=== PATIENT | female | born 1950 | race Caucasian/White ===

== ENCOUNTER 2017-03-19 12:10 | Inpatient (IN) | payer OTHER ==
[~2017-03-19] VITALS: Ht 167.6 cm; Wt 64.2 kg
[~2017-03-19 12:10] MED LIST: FOLI-17 PO; METH-356 PO; MULT1TAB60 PO; THIA100T6 PO; [UNRECOGNIZED DRUG - REMARK]
[2017-03-19] MEDS ORDERED: SODIUM CHLORIDE 0.9% 1,000 ML IV ONE (12:27)
[2017-03-19] MEDS ORDERED: CEFTRIAXONE PMX 2GM/50ML 50 ML IV SCH (12:30)
[2017-03-19] MEDS ORDERED: DEXAMETHASONE 4 MG/ML, 1ML IVPush ONE (12:30)
[2017-03-19] MEDS ORDERED: ACETAMINOPHEN 650 MG SUPP PR ONE (12:30)
[2017-03-19] MEDS ORDERED: SODIUM CHLORIDE FLUSH 10ML SYR IVF ONE (12:30)
[2017-03-19] MEDS ORDERED: SODIUM CHLORIDE 0.9% 1,000ML IVBOLUS ONE ×2 (12:30→14:30)
[2017-03-19] MEDS ORDERED: LORazepam 2 MG/ML, 1ML ONE (12:55)
[2017-03-19] MEDS ORDERED: LORazepam 2 MG/ML, 1ML IVPush ONE (13:00)
[2017-03-19] MEDS ORDERED: PLEASE ENTER HEIGHT AND WEIGHT MC SCH (13:00)
[2017-03-19 13:25] LABS: HEMOGLOBIN 9.8 g/dL (11.7-16.4); WHITE BLOOD COUNT 9.5 x10^3/uL (3.4-10)
[2017-03-19 13:38] LABS: ASPARTATE AMINO TRANSFERASE 16 U/L (15-37); BLOOD UREA NITROGEN 15 mg/dL (7-18)
[2017-03-19 13:43] LABS: IS PT STATUS REG ER OR PRE ER? YES
[2017-03-19] MEDS ORDERED: ACETAMINOPHEN 650 MG SUPP ONE (13:56)
[2017-03-19] MEDS ORDERED: CEFTRIAXONE PMX 2GM/50ML 50 ML ONE (13:56)
[2017-03-19] MEDS ORDERED: DEXAMETHASONE 4 MG/ML, 5ML ONE (14:10)
[2017-03-19 14:30] LABS: GLUCOSE, CSF 70 mg/dL (40-80)
[2017-03-19] MEDS ORDERED: PIPERACILLIN/TAZO/PMX 3.375GM 50 ML IV ONE (14:30)
[2017-03-19] MEDS ORDERED: PIPERACILLIN/TAZO/PMX 3.375GM 50 ML ONE (14:46)
[2017-03-19 16:35] VITALS: BP 159/81
[2017-03-19] MEDS ORDERED: LORazepam 2 MG/ML, 1ML IVPush PRN (19:00)
[2017-03-19] MEDS ORDERED: PROMETHAZINE 25 MG/ML, 1ML IM PRN (19:00)
[2017-03-19] MEDS ORDERED: POLYETHYLENE GLYCOL 17 GM PACKET PO PRN (19:00)
[2017-03-19] MEDS ORDERED: BISACODYL 10 MG SUPP PR PRN (19:00)
[2017-03-19] MEDS ORDERED: ACETAMINOPHEN 325 MG TABLET PO PRN (19:00)
[2017-03-19] MEDS ORDERED: DOCUSATE 100 MG CAPSULE PO PRN (19:00)
[2017-03-19] MEDS ORDERED: MAGNESIUM SULFATE PMX 2GM/50ML 50 ML IV ONE (19:00)
[2017-03-19 19:48] LABS: IS PT STATUS REG ER OR PRE ER? NO
[2017-03-19 20:00] VITALS: BP 149/83
[2017-03-19] MEDS: ENOXAPARIN 40 MG/0.4 ML SQ SCH (20:49)
[2017-03-19] MEDS: FAMOTIDINE 20 MG/2 ML IVPush SCH (20:49)
[2017-03-19] MEDS: METHADONE 10 MG TABLET PO SCH (20:49)
[2017-03-19] MEDS: PIPERACILLIN/TAZO/PMX 3.375GM 50 ML IV SCH (23:05)
[2017-03-20] MEDS: SODIUM CHLORIDE 0.9% 1,000 ML IV SCH ×2 (01:08→09:12)
[2017-03-20 01:51] LABS: IS PT STATUS REG ER OR PRE ER? NO
[2017-03-20 02:00] VITALS: BP 144/77
[2017-03-20 04:48] LABS: DAU SCREEN DISCLAIMER
[2017-03-20 05:27] LABS: HEMATOCRIT 29.9 % (34.6-47.8); HEMOGLOBIN 9.8 g/dL (11.7-16.4); WHITE BLOOD COUNT 5.2 x10^3/uL (3.4-10)
[2017-03-20 05:53] LABS: ASPARTATE AMINO TRANSFERASE 19 U/L (15-37); BLOOD UREA NITROGEN 9 mg/dL (7-18)
[2017-03-20 06:34] LABS: DIFF TOTAL CELLS COUNTED 100 CELL DIFF
[2017-03-20 06:36] LABS: ANISOCYTOSIS 1+; MICROCYTOSIS 1+; VERIFY COUNTS? YES
[2017-03-20 06:40] VITALS: BP 123/71
[2017-03-20] MEDS: PIPERACILLIN/TAZO/PMX 3.375GM 50 ML IV SCH (07:08)
[2017-03-20] MEDS ORDERED: FOLIC ACID 1 MG TABLET PO SCH (09:00)
[2017-03-20] MEDS: METHADONE 10 MG TABLET PO SCH ×2 (09:13→21:57)
[2017-03-20] MEDS: THIAMINE 100MG TABLET PO SCH (09:13)
[2017-03-20] MEDS: FOLIC ACID 1 MG TABLET PO SCH (09:13)
[2017-03-20] MEDS: MULTIVITAMIN 1 TABLET PO SCH (09:13)
[2017-03-20] MEDS: FAMOTIDINE 20 MG/2 ML IVPush SCH ×2 (09:13→21:57)
[2017-03-20] MEDS ORDERED: POTASSIUM CHLORIDE 20 MEQ TAB.ER.PRT PO ONE (10:00)
[2017-03-20 12:02] VITALS: BP 120/69
[2017-03-20 20:48] VITALS: BP 111/67
[2017-03-20] MEDS: ENOXAPARIN 40 MG/0.4 ML SQ SCH (21:57)
[2017-03-21 01:53] VITALS: BP 137/78
[2017-03-21 07:20] VITALS: BP 138/77
[2017-03-21] MEDS: FOLIC ACID 1 MG TABLET PO SCH (08:36)
[2017-03-21] MEDS: METHADONE 10 MG TABLET PO SCH (08:36)
[2017-03-21] MEDS: FAMOTIDINE 20 MG/2 ML IVPush SCH (08:36)
[2017-03-21] MEDS: MULTIVITAMIN 1 TABLET PO SCH (08:37)
[2017-03-21] MEDS: THIAMINE 100MG TABLET PO SCH (08:37)
[2017-03-21] MEDS ORDERED: FAMOTIDINE 20 MG TABLET PO SCH (21:00)
== END 2017-03-21 15:37 | disposition home or self-care (01) | DRG 896 ==
LOC: ED 14:22 → EDIP 14:32 → ED 14:42 → 4EST 16:30 → DCLOUNGE 03-21 15:24
PROVIDERS: ADMIT Internal Medicine; ATTEND Internal Medicine
PROC: 0T9B70Z Drainage of Bladder with Drainage Device, Via Natural or Artificial Opening (ICD-10-PCS; principal; 2017-03-19)
PROC: 009U3ZX Drainage of Spinal Canal, Percutaneous Approach, Diagnostic (ICD-10-PCS; 2017-03-19)
DX: F19.90 Other psychoactive substance use, unspecified, uncomplicated (principal); E43 Unspecified severe protein-calorie malnutrition; F11.90 Opioid use, unspecified, uncomplicated; E87.2 Acidosis; W19.XXXA Unspecified fall, initial encounter; F10.239 Alcohol dependence with withdrawal, unspecified; G40.901 Epilepsy, unspecified, not intractable, with status epilepticus; F17.200 Nicotine dependence, unspecified, uncomplicated; Y93.89 Activity, other specified; Y92.89 Other specified places as the place of occurrence of the external cause; Y99.8 Other external cause status; Z87.11 Personal history of peptic ulcer disease; Z98.51 Tubal ligation status
CPT/HCPCS: 36415; 62270; 70450; 71010; 80053; 80307; 81001; 82140; 82550; 82945; 83605; 83690; 83735; 84100; 84145; 84157; 84443; 84484; 85025; 85610; 85730; 87040; 87070; 87205; 89051; 93005; 96365; 96367; 96375; J0696; J1100; J1650; J2543; G0479; J2060; J3475; J7030; S0028

== ENCOUNTER 2017-04-30 14:15 | Emergency (ER) | payer OTHER ==
[~2017-04-30] VITALS: Ht 170.2 cm; Wt 62.0 kg
[2017-04-30] MEDS ORDERED: SODIUM CHLORIDE 0.9% 1,000 ML IV ONE (14:29)
[2017-04-30] MEDS ORDERED: ONDANSETRON 2MG/ML, 2ML IVPush ONE (14:30)
[2017-04-30] MEDS ORDERED: LORazepam 2 MG/ML, 1ML IVPush PRN (14:30)
[2017-04-30] MEDS ORDERED: SODIUM CHLORIDE 0.9% 1,000ML IVBOLUS ONE (14:30)
[2017-04-30] MEDS ORDERED: THIAMINE 100 MG in SODIUM CHLORIDE 0.9% 50 ML IVPB ONE (14:30)
[2017-04-30] MEDS ORDERED: SODIUM CHLORIDE FLUSH 10ML SYR IVF ONE (14:30)
[2017-04-30] MEDS ORDERED: ONDANSETRON 2MG/ML, 2ML ONE (14:48)
[2017-04-30] MEDS ORDERED: LORazepam 2 MG/ML, 1ML ONE (14:48)
[2017-04-30 15:05] LABS: ALANINE AMINOTRANSFERASE 14 U/L (12-78); ALBUMIN 3.2 g/dL (3.4-5.0); ANION GAP 11 mmol/L (5-15); CALCIUM 8.3 mg/dL (8.5-10.1); CHLORIDE 99 mmol/L (98-107)
[2017-04-30 15:09] LABS: ALKALINE PHOSPHATASE 108 U/L (45-117); BILIRUBIN,TOTAL 0.8 mg/dL (0.2-1.0); TOTAL PROTEIN 7.3 g/dL (6.4-8.2)
[2017-04-30 15:31] LABS: MD YES; MEAN CORPUSCULAR HEMOGLOBIN 26.5 pg (27.0-34.8); MEAN CORPUSCULAR HGB CONC 32.8 g/dL (32.4-35.8); MEAN CORPUSCULAR VOLUME 80.7 fL (80-100); MEAN PLATELET VOLUME 8.4 fL (7.4-10.4); PLATELET COUNT 232 x10^3/uL (130-400)
[2017-04-30 15:35] LABS: <PLATELET ESTIMATE> ADEQUATE; <PLT MORPHOLOGY> NORMAL PLT MORPH; <RBC MORPHOLOGY> NORMAL; EOS% (MANUAL) 2 % (1-7); LYMPHS% (MANUAL) 57 % (22-44); MONOS% (MANUAL) 9 % (2-9); SEGS% (MANUAL) 32 % (42-75)
[2017-04-30 16:15] LABS: EOS#(MANUAL) 0.11 x10^3/uL (0.0-0.4); LYMPH#(MANUAL) 3.02 x10^3/uL (1-3.4); MONOS#(MANUAL) 0.48 x10^3/uL (0.3-2.7)
[2017-04-30 16:57] VITALS: BP 130/86
== END 2017-04-30 16:59 | disposition home or self-care (01) ==
LOC: ED 16:42
DX: B96.89 Other specified bacterial agents as the cause of diseases classified elsewhere (principal); F10.129 Alcohol abuse with intoxication, unspecified; F11.90 Opioid use, unspecified, uncomplicated; F17.210 Nicotine dependence, cigarettes, uncomplicated
CPT/HCPCS: 36415; 71020; 80053; 83605; 83690; 83880; 85025; 87040; 93005; 96361; 96365; 96375; 99285; J2060; J2405; J3411; J7030

== ENCOUNTER 2018-03-27 09:44 | Inpatient (IN) | payer OTHER ==
[~2018-03-27] VITALS: Ht 170.2 cm; Wt 65.7 kg
[~2018-03-27 09:44] MED LIST changes: -THIA100T6 PO; +THIA100T67 PO
[2018-03-27] MEDS ORDERED: PANTOPRAZOLE 80 MG in SODIUM CHLORIDE 0.9% 50 ML IVPB ONE (10:25)
[2018-03-27] MEDS ORDERED: SODIUM CHLORIDE 0.9% 1,000 ML IV ONE (10:25)
[2018-03-27] MEDS ORDERED: SODIUM CHLORIDE FLUSH 10ML SYR IVF ONE (10:30)
[2018-03-27] MEDS ORDERED: ONDANSETRON 2MG/ML, 2ML IVPush ONE (10:30)
[2018-03-27] MEDS ORDERED: SODIUM CHLORIDE 0.9% 1,000ML IVBOLUS ONE (10:30)
[2018-03-27] MEDS ORDERED: ONDANSETRON 2MG/ML, 2ML ONE (10:43)
[2018-03-27 10:52] LABS: BASOPHILS # (AUTO) 0.05 x10^3/uL (0-0.1); BASOPHILS % (AUTO) 1 % (0-1); EOSINOPHILS % (AUTO) 0 % (1-7); LYMPHOCYTES # (AUTO) 0.82 x10^3/uL (1-3.4); LYMPHOCYTES % (AUTO) 9 % (22-44); MD NO; MEAN CORPUSCULAR HEMOGLOBIN 35.1 pg (27.0-34.8); MEAN CORPUSCULAR HGB CONC 33.8 g/dL (32.4-35.8); MEAN CORPUSCULAR VOLUME 103.7 fL (80-100); MEAN PLATELET VOLUME 8.3 fL (7.4-10.4); MONOCYTES # (AUTO) 0.69 x10^3/uL (0.2-0.8); MONOCYTES % (AUTO) 7 % (2-9); NEUTROPHILS # (AUTO) 7.73 x10^3/uL (1.8-6.8); NEUTROPHILS % (AUTO) 83 % (42-75); PLATELET COUNT 271 x10^3/uL (130-400); RED BLOOD COUNT 3.59 x10^6/uL (3.82-5.3); RED CELL DISTRIBUTION WIDTH 14.5 % (9.6-15.2)
[2018-03-27 10:57] LABS: INTERNATIONAL NORMALIZED RATIO 1.08 (0.93-1.1); PROTHROMBIN TIME 11.4 Seconds (9.6-11.5)
[2018-03-27 10:58] LABS: ALANINE AMINOTRANSFERASE 30 U/L (12-78); ALBUMIN 3.1 g/dL (3.4-5.0); ANION GAP 10 mmol/L (5-15); CHLORIDE 89 mmol/L (98-107); CREATININE 0.56 mg/dL (0.55-1.02)
[2018-03-27] MEDS ORDERED: METH-356 PO (10:58)
[2018-03-27 11:00] LABS: ALKALINE PHOSPHATASE 107 U/L (45-117); BILIRUBIN,TOTAL 1.1 mg/dL (0.2-1.0); TOTAL PROTEIN 6.9 g/dL (6.4-8.2)
[2018-03-27] MEDS: PANTOPRAZOLE 80 MG in SODIUM CHLORIDE 0.9% 100 ML IV SCH ×3 (11:19→14:16)
[2018-03-27] MEDS ORDERED: PROMETHAZINE 25 MG/ML, 1ML ONE (11:22)
[2018-03-27] MEDS ORDERED: PROMETHAZINE 25 MG/ML, 1ML IM ONE (11:30)
[2018-03-27] MEDS ORDERED: ACETAMINOPHEN 325 MG TABLET PO PRN (12:30)
[2018-03-27] MEDS ORDERED: TEMAZEPAM 15 MG CAPSULE PO PRN (12:30)
[2018-03-27] MEDS ORDERED: LORazepam 1MG TABLET PO PRN (12:30)
[2018-03-27] MEDS ORDERED: ONDANSETRON ODT 4 MG PO PRN (12:30)
[2018-03-27] MEDS ORDERED: ONDANSETRON 2MG/ML, 2ML IVPush PRN (12:30)
[2018-03-27] MEDS ORDERED: LABETALOL 5MG/ML, 20ML IVPush PRN (12:30)
[2018-03-27] MEDS ORDERED: SODIUM CHLORIDE FLUSH 10ML SYR IVF PRN (13:00)
[2018-03-27] MEDS ORDERED: NS + 20MEQ KCL 1,000 ML IV ONE (14:10)
[2018-03-27] MEDS ORDERED: NS + 20MEQ KCL 1,000 ML IV SCH (14:18)
[2018-03-27] MEDS: NICOTINE 21 MG/24 HR PATCH.TD24 TD SCH (14:18)
[2018-03-27] MEDS: THIAMINE 200 MG, MVI ADULT 10 ML, FOLIC ACID 1 MG in D5%-0.9% NACL 1,000 ML IV SCH (16:21)
[2018-03-27 16:30] VITALS: BP 153/89
[2018-03-27 20:48] VITALS: BP 140/88
[2018-03-27] MEDS: LORazepam 2 MG/ML, 1ML IVPush PRN (23:02)
[2018-03-27 23:21] VITALS: BP 153/89
[2018-03-27 23:56] LABS: MICROSCOPIC NOT IND
[2018-03-28] LABS: CULTURE INDICATED? NO
[2018-03-28] MEDS: PANTOPRAZOLE 80 MG in SODIUM CHLORIDE 0.9% 100 ML IV SCH ×2 (00:03→14:33)
[2018-03-28 00:38] VITALS: BP 130/83
[2018-03-28 06:17] LABS: BASOPHILS # (AUTO) 0.03 x10^3/uL (0-0.1); BASOPHILS % (AUTO) 0 % (0-1); EOSINOPHILS # (AUTO) 0.04 x10^3/uL (0-0.4); EOSINOPHILS % (AUTO) 1 % (1-7); LYMPHOCYTES # (AUTO) 1.37 x10^3/uL (1-3.4); LYMPHOCYTES % (AUTO) 21 % (22-44); MD NO; MEAN CORPUSCULAR HEMOGLOBIN 35.4 pg (27.0-34.8); MEAN CORPUSCULAR HGB CONC 34.3 g/dL (32.4-35.8); MEAN CORPUSCULAR VOLUME 103.3 fL (80-100); MEAN PLATELET VOLUME 8.1 fL (7.4-10.4); MONOCYTES # (AUTO) 0.58 x10^3/uL (0.2-0.8); MONOCYTES % (AUTO) 9 % (2-9); NEUTROPHILS # (AUTO) 4.62 x10^3/uL (1.8-6.8); NEUTROPHILS % (AUTO) 70 % (42-75); PLATELET COUNT 198 x10^3/uL (130-400); RED BLOOD COUNT 2.65 x10^6/uL (3.82-5.3); RED CELL DISTRIBUTION WIDTH 14.9 % (9.6-15.2)
[2018-03-28 06:24] LABS: ALANINE AMINOTRANSFERASE 18 U/L (12-78); ALBUMIN 2.5 g/dL (3.4-5.0); ANION GAP 8 mmol/L (5-15); CALCIUM 7.4 mg/dL (8.5-10.1); CHLORIDE 101 mmol/L (98-107)
[2018-03-28 06:26] LABS: ALKALINE PHOSPHATASE 78 U/L (45-117); TOTAL PROTEIN 5.3 g/dL (6.4-8.2)
[2018-03-28 07:53] VITALS: BP 129/75
[2018-03-28] MEDS: LORazepam 2 MG/ML, 1ML IVPush PRN (07:59)
[2018-03-28] MEDS ORDERED: THIAMINE HCL 100 MG PO SCH (09:00)
[2018-03-28] MEDS ORDERED: MULTIVITAMIN PO SCH (09:00)
[2018-03-28] MEDS ORDERED: SUCCINYLCHOLINE 20 MG/ML, 10ML ONE (11:00)
[2018-03-28] MEDS ORDERED: PROPOFOL 10 MG/ML, 20ML ONE (11:00)
[2018-03-28] MEDS ORDERED: POTASSIUM CHLORIDE 40 MEQ in SODIUM CHLORIDE 0.9% 1,000 ML IV SCH (11:00)
[2018-03-28] MEDS ORDERED: FENTANYL PF 100 MCG/2ML ONE (11:03)
[2018-03-28] MEDS ORDERED: MIDAZOLAM 1 MG/ML, 2ML ONE (11:03)
[2018-03-28] MEDS ORDERED: OXYcodone 5 MG/5 ML ORAL.SOL UDC PO PRN (11:30)
[2018-03-28] MEDS ORDERED: LABETALOL 5MG/ML, 20ML IV PRN (11:30)
[2018-03-28] MEDS ORDERED: MEPERIDINE/PF 25MG/0.5ML IVPush PRN (11:30)
[2018-03-28] MEDS ORDERED: ONDANSETRON 2MG/ML, 2ML IVPush PRN (11:30)
[2018-03-28] MEDS ORDERED: MIDAZOLAM 1 MG/ML, 2ML IV PRN (11:30)
[2018-03-28] MEDS ORDERED: FENTANYL PF 100 MCG/2ML IV PRN (11:30)
[2018-03-28] MEDS ORDERED: HYDROmorphone 1 MG/ML, 1ML IV PRN (11:30)
[2018-03-28 12:37] VITALS: BP 119/83
[2018-03-28] MEDS: METHADONE 40 MG TABLET.SOL PO SCH (12:51)
[2018-03-28] MEDS ORDERED: MAGNESIUM SULFATE PMX 2GM/50ML 50 ML IV ONE (13:00)
[2018-03-28] MEDS: NICOTINE 21 MG/24 HR PATCH.TD24 TD SCH (14:18)
[2018-03-28] MEDS: THIAMINE 200 MG, MVI ADULT 10 ML, FOLIC ACID 1 MG in D5%-0.9% NACL 1,000 ML IV SCH (16:20)
[2018-03-28] MEDS: POTASSIUM CHLORIDE 20 MEQ TAB.ER.PRT PO SCH (17:17)
[2018-03-28 20:04] VITALS: BP 142/89
[2018-03-28] MEDS: METHOCARBAMOL 500 MG TABLET PO PRN (20:29)
[2018-03-29] MEDS: PANTOPRAZOLE 80 MG in SODIUM CHLORIDE 0.9% 100 ML IV SCH (00:12)
[2018-03-29 00:27] VITALS: BP 168/90
[2018-03-29 05:43] LABS: BASOPHILS # (AUTO) 0.02 x10^3/uL (0-0.1); BASOPHILS % (AUTO) 0 % (0-1); EOSINOPHILS % (AUTO) 0 % (1-7); LYMPHOCYTES % (AUTO) 17 % (22-44); MD NO; MEAN CORPUSCULAR HGB CONC 33.8 g/dL (32.4-35.8); MEAN CORPUSCULAR VOLUME 103.6 fL (80-100); MONOCYTES # (AUTO) 0.37 x10^3/uL (0.2-0.8); MONOCYTES % (AUTO) 8 % (2-9); NEUTROPHILS # (AUTO) 3.52 x10^3/uL (1.8-6.8); NEUTROPHILS % (AUTO) 75 % (42-75); PLATELET COUNT 210 x10^3/uL (130-400); RED BLOOD COUNT 2.74 x10^6/uL (3.82-5.3); RED CELL DISTRIBUTION WIDTH 14.6 % (9.6-15.2)
[2018-03-29 05:48] LABS: ANION GAP 6 mmol/L (5-15); CALCIUM 7.6 mg/dL (8.5-10.1); CHLORIDE 100 mmol/L (98-107); CREATININE 0.43 mg/dL (0.55-1.02)
[2018-03-29 07:40] VITALS: BP 163/84
[2018-03-29] MEDS: POTASSIUM CHLORIDE 20 MEQ TAB.ER.PRT PO SCH ×3 (08:41→15:42)
[2018-03-29] MEDS: METHADONE 40 MG TABLET.SOL PO SCH (08:41)
[2018-03-29] MEDS ORDERED: MULTIVITAMIN 1 TABLET PO SCH (10:00)
[2018-03-29] MEDS ORDERED: FOLIC ACID 1 MG TABLET PO SCH (10:00)
[2018-03-29] MEDS ORDERED: LORazepam 1MG TABLET PO PRN ×3 (10:00)
[2018-03-29] MEDS ORDERED: THIAMINE 100MG TABLET PO SCH (10:00)
[2018-03-29] MEDS ORDERED: LORazepam 0.5MG TABLET PO PRN (10:00)
[2018-03-29] MEDS ORDERED: NICO-487 TD (12:20)
[2018-03-29] MEDS ORDERED: FOLI-17 PO (12:20)
[2018-03-29] MEDS ORDERED: OMEP-110 PO (12:20)
[2018-03-29 12:45] VITALS: BP 122/77
[2018-03-29] MEDS: NICOTINE 21 MG/24 HR PATCH.TD24 TD SCH (14:18)
[2018-03-29] MEDS: METHOCARBAMOL 500 MG TABLET PO PRN (16:18)
[2018-03-29] MEDS ORDERED: POTASSIUM CHLORIDE 20 MEQ TAB.ER.PRT PO SCH (17:00)
[2018-03-29] MEDS ORDERED: OMEPRAZOLE 20 MG CAPSULE.DR PO SCH (21:00)
[2018-03-30] MEDS ORDERED: MULTIVITAMIN 1 TABLET PO SCH (09:00)
== END 2018-03-29 19:12 | disposition home or self-care (01) | DRG 378 ==
LOC: ED 13:14 → EDIP 13:15 → 4EST 15:59
PROVIDERS: ADMIT Internal Medicine; ATTEND Internal Medicine
PROC: 0DJ08ZZ Inspection of Upper Intestinal Tract, Via Natural or Artificial Opening Endoscopic (ICD-10-PCS; principal; 2018-03-28 10:30)
DX: K25.4 Chronic or unspecified gastric ulcer with hemorrhage (principal); D62 Acute posthemorrhagic anemia; E87.1 Hypo-osmolality and hyponatremia; F10.239 Alcohol dependence with withdrawal, unspecified; E44.0 Moderate protein-calorie malnutrition; K29.61 Other gastritis with bleeding; F17.210 Nicotine dependence, cigarettes, uncomplicated; G40.909 Epilepsy, unspecified, not intractable, without status epilepticus; G89.4 Chronic pain syndrome; I10 Essential (primary) hypertension; K70.10 Alcoholic hepatitis without ascites; F19.10 Other psychoactive substance abuse, uncomplicated; K44.9 Diaphragmatic hernia without obstruction or gangrene; T50.2X5A Adverse effect of carbonic-anhydrase inhibitors, benzothiadiazides and other diuretics, initial encounter; J44.9 Chronic obstructive pulmonary disease, unspecified; E87.6 Hypokalemia; Z87.11 Personal history of peptic ulcer disease; Z90.710 Acquired absence of both cervix and uterus; Z98.51 Tubal ligation status; Z79.899 Other long term (current) drug therapy; Y92.89 Other specified places as the place of occurrence of the external cause
CPT/HCPCS: 36415; 74021; 80048; 80053; 81003; 83690; 83735; 84100; 85018; 85025; 85610; 85730; 86850; 86900; 93005; 96361; 96365; 96375; 99291; G0378; J2250; J2405; J2550; J2704; J3010; J3411; J3480; J7042; C9113; J0330; J2060; J3475; J7030

== ENCOUNTER 2018-08-09 10:31 | Inpatient (IN) | payer OTHER ==
[~2018-08-09] VITALS: Ht 170.2 cm; Wt 61.7 kg
[~2018-08-09 10:31] MED LIST changes: -METH-356 PO; +METH10TA2 PO; +NICO-487 TD; +OMEP-110 PO
--- NOTE | 2018-08-09 11:10 | NUR ---
68 Y/O FEMALE PRESENTS TO ED WITH C/O HEMATEMESIS. PER PT "I THREW UP SOME BLOOD EARLIER TODAY. AND WHEN I WENT TO THE BATHROOM I POOPED THE SAME COLOR. I'VE BEEN TAKING IBUPROFEN THE LAST FEW DAYS AND I DRINK ABOUT 6 BEERS A DAY. I KNOW IT DOESN'T HELP. THIS HAS HAPPENED BEFORE." PT PLACED ON CONT PULSE OX,NIBP, MANAGER ENROLLMENT. NO C/O N/V/D, TRAUMA, CP, SOB, SYNCOPE.
[2018-08-09] MEDS ORDERED: PANTOPRAZOLE 80 MG in SODIUM CHLORIDE 0.9% 50 ML IVPB ONE (11:45)
[2018-08-09] MEDS ORDERED: ONDANSETRON 2MG/ML, 2ML IVPush ONE (12:00)
[2018-08-09] MEDS ORDERED: ONDANSETRON 2MG/ML, 2ML ONE (12:17)
--- NOTE | 2018-08-09 12:31 | NUR ---
PIV ESTABLISHED. PT TOLERATED WITH NO COMPLICATIONS
[2018-08-09 12:39] LABS: BASOPHILS # (AUTO) 0.08 x10^3/uL (0-0.1); BASOPHILS % (AUTO) 1 % (0-1); EOSINOPHILS # (AUTO) 0.03 x10^3/uL (0-0.4); EOSINOPHILS % (AUTO) 0 % (1-7); LYMPHOCYTES # (AUTO) 1.23 x10^3/uL (1-3.4); LYMPHOCYTES % (AUTO) 11 % (22-44); MD NO; MEAN CORPUSCULAR HEMOGLOBIN 30.5 pg (27.0-34.8); MEAN CORPUSCULAR HGB CONC 33.5 g/dL (32.4-35.8); MEAN CORPUSCULAR VOLUME 91.3 fL (80-100); MEAN PLATELET VOLUME 8.3 fL (7.4-10.4); MONOCYTES # (AUTO) 0.55 x10^3/uL (0.2-0.8); MONOCYTES % (AUTO) 5 % (2-9); NEUTROPHILS # (AUTO) 9.47 x10^3/uL (1.8-6.8); NEUTROPHILS % (AUTO) 84 % (42-75); PLATELET COUNT 350 x10^3/uL (130-400); RED BLOOD COUNT 3.21 x10^6/uL (3.82-5.3); RED CELL DISTRIBUTION WIDTH 20.1 % (9.6-15.2)
[2018-08-09 12:40] LABS: ALBUMIN 2.5 g/dL (3.4-5.0); ANION GAP 9 mmol/L (5-15); CHLORIDE 93 mmol/L (98-107)
[2018-08-09 12:44] LABS: ALANINE AMINOTRANSFERASE 16 U/L (12-78); ALKALINE PHOSPHATASE 179 U/L (45-117); BILIRUBIN,TOTAL 0.4 mg/dL (0.2-1.0); CREATININE 0.54 mg/dL (0.55-1.02); TOTAL PROTEIN 6.2 g/dL (6.4-8.2)
[2018-08-09 12:49] LABS: INTERNATIONAL NORMALIZED RATIO 1.02 (0.93-1.1); PROTHROMBIN TIME 10.7 Seconds (9.6-11.5)
[2018-08-09] MEDS ORDERED: VITA1TAB3 PO (13:58)
--- NOTE | 2018-08-09 13:58 | NUR ---
PT RESTING ON GURNEY. NO ACUTE DISTRESS NOTED. SOMETIMES PT IS SITTING ON GURNEY. SOMETIMES PT IS LAYING BACK. PT AWARE OF POC. NO NEEDS REQUESTED AT THIS TIME
--- NOTE | 2018-08-09 14:34 | NUR ---
PT BEING TRANSFERRED TO FLOOR. PT LEFT WITH ALL PERSONAL BELONGINGS. PT AWARE OF POC. PT VERBALIZES UNDERSTANDING. NO ACUTE DISTRESS NOTED.
[2018-08-09] MEDS ORDERED: LABETALOL 5MG/ML, 20ML IVPush PRN (15:30)
[2018-08-09] MEDS ORDERED: ACETAMINOPHEN 325 MG TABLET PO PRN (15:30)
[2018-08-09] MEDS: NICOTINE 21 MG/24 HR PATCH.TD24 TD SCH (16:00)
[2018-08-09] MEDS: SODIUM CHLORIDE 0.9% 1,000 ML IV SCH (17:05)
[2018-08-09 17:24] VITALS: BP 118/78
[2018-08-09 19:18] VITALS: BP 123/86
[2018-08-09] MEDS: PANTOPRAZOLE 80 MG in SODIUM CHLORIDE 0.9% 100 ML IV SCH (20:12)
[2018-08-09] MEDS: ONDANSETRON 2MG/ML, 2ML IVPush PRN (20:28)
[2018-08-10 02:27] VITALS: BP 117/79
[2018-08-10 03:51] LABS: ALANINE AMINOTRANSFERASE 16 U/L (12-78); ALBUMIN 2.1 g/dL (3.4-5.0); ANION GAP 7 mmol/L (5-15); CALCIUM 7.6 mg/dL (8.5-10.1); CHLORIDE 100 mmol/L (98-107)
[2018-08-10 03:53] LABS: ALKALINE PHOSPHATASE 141 U/L (45-117); BILIRUBIN,TOTAL 0.7 mg/dL (0.2-1.0); CREATININE 0.48 mg/dL (0.55-1.02); TOTAL PROTEIN 5.3 g/dL (6.4-8.2)
[2018-08-10] MEDS ORDERED: MORPHINE SULFATE 4 MG/ML, 1ML IVPush ONE (04:00)
[2018-08-10] MEDS: PANTOPRAZOLE 80 MG in SODIUM CHLORIDE 0.9% 100 ML IV SCH (06:04)
[2018-08-10] MEDS: MAGNESIUM SULFATE PMX 2GM/50ML 50 ML IV ONE ×2 (07:00→12:41)
[2018-08-10 07:45] VITALS: BP 107/73
[2018-08-10] MEDS: THIAMINE 100MG TABLET PO SCH (09:00)
[2018-08-10] MEDS: MULTIVITAMIN 1 TABLET PO SCH (09:00)
[2018-08-10] MEDS: FOLIC ACID 1 MG TABLET PO SCH (09:00)
[2018-08-10] MEDS ORDERED: PROPOFOL 10 MG/ML, 20ML ONE (09:20)
[2018-08-10] MEDS ORDERED: OXYcodone 5 MG/5 ML ORAL.SOL UDC PO PRN (10:00)
[2018-08-10] MEDS ORDERED: FENTANYL PF 100 MCG/2ML IV PRN (10:00)
[2018-08-10] MEDS ORDERED: ONDANSETRON 2MG/ML, 2ML IV PRN (10:00)
[2018-08-10] MEDS ORDERED: ONDANSETRON ODT 8 MG PO PRN (10:00)
[2018-08-10] MEDS ORDERED: MORPHINE SULFATE 4 MG/ML, 1ML IVPush PRN (10:00)
[2018-08-10] MEDS ORDERED: [UNRECOGNIZED DRUG - REMARK] MC SCH (11:00)
[2018-08-10 12:26] VITALS: BP 135/86
[2018-08-10] MEDS: ONDANSETRON 2MG/ML, 2ML IVPush PRN ×2 (12:41→20:44)
[2018-08-10] MEDS: MORPHINE SULFATE 4 MG/ML, 1ML IVPush PRN ×2 (12:41→20:43)
[2018-08-10] MEDS: SUCRALFATE 1 GM/10 ML UDC PO SCH ×3 (13:52→20:44)
[2018-08-10] MEDS: DOXYCYCLINE 100MG TABLET PO SCH ×2 (13:52→20:44)
[2018-08-10] MEDS: AMOXICILLIN/CLAV 875-125MG TABLET PO SCH ×2 (13:52→20:44)
[2018-08-10] MEDS: SODIUM CHLORIDE 0.9% 1,000 ML IV SCH (15:03)
[2018-08-10] MEDS: NICOTINE 21 MG/24 HR PATCH.TD24 TD SCH (16:00)
[2018-08-10] MEDS: OXYcodone/APAP 5/325MG TABLET PO PRN (17:42)
[2018-08-10 19:45] VITALS: BP 116/69
[2018-08-10] MEDS: PANTOPROZOLE 40MG TABLET PO SCH (20:44)
[2018-08-10] MEDS: MAGNESIUM OXIDE 400 MG TABLET PO SCH (20:44)
[2018-08-11] VITALS (8 sets, daily range): BP systolic 99–135; BP diastolic 58–86
[2018-08-11] MEDS: OXYcodone/APAP 5/325MG TABLET PO PRN ×4 (00:03→22:29)
[2018-08-11] MEDS: SODIUM CHLORIDE 0.9% 1,000 ML IV SCH ×3 (01:48→20:22)
[2018-08-11] MEDS: PANTOPROZOLE 40MG TABLET PO SCH ×2 (05:12→17:35)
[2018-08-11] MEDS: ONDANSETRON ODT 4 MG PO PRN ×3 (05:12→20:21)
[2018-08-11 05:44] LABS: MEAN CORPUSCULAR HGB CONC 32.5 g/dL (32.4-35.8); MEAN CORPUSCULAR VOLUME 92.3 fL (80-100); MEAN PLATELET VOLUME 7.9 fL (7.4-10.4); PLATELET COUNT 275 x10^3/uL (130-400); RED BLOOD COUNT 2.26 x10^6/uL (3.82-5.3); RED CELL DISTRIBUTION WIDTH 20.3 % (9.6-15.2)
[2018-08-11 05:50] LABS: CHLORIDE 104 mmol/L (98-107)
[2018-08-11 05:58] LABS: ALANINE AMINOTRANSFERASE 13 U/L (12-78); ALBUMIN 2.1 g/dL (3.4-5.0); ALKALINE PHOSPHATASE 129 U/L (45-117); ANION GAP 7 mmol/L (5-15); BILIRUBIN,TOTAL 0.5 mg/dL (0.2-1.0); CALCIUM 7.6 mg/dL (8.5-10.1)
[2018-08-11 06:29] LABS: MD YES
[2018-08-11 06:33] LABS: <PLATELET ESTIMATE> ADEQUATE; <PLT MORPHOLOGY> NORMAL PLT MORPH; ANISOCYTOSIS 1+; BAND#(MANUAL) 0.05 x10^3/uL; BANDS%(MANUAL) 1 % (0-7); EOS#(MANUAL) 0.18 x10^3/uL (0.0-0.4); EOS% (MANUAL) 4 % (1-7); HYPOCHROMIA 1+; LYMPH#(MANUAL) 1.49 x10^3/uL (1-3.4); LYMPHS% (MANUAL) 33 % (22-44); MONOS#(MANUAL) 0.45 x10^3/uL (0.3-2.7); MONOS% (MANUAL) 10 % (2-9); POLYCHROMASIA 1+; SEG#(MANUAL) 2.34 x10^3/uL (1.8-6.8); SEGS% (MANUAL) 52 % (42-75)
[2018-08-11] MEDS: DOXYCYCLINE 100MG TABLET PO SCH ×2 (08:12→20:21)
[2018-08-11] MEDS: MULTIVITAMIN 1 TABLET PO SCH (08:12)
[2018-08-11] MEDS: THIAMINE 100MG TABLET PO SCH (08:12)
[2018-08-11] MEDS: MORPHINE SULFATE 4 MG/ML, 1ML IVPush PRN ×3 (08:12→21:35)
[2018-08-11] MEDS: SUCRALFATE 1 GM/10 ML UDC PO SCH ×4 (08:12→20:21)
[2018-08-11] MEDS: FOLIC ACID 1 MG TABLET PO SCH (08:12)
[2018-08-11] MEDS: MAGNESIUM OXIDE 400 MG TABLET PO SCH ×3 (08:12→20:21)
[2018-08-11] MEDS: AMOXICILLIN/CLAV 875-125MG TABLET PO SCH ×2 (08:13→20:21)
[2018-08-11 08:36] LABS: MEAN CORPUSCULAR HEMOGLOBIN 29.8 pg (27.0-34.8); MEAN CORPUSCULAR HGB CONC 32.4 g/dL (32.4-35.8); MEAN PLATELET VOLUME 7.6 fL (7.4-10.4); PLATELET COUNT 289 x10^3/uL (130-400); RED BLOOD COUNT 2.36 x10^6/uL (3.82-5.3); RED CELL DISTRIBUTION WIDTH 20.3 % (9.6-15.2)
[2018-08-11 08:51] LABS: BASOPHILS # (AUTO) 0.05 x10^3/uL (0-0.1); BASOPHILS % (AUTO) 1 % (0-1); EOSINOPHILS # (AUTO) 0.05 x10^3/uL (0-0.4); EOSINOPHILS % (AUTO) 1 % (1-7); LYMPHOCYTES # (AUTO) 1.19 x10^3/uL (1-3.4); LYMPHOCYTES % (AUTO) 28 % (22-44); MD SCAN; MONOCYTES # (AUTO) 0.38 x10^3/uL (0.2-0.8); MONOCYTES % (AUTO) 9 % (2-9); NEUTROPHILS # (AUTO) 2.63 x10^3/uL (1.8-6.8); NEUTROPHILS % (AUTO) 61 % (42-75)
[2018-08-11] MEDS: NICOTINE 21 MG/24 HR PATCH.TD24 TD SCH (15:44)
[2018-08-11 20:32] LABS: BASOPHILS # (AUTO) 0.08 x10^3/uL (0-0.1); BASOPHILS % (AUTO) 1 % (0-1); EOSINOPHILS # (AUTO) 0.04 x10^3/uL (0-0.4); EOSINOPHILS % (AUTO) 1 % (1-7); LYMPHOCYTES # (AUTO) 1.52 x10^3/uL (1-3.4); LYMPHOCYTES % (AUTO) 25 % (22-44); MD NO; MEAN CORPUSCULAR HEMOGLOBIN 29.7 pg (27.0-34.8); MEAN CORPUSCULAR HGB CONC 32.6 g/dL (32.4-35.8); MEAN PLATELET VOLUME 7.8 fL (7.4-10.4); MONOCYTES # (AUTO) 0.49 x10^3/uL (0.2-0.8); MONOCYTES % (AUTO) 8 % (2-9); NEUTROPHILS # (AUTO) 4.01 x10^3/uL (1.8-6.8); NEUTROPHILS % (AUTO) 65 % (42-75); PLATELET COUNT 316 x10^3/uL (130-400); RED BLOOD COUNT 3.18 x10^6/uL (3.82-5.3); RED CELL DISTRIBUTION WIDTH 20.5 % (9.6-15.2)
[2018-08-12] MEDS: ONDANSETRON ODT 4 MG PO PRN ×3 (01:14→12:07)
[2018-08-12 01:20] VITALS: BP 127/81
[2018-08-12] MEDS: SODIUM CHLORIDE 0.9% 1,000 ML IV SCH (03:49)
[2018-08-12] MEDS: OXYcodone/APAP 5/325MG TABLET PO PRN ×2 (04:42→12:07)
[2018-08-12 05:07] LABS: BASOPHILS # (AUTO) 0.03 x10^3/uL (0-0.1); BASOPHILS % (AUTO) 1 % (0-1); EOSINOPHILS % (AUTO) 2 % (1-7); LYMPHOCYTES % (AUTO) 33 % (22-44); MD NO; MEAN CORPUSCULAR HEMOGLOBIN 29.9 pg (27.0-34.8); MEAN CORPUSCULAR HGB CONC 32.6 g/dL (32.4-35.8); MEAN CORPUSCULAR VOLUME 91.7 fL (80-100); MEAN PLATELET VOLUME 7.6 fL (7.4-10.4); MONOCYTES # (AUTO) 0.37 x10^3/uL (0.2-0.8); MONOCYTES % (AUTO) 8 % (2-9); NEUTROPHILS # (AUTO) 2.63 x10^3/uL (1.8-6.8); NEUTROPHILS % (AUTO) 57 % (42-75); PLATELET COUNT 267 x10^3/uL (130-400); RED BLOOD COUNT 2.85 x10^6/uL (3.82-5.3); RED CELL DISTRIBUTION WIDTH 21.5 % (9.6-15.2)
[2018-08-12] MEDS: PANTOPROZOLE 40MG TABLET PO SCH (06:23)
[2018-08-12] MEDS: MORPHINE SULFATE 4 MG/ML, 1ML IVPush PRN (06:23)
[2018-08-12 08:00] VITALS: BP 153/78
[2018-08-12] MEDS: AMOXICILLIN/CLAV 875-125MG TABLET PO SCH (08:01)
[2018-08-12] MEDS: DOXYCYCLINE 100MG TABLET PO SCH (08:01)
[2018-08-12] MEDS: MAGNESIUM OXIDE 400 MG TABLET PO SCH (08:01)
[2018-08-12] MEDS: THIAMINE 100MG TABLET PO SCH (08:01)
[2018-08-12] MEDS: MULTIVITAMIN 1 TABLET PO SCH (08:02)
[2018-08-12] MEDS: SUCRALFATE 1 GM/10 ML UDC PO SCH ×2 (08:02→11:00)
[2018-08-12] MEDS: FOLIC ACID 1 MG TABLET PO SCH (08:02)
[2018-08-12] MEDS ORDERED: DOXY100T PO (10:56)
[2018-08-12] MEDS ORDERED: PANT40TA5 PO (10:56)
[2018-08-12] MEDS ORDERED: ACET325T14 PO (10:56)
[2018-08-12] MEDS ORDERED: AMOX1TAB12 PO (10:56)
[2018-08-12] MEDS ORDERED: SUCR1ORA5 PO (10:56)
== END 2018-08-12 15:24 | disposition home or self-care (01) | DRG 377 ==
LOC: ED 12:00 → EDIP 13:37 → 3NE 14:43
PROVIDERS: ADMIT Internal Medicine; ATTEND Internal Medicine
PROC: 0DJ08ZZ Inspection of Upper Intestinal Tract, Via Natural or Artificial Opening Endoscopic (ICD-10-PCS; principal; 2018-08-10 09:30)
PROC: 30233N0 Transfusion of Autologous Red Blood Cells into Peripheral Vein, Percutaneous Approach (ICD-10-PCS; 2018-08-11)
DX: K28.4 Chronic or unspecified gastrojejunal ulcer with hemorrhage (principal); E43 Unspecified severe protein-calorie malnutrition; E87.1 Hypo-osmolality and hyponatremia; D62 Acute posthemorrhagic anemia; J44.0 Chronic obstructive pulmonary disease with (acute) lower respiratory infection; F11.20 Opioid dependence, uncomplicated; F10.20 Alcohol dependence, uncomplicated; F17.210 Nicotine dependence, cigarettes, uncomplicated; G89.4 Chronic pain syndrome; I10 Essential (primary) hypertension; J20.9 Acute bronchitis, unspecified; K29.70 Gastritis, unspecified, without bleeding; K44.9 Diaphragmatic hernia without obstruction or gangrene; R73.9 Hyperglycemia, unspecified; T39.395A Adverse effect of other nonsteroidal anti-inflammatory drugs [NSAID], initial encounter; D72.829 Elevated white blood cell count, unspecified; J44.9 Chronic obstructive pulmonary disease, unspecified; F19.10 Other psychoactive substance abuse, uncomplicated; Z87.11 Personal history of peptic ulcer disease; Z90.710 Acquired absence of both cervix and uterus; Z68.21 Body mass index [BMI] 21.0-21.9, adult
CPT/HCPCS: 36415; 36430; 71045; 80053; 80307; 82962; 83690; 83735; 84100; 85014; 85018; 85025; 85610; 85730; 86850; 86900; 86923; 96374; 96375; G0378; J2405; J2704; Q0162; C9113; J3475; J7030; P9016

== ENCOUNTER 2018-09-18 09:07 | Inpatient (IN) | payer MEDICARE, OTHER ==
[~2018-09-18] VITALS: Ht 170.2 cm; Wt 65.9 kg
[~2018-09-18 09:07] MED LIST changes: +ACET325T14 PO; +AMOX1TAB12 PO; +DOXY100T PO; +PANT40TA5 PO; +SUCR1ORA5 PO; +VITA1TAB3 PO
[2018-09-18] MEDS ORDERED: PANTOPRAZOLE 80 MG in SODIUM CHLORIDE 0.9% 100 ML IV SCH (09:29)
[2018-09-18] MEDS ORDERED: PANTOPRAZOLE 40 MG IV IVPush ONE (09:30)
[2018-09-18] MEDS ORDERED: SODIUM CHLORIDE FLUSH 10ML SYR IVF ONE (09:30)
[2018-09-18 09:50] LABS: MD YES
[2018-09-18 10:00] LABS: INTERNATIONAL NORMALIZED RATIO 1.04 (0.93-1.1); PROTHROMBIN TIME 10.9 Seconds (9.6-11.5)
[2018-09-18 10:09] LABS: MEAN CORPUSCULAR HGB CONC 30.2 g/dL (32.4-35.8); MEAN PLATELET VOLUME 9.1 fL (7.4-10.4); PLATELET COUNT 352 x10^3/uL (130-400); RED BLOOD COUNT 2.72 x10^6/uL (3.82-5.3); RED CELL DISTRIBUTION WIDTH 20.3 % (9.6-15.2)
[2018-09-18 10:23] LABS: ANISOCYTOSIS 1+; EOS#(MANUAL) 0.08 x10^3/uL (0.0-0.4); EOS% (MANUAL) 1 % (1-7); HYPOCHROMIA 1+; LYMPH#(MANUAL) 2.84 x10^3/uL (1-3.4); LYMPHS% (MANUAL) 36 % (22-44); MONOS#(MANUAL) 0.71 x10^3/uL (0.3-2.7); MONOS% (MANUAL) 9 % (2-9); POLYCHROMASIA 1+; SEG#(MANUAL) 4.27 x10^3/uL (1.8-6.8); SEGS% (MANUAL) 54 % (42-75)
[2018-09-18 10:24] LABS: <PLATELET ESTIMATE> ADEQUATE; <PLT MORPHOLOGY> NORMAL PLT MORPH
[2018-09-18] MEDS ORDERED: PANTOPRAZOLE 40 MG IV ONE (10:31)
[2018-09-18 10:33] LABS: ALANINE AMINOTRANSFERASE 19 U/L (12-78); ALBUMIN 2.8 g/dL (3.4-5.0); ANION GAP 11 mmol/L (5-15); CALCIUM 8.3 mg/dL (8.5-10.1); CHLORIDE 101 mmol/L (98-107); CREATININE 0.59 mg/dL (0.55-1.02)
[2018-09-18 10:36] LABS: ALKALINE PHOSPHATASE 145 U/L (45-117); BILIRUBIN,TOTAL 0.4 mg/dL (0.2-1.0); TOTAL PROTEIN 6.7 g/dL (6.4-8.2)
--- NOTE | 2018-09-18 10:53 | NUR ---
ONE EJ IV OBTAINED DUE TO LIMITED ACCESS IN PT.
[2018-09-18] MEDS ORDERED: METH10TA2 PO (11:26)
[2018-09-18 12:23] VITALS: BP 133/73
[2018-09-18] MEDS ORDERED: SODIUM CHLORIDE FLUSH 10ML SYR IVF PRN (12:30)
[2018-09-18 12:45] VITALS: BP 111/68
--- NOTE | 2018-09-18 12:52 | NUR ---
spoke with pharmacy. due to limited iv access protonix was stopped to start blood. per pharmacy med will be discarded and new protonix mixed when needed.
[2018-09-18 14:02] VITALS: BP 144/86
[2018-09-18 15:23] VITALS: BP 143/83
[2018-09-18] MEDS: SODIUM CHLORIDE 0.9% 1,000 ML IV SCH (15:37)
[2018-09-18] MEDS: NICOTINE 14MG/24 HR PATCH.TD24 TD SCH (15:37)
[2018-09-18] MEDS: POTASSIUM CHLORIDE 20 MEQ, MAGNESIUM SULFATE 1 GM, MVI ADULT 10 ML, THIAMINE 200 MG, FO... IV SCH (15:38)
[2018-09-18] MEDS: PANTOPRAZOLE 80 MG in SODIUM CHLORIDE 0.9% 100 ML IV SCH (16:38)
[2018-09-18 18:46] VITALS: BP 112/71
[2018-09-18] MEDS: ONDANSETRON 2MG/ML, 2ML IVPush PRN (21:13)
[2018-09-18 21:50] LABS: AMPHETAMINE SCREEN, URINE Negative (Negative); BARBITURATE SCREEN, URINE Negative (Negative); BENZODIAZEPINE SCREEN, URINE Positive (Negative); CANNABINOID SCREEN, URINE Negative (Negative); COCAINE SCREEN, URINE Negative (Negative); METHADONE SCREEN, URINE Negative (Negative); OPIATE SCREEN, URINE Positive (Negative)
[2018-09-19 00:40] VITALS: BP 116/71
[2018-09-19] MEDS: PANTOPRAZOLE 80 MG in SODIUM CHLORIDE 0.9% 100 ML IV SCH ×2 (02:09→12:25)
[2018-09-19] MEDS ORDERED: MORPHINE SULFATE 4 MG/ML, 1ML IVPush ONE (04:30)
[2018-09-19 06:18] LABS: BASOPHILS # (AUTO) 0.05 x10^3/uL (0-0.1); BASOPHILS % (AUTO) 1 % (0-1); EOSINOPHILS # (AUTO) 0.06 x10^3/uL (0-0.4); EOSINOPHILS % (AUTO) 1 % (1-7); LYMPHOCYTES # (AUTO) 0.88 x10^3/uL (1-3.4); LYMPHOCYTES % (AUTO) 14 % (22-44); MD NO; MEAN CORPUSCULAR HEMOGLOBIN 26.7 pg (27.0-34.8); MEAN CORPUSCULAR HGB CONC 30.9 g/dL (32.4-35.8); MEAN CORPUSCULAR VOLUME 86.4 fL (80-100); MEAN PLATELET VOLUME 9.1 fL (7.4-10.4); MONOCYTES # (AUTO) 0.48 x10^3/uL (0.2-0.8); MONOCYTES % (AUTO) 8 % (2-9); NEUTROPHILS % (AUTO) 77 % (42-75); PLATELET COUNT 252 x10^3/uL (130-400); RED BLOOD COUNT 2.91 x10^6/uL (3.82-5.3); RED CELL DISTRIBUTION WIDTH 18.9 % (9.6-15.2)
[2018-09-19 06:19] LABS: ALBUMIN 2.2 g/dL (3.4-5.0); ANION GAP 8 mmol/L (5-15); CALCIUM 7.7 mg/dL (8.5-10.1); CHLORIDE 107 mmol/L (98-107)
[2018-09-19 06:23] LABS: ALANINE AMINOTRANSFERASE 11 U/L (12-78); ALKALINE PHOSPHATASE 120 U/L (45-117); CREATININE 0.65 mg/dL (0.55-1.02); TOTAL PROTEIN 5.4 g/dL (6.4-8.2)
[2018-09-19 07:45] VITALS: BP 143/84
[2018-09-19] MEDS: SODIUM CHLORIDE 0.9% 1,000 ML IV SCH (07:58)
[2018-09-19] MEDS ORDERED: FENTANYL PF 100 MCG/2ML IV PRN (12:30)
[2018-09-19] MEDS ORDERED: LABETALOL 5MG/ML, 20ML IV PRN (12:30)
[2018-09-19] MEDS ORDERED: PROMETHAZINE 25 MG/ML, 1ML IV PRN (12:30)
[2018-09-19] MEDS ORDERED: ONDANSETRON 2MG/ML, 2ML IV PRN (12:30)
[2018-09-19] MEDS ORDERED: OXYcodone 5 MG/5 ML ORAL.SOL UDC PO PRN (12:30)
[2018-09-19] MEDS ORDERED: hydrALAzine 20 MG/ML, 1ML IV PRN (12:30)
[2018-09-19] MEDS ORDERED: HYDROmorphone 2 MG/ML, 1ML IVPush PRN (12:30)
[2018-09-19 13:46] VITALS: BP 122/73
[2018-09-19 14:17] VITALS: BP 122/71
[2018-09-19] MEDS ORDERED: MIDAZOLAM 1 MG/ML, 2ML ONE (14:31)
[2018-09-19] MEDS ORDERED: FENTANYL PF 100 MCG/2ML ONE ×2 (14:31→16:36)
[2018-09-19 14:33] VITALS: BP 135/77
[2018-09-19] MEDS: NICOTINE 14MG/24 HR PATCH.TD24 TD SCH (15:22)
[2018-09-19] MEDS ORDERED: PROPOFOL 10 MG/ML, 20ML ONE (16:24)
[2018-09-19] MEDS ORDERED: SUCRALFATE 1 GM/10 ML UDC ONE (17:12)
[2018-09-19] MEDS: SUCRALFATE 1 GM/10 ML UDC PO SCH ×2 (17:16→21:42)
[2018-09-19] MEDS: POTASSIUM CHLORIDE 20 MEQ, MAGNESIUM SULFATE 1 GM, MVI ADULT 10 ML, THIAMINE 200 MG, FO... IV SCH (18:08)
[2018-09-19 19:14] VITALS: BP 147/81
[2018-09-19] MEDS: ONDANSETRON 2MG/ML, 2ML IVPush PRN (22:34)
[2018-09-20] MEDS: PANTOPRAZOLE 80 MG in SODIUM CHLORIDE 0.9% 100 ML IV SCH ×2 (00:05→09:30)
[2018-09-20 00:45] VITALS: BP 118/67
[2018-09-20] MEDS: ACETAMINOPHEN 325 MG TABLET PO PRN ×2 (02:15→12:01)
[2018-09-20] MEDS: ONDANSETRON 2MG/ML, 2ML IVPush PRN (04:40)
[2018-09-20 06:19] LABS: BASOPHILS # (AUTO) 0.01 x10^3/uL (0-0.1); BASOPHILS % (AUTO) 0 % (0-1); EOSINOPHILS # (AUTO) 0.07 x10^3/uL (0-0.4); EOSINOPHILS % (AUTO) 1 % (1-7); LYMPHOCYTES # (AUTO) 0.99 x10^3/uL (1-3.4); LYMPHOCYTES % (AUTO) 16 % (22-44); MD NO; MEAN CORPUSCULAR HEMOGLOBIN 26.6 pg (27.0-34.8); MEAN CORPUSCULAR HGB CONC 30.8 g/dL (32.4-35.8); MEAN CORPUSCULAR VOLUME 86.2 fL (80-100); MONOCYTES % (AUTO) 8 % (2-9); NEUTROPHILS # (AUTO) 4.69 x10^3/uL (1.8-6.8); NEUTROPHILS % (AUTO) 75 % (42-75); PLATELET COUNT 229 x10^3/uL (130-400); RED BLOOD COUNT 3.42 x10^6/uL (3.82-5.3); RED CELL DISTRIBUTION WIDTH 17.7 % (9.6-15.2)
[2018-09-20 06:23] LABS: ALBUMIN 2.3 g/dL (3.4-5.0); ANION GAP 7 mmol/L (5-15); CALCIUM 7.9 mg/dL (8.5-10.1); CHLORIDE 106 mmol/L (98-107)
[2018-09-20 06:27] LABS: ALANINE AMINOTRANSFERASE 12 U/L (12-78); ALKALINE PHOSPHATASE 120 U/L (45-117); BILIRUBIN,TOTAL 1.5 mg/dL (0.2-1.0); CREATININE 0.54 mg/dL (0.55-1.02); TOTAL PROTEIN 5.5 g/dL (6.4-8.2)
[2018-09-20 07:15] VITALS: BP 146/85
[2018-09-20] MEDS ORDERED: POTASSIUM CHLORIDE 20 MEQ TAB.ER.PRT PO ONE (08:00)
[2018-09-20] MEDS: SUCRALFATE 1 GM/10 ML UDC PO SCH ×2 (08:17→12:01)
[2018-09-20] MEDS ORDERED: SUCR1ORA5 PO (12:00)
[2018-09-20] MEDS ORDERED: NICO-486 TD (12:00)
[2018-09-20] MEDS ORDERED: PANT40TA5 PO (12:00)
== END 2018-09-20 13:55 | disposition home or self-care (01) | DRG 377 ==
LOC: ED 11:36 → EDIP 12:22 → 4EST 13:37 → DCLOUNGE 09-20 13:46
PROVIDERS: ADMIT Internal Medicine; ATTEND Internal Medicine
PROC: 30233N1 Transfusion of Nonautologous Red Blood Cells into Peripheral Vein, Percutaneous Approach (ICD-10-PCS; principal; 2018-09-18)
PROC: 02HV33Z Insertion of Infusion Device into Superior Vena Cava, Percutaneous Approach (ICD-10-PCS; 2018-09-18)
PROC: B548ZZA Ultrasonography of Superior Vena Cava, Guidance (ICD-10-PCS; 2018-09-18)
PROC: B5181ZA Fluoroscopy of Superior Vena Cava using Low Osmolar Contrast, Guidance (ICD-10-PCS; 2018-09-18)
PROC: 0DJ08ZZ Inspection of Upper Intestinal Tract, Via Natural or Artificial Opening Endoscopic (ICD-10-PCS; 2018-09-19)
DX: K28.4 Chronic or unspecified gastrojejunal ulcer with hemorrhage (principal); E43 Unspecified severe protein-calorie malnutrition; J96.10 Chronic respiratory failure, unspecified whether with hypoxia or hypercapnia; E87.1 Hypo-osmolality and hyponatremia; D62 Acute posthemorrhagic anemia; K25.4 Chronic or unspecified gastric ulcer with hemorrhage; E87.6 Hypokalemia; F17.200 Nicotine dependence, unspecified, uncomplicated; G40.909 Epilepsy, unspecified, not intractable, without status epilepticus; I10 Essential (primary) hypertension; Z53.21 Procedure and treatment not carried out due to patient leaving prior to being seen by health care provider; K44.9 Diaphragmatic hernia without obstruction or gangrene; Z79.899 Other long term (current) drug therapy; Z87.11 Personal history of peptic ulcer disease; Z90.710 Acquired absence of both cervix and uterus; Z91.19 Patient's noncompliance with other medical treatment and regimen
CPT/HCPCS: 36415; 36430; 36573; 71045; 74021; 80053; 80307; 82728; 83540; 83550; 83690; 83735; 84100; 85014; 85018; 85025; 85610; 85730; 86850; 86900; 86923; 93005; 96365; 96366; G0378; J2250; J2405; J2704; J3010; J3411; J3475; J3480; C1751; C9113; J2270; J7030; P9016

== ENCOUNTER 2018-10-27 01:31 | Emergency (ER) | payer OTHER ==
[~2018-10-27] VITALS: Ht 170.2 cm; Wt 60.4 kg
[~2018-10-27 01:31] MED LIST changes: +DULO30CA2 PO; +LISI-167 PO; +NICO-486 TD
[2018-10-27 01:50] VITALS: BP 147/88
--- NOTE | 2018-10-27 01:51 | NUR ---
FIRST CONTACT WITH PT. PT STATES THAT SHE THINKS SHE'S DETOXING. PT SAYS THAT SHE USUALLY HAS 4 MIKES HARD LEMONADES A DAY. LAST DRINK 1830 LAST NIGHT PER PT. PT'S AOX4. RESPS EVEN AND UNLABORED. ALL MONITORS IN PLACE. CALL LIGHT WITHIN REACH. AWAITING ORDERES.
[2018-10-27] MEDS ORDERED: PROMETHAZINE 25MG TABLET PO ONE (02:00)
[2018-10-27] MEDS ORDERED: CHLORDIAZEPOXIDE 10 MG CAPSULE PO ONE (02:00)
[2018-10-27] MEDS ORDERED: PROMETHAZINE 25MG TABLET ONE (02:04)
[2018-10-27] MEDS ORDERED: CHLORDIAZEPOXIDE 10 MG CAPSULE ONE (02:04)
--- NOTE | 2018-10-27 02:08 | NUR ---
PT MEDICATED PER EMAR. PT TOLERATED WELL.
[2018-10-27] MEDS ORDERED: PROMETHAZINE 25 MG/ML, 1ML IM ONE (02:30)
== END 2018-10-27 03:21 | disposition home or self-care (01) ==
LOC: ED 02:10
DX: F10.220 Alcohol dependence with intoxication, uncomplicated (principal); Z72.9 Problem related to lifestyle, unspecified; G40.909 Epilepsy, unspecified, not intractable, without status epilepticus; F17.200 Nicotine dependence, unspecified, uncomplicated
CPT/HCPCS: 99283; Q0169

== ENCOUNTER 2018-10-29 09:37 | Inpatient (IN) | payer OTHER ==
[~2018-10-29] VITALS: Ht 160 cm; Wt 62.5 kg
--- NOTE | 2018-10-29 09:56 | NUR ---
PT SAYING "Twice" and "Yes" to answer all questions asked. Pt will not follow commands so unable to assess extremity strengths. Pt moving all extremities. Face symetrical. No slurred speech noted. Pt last seen normal for patient last night by daughter in law.
[2018-10-29] MEDS ORDERED: THIAMINE 100 MG in DEXTROSE 5% 50 ML IVPB ONE (10:30)
[2018-10-29] MEDS ORDERED: SODIUM CHLORIDE FLUSH 10ML SYR IVF ONE (10:30)
--- NOTE | 2018-10-29 10:33 | NUR ---
UNABLE TO OBTAIN IV ACCESS. LAB ATTEMPTING TO DRAW BLOOD. PT CONTINUES TO SAY THINGS THAT DO NOT MAKE SENSE. BUT PT DID SAY SOMETHING ABOUT HAVING ANIMALS AND THEN DAUGHTER REMEMBERED THAT SHE NEEDED TO GO TO [facility] TO GET PT'S DOG.
--- NOTE | 2018-10-29 10:46 | NUR ---
TO CT VIA [facility]
[2018-10-29 10:49] LABS: MD YES; MEAN CORPUSCULAR HEMOGLOBIN 27.3 pg (27.0-34.8); MEAN CORPUSCULAR HGB CONC 31.8 g/dL (32.4-35.8); MEAN CORPUSCULAR VOLUME 85.9 fL (80-100); PLATELET COUNT 307 x10^3/uL (130-400); RED BLOOD COUNT 4.27 x10^6/uL (3.82-5.3); RED CELL DISTRIBUTION WIDTH 22.8 % (9.6-15.2)
[2018-10-29 10:54] LABS: INTERNATIONAL NORMALIZED RATIO 1.01 (0.93-1.1); PROTHROMBIN TIME 10.6 Seconds (9.6-11.5)
[2018-10-29 10:57] LABS: ALANINE AMINOTRANSFERASE 28 U/L (12-78); ALBUMIN 3.2 g/dL (3.4-5.0); ANION GAP 11 mmol/L (5-15); CALCIUM 8.7 mg/dL (8.5-10.1); CHLORIDE 95 mmol/L (98-107); CREATININE 0.66 mg/dL (0.55-1.02)
[2018-10-29 10:58] LABS: ALKALINE PHOSPHATASE 100 U/L (45-117); BILIRUBIN,TOTAL 0.7 mg/dL (0.2-1.0); TOTAL PROTEIN 7.4 g/dL (6.4-8.2)
[2018-10-29 11:04] LABS: SALICYLATE LEVEL < 1.7 mg/dL (2.8-20.0)
[2018-10-29 11:10] LABS: LYMPH#(MANUAL) 1.38 x10^3/uL (1-3.4); LYMPHS% (MANUAL) 20 % (22-44); MONOS#(MANUAL) 0.62 x10^3/uL (0.3-2.7); MONOS% (MANUAL) 9 % (2-9); SEGS% (MANUAL) 71 % (42-75)
[2018-10-29 11:11] LABS: <PLATELET ESTIMATE> ADEQUATE; <PLT MORPHOLOGY> NORMAL PLT MORPH; ANISOCYTOSIS 1+
--- NOTE | 2018-10-29 11:24 | NUR ---
PT NOW ALERT TO NAME AND TALKING MORE. STRAIGHT CATH URINE OBTAINED. PT NOW RESTING WITH EYES CLOSED
[2018-10-29] MEDS ORDERED: NS + 40MEQ KCL 1,000 ML IV ONE ×2 (11:51→12:09)
[2018-10-29 11:59] LABS: MICROSCOPIC INDICATED
[2018-10-29] MEDS ORDERED: POTASSIUM CHLORIDE 20 MEQ TAB.ER.PRT PO ONE (12:00)
[2018-10-29 12:05] LABS: AMPHETAMINE SCREEN, URINE Negative (Negative); BARBITURATE SCREEN, URINE Negative (Negative); BENZODIAZEPINE SCREEN, URINE Positive (Negative); CANNABINOID SCREEN, URINE Negative (Negative); COCAINE SCREEN, URINE Negative (Negative); METHADONE SCREEN, URINE Negative (Negative); OPIATE SCREEN, URINE Positive (Negative)
[2018-10-29] MEDS ORDERED: POTASSIUM CHLORIDE 20 MEQ TAB.ER.PRT ONE (12:08)
--- NOTE | 2018-10-29 12:15 | NUR ---
PT WILL NOT SWALLOW PO POTASSIUM, SO UNABLE TO GIVE IT TO HER. PT DROWSY
[2018-10-29] MEDS: NS + 20MEQ KCL 1,000 ML IV SCH (12:26)
--- NOTE | 2018-10-29 12:26 | NUR ---
HOSPITALIST AT BEDSIDE. MADE AWARE PT NOT ALERT ENOUGH TO SWALLOW POTASSIUM PO. HOSPITALIST STATES OK TO START ANIBITIOTICS WITHOUT BLOOD CULTURES.
[2018-10-29] MEDS ORDERED: FOLIC ACID 5 MG/ML IM ONE (12:30)
[2018-10-29] MEDS ORDERED: KETOROLAC 30 MG/1 ML IV PRN (12:30)
[2018-10-29] MEDS ORDERED: morphine SULFATE 10 MG/ML, 1ML IVPush PRN (12:30)
[2018-10-29] MEDS ORDERED: LORazepam 1MG TABLET PO PRN ×3 (12:30)
[2018-10-29] MEDS ORDERED: CEFTRIAXONE PMX 1GM/50ML 50 ML IVPB ONE (12:30)
[2018-10-29] MEDS ORDERED: ENOXAPARIN 40 MG/0.4 ML SQ SCH (12:30)
[2018-10-29] MEDS ORDERED: LORazepam 2 MG/ML, 1ML IV PRN ×3 (12:30)
[2018-10-29] MEDS ORDERED: POTASSIUM CHLORIDE 40 MEQ in SODIUM CHLORIDE 0.9% 500 ML IV ONE (12:30)
[2018-10-29 12:35] LABS: CULTURE INDICATED? YES
[2018-10-29] MEDS ORDERED: CEFTRIAXONE PMX 1GM/50ML 50 ML ONE (12:45)
--- NOTE | 2018-10-29 13:49 | NUR ---
REPORT TO ANDREW SMITH. PT TO BE TRANSPORTED TO FLOOR
[2018-10-29 14:20] VITALS: BP 132/84
[2018-10-29 16:16] VITALS: BP 98/64
[2018-10-29 18:29] LABS: ANION GAP 11 mmol/L (5-15); CALCIUM 8.7 mg/dL (8.5-10.1); CHLORIDE 102 mmol/L (98-107); CREATININE 0.64 mg/dL (0.55-1.02)
[2018-10-29 20:22] VITALS: BP 128/73
[2018-10-29] MEDS: DULOXETINE 30 MG CAPSULE.DR PO SCH (20:46)
[2018-10-30 02:24] VITALS: BP 119/72
[2018-10-30 05:27] LABS: MEAN CORPUSCULAR HGB CONC 31.7 g/dL (32.4-35.8); MEAN CORPUSCULAR VOLUME 85.3 fL (80-100); MEAN PLATELET VOLUME 8.3 fL (7.4-10.4); PLATELET COUNT 289 x10^3/uL (130-400); RED BLOOD COUNT 3.95 x10^6/uL (3.82-5.3); RED CELL DISTRIBUTION WIDTH 23.1 % (9.6-15.2)
[2018-10-30 05:34] LABS: ALBUMIN 2.6 g/dL (3.4-5.0); ANION GAP 9 mmol/L (5-15); CALCIUM 8.4 mg/dL (8.5-10.1); CHLORIDE 108 mmol/L (98-107)
[2018-10-30 05:38] LABS: ALANINE AMINOTRANSFERASE 27 U/L (12-78); ALKALINE PHOSPHATASE 86 U/L (45-117); BILIRUBIN,TOTAL 0.6 mg/dL (0.2-1.0); CREATININE 0.55 mg/dL (0.55-1.02); TOTAL PROTEIN 6.3 g/dL (6.4-8.2)
[2018-10-30 05:56] LABS: BASOPHILS # (AUTO) 0.02 x10^3/uL (0-0.1); BASOPHILS % (AUTO) 0 % (0-1); EOSINOPHILS % (AUTO) 2 % (1-7); LYMPHOCYTES # (AUTO) 1.63 x10^3/uL (1-3.4); LYMPHOCYTES % (AUTO) 28 % (22-44); MD SCAN; MONOCYTES % (AUTO) 10 % (2-9); NEUTROPHILS # (AUTO) 3.45 x10^3/uL (1.8-6.8); NEUTROPHILS % (AUTO) 59 % (42-75)
[2018-10-30 07:40] VITALS: BP 112/75
[2018-10-30] MEDS: MULTIVITAMINS/MINERALS TABLET PO SCH (10:16)
[2018-10-30] MEDS: DULOXETINE 30 MG CAPSULE.DR PO SCH ×2 (10:17→20:17)
[2018-10-30] MEDS: LISINOPRIL 10 MG TABLET PO SCH (10:17)
[2018-10-30] MEDS: CEFTRIAXONE PMX 1GM/50ML 50 ML IV SCH (10:46)
[2018-10-30] MEDS: NS + 20MEQ KCL 1,000 ML IV SCH (13:33)
[2018-10-30 16:34] VITALS: BP 152/94
[2018-10-30 18:57] VITALS: BP 138/88
[2018-10-31 01:55] VITALS: BP 140/78
[2018-10-31] MEDS: NS + 20MEQ KCL 1,000 ML IV SCH (02:51)
[2018-10-31 05:04] LABS: ANION GAP 8 mmol/L (5-15); CALCIUM 7.9 mg/dL (8.5-10.1); CHLORIDE 104 mmol/L (98-107); CREATININE 0.51 mg/dL (0.55-1.02)
[2018-10-31 05:18] LABS: MEAN CORPUSCULAR HEMOGLOBIN 27.9 pg (27.0-34.8); MEAN CORPUSCULAR VOLUME 87.2 fL (80-100); MEAN PLATELET VOLUME 8.7 fL (7.4-10.4); PLATELET COUNT 288 x10^3/uL (130-400); RED BLOOD COUNT 3.75 x10^6/uL (3.82-5.3); RED CELL DISTRIBUTION WIDTH 22.2 % (9.6-15.2)
[2018-10-31 05:54] LABS: BASOPHILS # (AUTO) 0.05 x10^3/uL (0-0.1); BASOPHILS % (AUTO) 1 % (0-1); EOSINOPHILS # (AUTO) 0.09 x10^3/uL (0-0.4); EOSINOPHILS % (AUTO) 2 % (1-7); LYMPHOCYTES # (AUTO) 1.75 x10^3/uL (1-3.4); LYMPHOCYTES % (AUTO) 28 % (22-44); MD SCAN; MONOCYTES # (AUTO) 0.44 x10^3/uL (0.2-0.8); MONOCYTES % (AUTO) 7 % (2-9); NEUTROPHILS # (AUTO) 3.89 x10^3/uL (1.8-6.8); NEUTROPHILS % (AUTO) 63 % (42-75)
[2018-10-31 08:35] VITALS: BP 156/91
[2018-10-31] MEDS: DULOXETINE 30 MG CAPSULE.DR PO SCH ×2 (09:21→20:10)
[2018-10-31] MEDS: MULTIVITAMINS/MINERALS TABLET PO SCH (09:21)
[2018-10-31] MEDS: LISINOPRIL 10 MG TABLET PO SCH (09:21)
[2018-10-31] MEDS: CEFTRIAXONE PMX 1GM/50ML 50 ML IV SCH (09:21)
[2018-10-31] MEDS: THIAMINE 100 MG in DEXTROSE 5% 50 ML IVPB SCH (10:20)
[2018-10-31 12:45] VITALS: BP 155/88
[2018-10-31] MEDS: ACETAMINOPHEN 325 MG TABLET PO PRN (15:19)
[2018-10-31 19:59] VITALS: BP 167/109
[2018-10-31] MEDS: hydrALAzine 20 MG/ML, 1ML IVPush PRN (20:10)
[2018-10-31] MEDS: LORazepam 2 MG/ML, 1ML IV PRN (20:32)
[2018-10-31 20:35] VITALS: BP 143/86
[2018-11-01] MEDS ORDERED: LORazepam 2 MG/ML, 1ML IVPush PRN (00:30)
[2018-11-01] MEDS ORDERED: CHLORDIAZEPOXIDE 25 MG CAPSULE PO PRN (01:00)
[2018-11-01 01:15] VITALS: BP 153/89
[2018-11-01] MEDS: ACETAMINOPHEN 325 MG TABLET PO PRN (01:25)
[2018-11-01] MEDS: LORazepam 2 MG/ML, 1ML IV PRN ×2 (01:25→08:57)
[2018-11-01 06:29] LABS: MEAN CORPUSCULAR HEMOGLOBIN 27.8 pg (27.0-34.8); MEAN CORPUSCULAR VOLUME 86.8 fL (80-100); MEAN PLATELET VOLUME 8.4 fL (7.4-10.4); PLATELET COUNT 308 x10^3/uL (130-400); RED BLOOD COUNT 4.22 x10^6/uL (3.82-5.3); RED CELL DISTRIBUTION WIDTH 23.5 % (9.6-15.2)
[2018-11-01 06:34] LABS: ANION GAP 9 mmol/L (5-15); CALCIUM 8.3 mg/dL (8.5-10.1); CHLORIDE 97 mmol/L (98-107); CREATININE 0.41 mg/dL (0.55-1.02)
[2018-11-01 06:50] LABS: BASOPHILS # (AUTO) 0.01 x10^3/uL (0-0.1); BASOPHILS % (AUTO) 0 % (0-1); EOSINOPHILS # (AUTO) 0.15 x10^3/uL (0-0.4); EOSINOPHILS % (AUTO) 2 % (1-7); LYMPHOCYTES # (AUTO) 1.58 x10^3/uL (1-3.4); LYMPHOCYTES % (AUTO) 21 % (22-44); MD SCAN; MONOCYTES # (AUTO) 0.56 x10^3/uL (0.2-0.8); MONOCYTES % (AUTO) 8 % (2-9); NEUTROPHILS # (AUTO) 5.16 x10^3/uL (1.8-6.8); NEUTROPHILS % (AUTO) 69 % (42-75)
[2018-11-01 08:13] VITALS: BP 119/73
[2018-11-01] MEDS: LISINOPRIL 10 MG TABLET PO SCH (08:33)
[2018-11-01] MEDS: DULOXETINE 30 MG CAPSULE.DR PO SCH ×2 (08:33→20:36)
[2018-11-01] MEDS: MULTIVITAMINS/MINERALS TABLET PO SCH (08:33)
[2018-11-01] MEDS: THIAMINE 100 MG in DEXTROSE 5% 50 ML IVPB SCH (08:59)
[2018-11-01] MEDS: CEFTRIAXONE PMX 1GM/50ML 50 ML IV SCH (10:16)
[2018-11-01] MEDS ORDERED: POTASSIUM CHLORIDE 20 MEQ TAB.ER.PRT PO ONE (10:30)
[2018-11-01] MEDS: NS + 20MEQ KCL 1,000 ML IV SCH (12:04)
[2018-11-01 12:54] VITALS: BP 133/87
[2018-11-01 13:22] LABS: CLOSTRIDIUM DIFFICILE ANTIGEN NEGATIVE; CLOSTRIDIUM DIFFICILE TOXIN NEGATIVE (Negative)
[2018-11-01] MEDS ORDERED: MAGNESIUM SULFATE PMX 2GM/50ML 50 ML IV ONE (14:00)
[2018-11-01 19:16] VITALS: BP 138/84
[2018-11-02 00:26] VITALS: BP 132/84
[2018-11-02] MEDS: NS + 20MEQ KCL 1,000 ML IV SCH ×2 (00:47→14:57)
[2018-11-02] MEDS: LORazepam 2 MG/ML, 1ML IV PRN (00:47)
[2018-11-02 06:28] LABS: MEAN CORPUSCULAR HEMOGLOBIN 27.9 pg (27.0-34.8); MEAN CORPUSCULAR HGB CONC 31.9 g/dL (32.4-35.8); MEAN CORPUSCULAR VOLUME 87.4 fL (80-100); MEAN PLATELET VOLUME 8.7 fL (7.4-10.4); PLATELET COUNT 301 x10^3/uL (130-400); RED BLOOD COUNT 4.19 x10^6/uL (3.82-5.3); RED CELL DISTRIBUTION WIDTH 23.4 % (9.6-15.2)
[2018-11-02 06:37] LABS: ANION GAP 9 mmol/L (5-15); CALCIUM 8.6 mg/dL (8.5-10.1); CHLORIDE 105 mmol/L (98-107)
[2018-11-02 07:08] LABS: BASOPHILS # (AUTO) 0.04 x10^3/uL (0-0.1); BASOPHILS % (AUTO) 1 % (0-1); EOSINOPHILS # (AUTO) 0.09 x10^3/uL (0-0.4); EOSINOPHILS % (AUTO) 1 % (1-7); LYMPHOCYTES # (AUTO) 2.13 x10^3/uL (1-3.4); LYMPHOCYTES % (AUTO) 31 % (22-44); MD SCAN; MONOCYTES # (AUTO) 0.24 x10^3/uL (0.2-0.8); MONOCYTES % (AUTO) 4 % (2-9); NEUTROPHILS # (AUTO) 4.41 x10^3/uL (1.8-6.8); NEUTROPHILS % (AUTO) 64 % (42-75)
[2018-11-02 07:24] VITALS: BP 156/88
[2018-11-02] MEDS: THIAMINE 100 MG in DEXTROSE 5% 50 ML IVPB SCH (09:49)
[2018-11-02] MEDS: DULOXETINE 30 MG CAPSULE.DR PO SCH ×2 (09:50→21:31)
[2018-11-02] MEDS: MULTIVITAMINS/MINERALS TABLET PO SCH (09:50)
[2018-11-02] MEDS: LISINOPRIL 10 MG TABLET PO SCH (09:50)
[2018-11-02 12:37] VITALS: BP 148/84
[2018-11-02] MEDS: CEFTRIAXONE PMX 1GM/50ML 50 ML IV SCH (12:39)
[2018-11-02 13:27] LABS: OSMOLALITY,URINE 434 mOsm/kg (500-850)
[2018-11-02] MEDS: IBUPROFEN 600 MG TABLET PO PRN (18:10)
[2018-11-02 19:51] VITALS: BP 158/90
[2018-11-03 00:59] VITALS: BP 165/86
[2018-11-03] MEDS: NS + 20MEQ KCL 1,000 ML IV SCH ×2 (05:29→20:15)
[2018-11-03 06:54] VITALS: BP 151/92
[2018-11-03 09:12] LABS: ANION GAP 9 mmol/L (5-15); CALCIUM 8.3 mg/dL (8.5-10.1); CHLORIDE 101 mmol/L (98-107); CREATININE 0.42 mg/dL (0.55-1.02)
[2018-11-03 09:15] LABS: MEAN CORPUSCULAR HGB CONC 31.4 g/dL (32.4-35.8); MEAN PLATELET VOLUME 8.8 fL (7.4-10.4); PLATELET COUNT 278 x10^3/uL (130-400); RED BLOOD COUNT 4.11 x10^6/uL (3.82-5.3); RED CELL DISTRIBUTION WIDTH 23.1 % (9.6-15.2)
[2018-11-03 09:29] LABS: BASOPHILS # (AUTO) 0.03 x10^3/uL (0-0.1); BASOPHILS % (AUTO) 1 % (0-1); EOSINOPHILS # (AUTO) 0.15 x10^3/uL (0-0.4); EOSINOPHILS % (AUTO) 3 % (1-7); LYMPHOCYTES # (AUTO) 1.66 x10^3/uL (1-3.4); LYMPHOCYTES % (AUTO) 30 % (22-44); MD SCAN; MONOCYTES # (AUTO) 0.54 x10^3/uL (0.2-0.8); MONOCYTES % (AUTO) 10 % (2-9); NEUTROPHILS # (AUTO) 3.21 x10^3/uL (1.8-6.8); NEUTROPHILS % (AUTO) 57 % (42-75)
[2018-11-03] MEDS: DULOXETINE 30 MG CAPSULE.DR PO SCH ×2 (10:02→20:16)
[2018-11-03] MEDS: THIAMINE 100 MG in DEXTROSE 5% 50 ML IVPB SCH (10:02)
[2018-11-03] MEDS: LISINOPRIL 10 MG TABLET PO SCH (10:03)
[2018-11-03] MEDS: MULTIVITAMINS/MINERALS TABLET PO SCH (10:03)
[2018-11-03] MEDS: CEFTRIAXONE PMX 1GM/50ML 50 ML IV SCH (11:06)
[2018-11-03 12:24] VITALS: BP 152/89
[2018-11-03] MEDS: ACETAMINOPHEN 325 MG TABLET PO PRN ×2 (13:10→20:15)
[2018-11-03 19:32] VITALS: BP 163/94
[2018-11-03] MEDS: LEVETIRACETAM 500 MG TABLET PO SCH (20:16)
[2018-11-03] MEDS: LORazepam 0.5MG TABLET PO PRN (20:16)
[2018-11-04 00:27] VITALS: BP 165/86
[2018-11-04 07:23] VITALS: BP 156/88
[2018-11-04 08:55] LABS: ANION GAP 8 mmol/L (5-15); CALCIUM 8.3 mg/dL (8.5-10.1); CHLORIDE 95 mmol/L (98-107); CREATININE 0.46 mg/dL (0.55-1.02)
[2018-11-04 08:57] LABS: BASOPHILS # (AUTO) 0.05 x10^3/uL (0-0.1); BASOPHILS % (AUTO) 1 % (0-1); EOSINOPHILS % (AUTO) 2 % (1-7); LYMPHOCYTES # (AUTO) 1.61 x10^3/uL (1-3.4); LYMPHOCYTES % (AUTO) 33 % (22-44); MD NO; MEAN CORPUSCULAR HGB CONC 31.5 g/dL (32.4-35.8); MEAN CORPUSCULAR VOLUME 85.7 fL (80-100); MEAN PLATELET VOLUME 8.9 fL (7.4-10.4); MONOCYTES # (AUTO) 0.43 x10^3/uL (0.2-0.8); MONOCYTES % (AUTO) 9 % (2-9); NEUTROPHILS # (AUTO) 2.67 x10^3/uL (1.8-6.8); NEUTROPHILS % (AUTO) 55 % (42-75); PLATELET COUNT 268 x10^3/uL (130-400); RED BLOOD COUNT 4.14 x10^6/uL (3.82-5.3); RED CELL DISTRIBUTION WIDTH 22.6 % (9.6-15.2)
[2018-11-04] MEDS: DULOXETINE 30 MG CAPSULE.DR PO SCH ×2 (09:24→20:29)
[2018-11-04] MEDS: THIAMINE 100 MG in DEXTROSE 5% 50 ML IVPB SCH (09:24)
[2018-11-04] MEDS: MULTIVITAMINS/MINERALS TABLET PO SCH (09:24)
[2018-11-04] MEDS: LISINOPRIL 10 MG TABLET PO SCH (09:24)
[2018-11-04] MEDS: LEVETIRACETAM 500 MG TABLET PO SCH ×2 (09:24→20:29)
[2018-11-04] MEDS: ACETAMINOPHEN 325 MG TABLET PO PRN ×2 (09:31→17:48)
[2018-11-04] MEDS: LORazepam 0.5MG TABLET PO PRN (09:31)
[2018-11-04] MEDS: CEFTRIAXONE PMX 1GM/50ML 50 ML IV SCH (10:14)
[2018-11-04 12:15] VITALS: BP 155/96
[2018-11-04] MEDS: NS + 20MEQ KCL 1,000 ML IV SCH (14:20)
[2018-11-04 20:01] VITALS: BP 149/78
[2018-11-04] MEDS: LORazepam 1MG TABLET PO PRN (20:29)
[2018-11-05 02:37] VITALS: BP 138/87
[2018-11-05] MEDS: LORazepam 1MG TABLET PO PRN (02:48)
[2018-11-05] MEDS: NS + 20MEQ KCL 1,000 ML IV SCH ×2 (03:53→17:00)
[2018-11-05 05:09] LABS: MEAN CORPUSCULAR HEMOGLOBIN 28.2 pg (27.0-34.8); MEAN CORPUSCULAR HGB CONC 32.3 g/dL (32.4-35.8); MEAN CORPUSCULAR VOLUME 87.5 fL (80-100); MEAN PLATELET VOLUME 9.3 fL (7.4-10.4); PLATELET COUNT 309 x10^3/uL (130-400); RED BLOOD COUNT 3.66 x10^6/uL (3.82-5.3)
[2018-11-05 05:10] LABS: CHLORIDE 101 mmol/L (98-107)
[2018-11-05 05:18] LABS: ANION GAP 9 mmol/L (5-15); CREATININE 0.44 mg/dL (0.55-1.02)
[2018-11-05 05:44] LABS: BASOPHILS # (AUTO) 0.06 x10^3/uL (0-0.1); BASOPHILS % (AUTO) 1 % (0-1); EOSINOPHILS # (AUTO) 0.11 x10^3/uL (0-0.4); EOSINOPHILS % (AUTO) 2 % (1-7); LYMPHOCYTES # (AUTO) 1.52 x10^3/uL (1-3.4); LYMPHOCYTES % (AUTO) 27 % (22-44); MD SCAN; MONOCYTES # (AUTO) 0.58 x10^3/uL (0.2-0.8); MONOCYTES % (AUTO) 10 % (2-9); NEUTROPHILS # (AUTO) 3.35 x10^3/uL (1.8-6.8); NEUTROPHILS % (AUTO) 60 % (42-75)
[2018-11-05 06:51] VITALS: BP 162/96
[2018-11-05] MEDS: DULOXETINE 30 MG CAPSULE.DR PO SCH ×2 (09:00→20:34)
[2018-11-05] MEDS: LEVETIRACETAM 500 MG TABLET PO SCH ×2 (09:42→20:34)
[2018-11-05] MEDS: CEFTRIAXONE PMX 1GM/50ML 50 ML IV SCH (09:42)
[2018-11-05] MEDS: MULTIVITAMINS/MINERALS TABLET PO SCH (09:42)
[2018-11-05] MEDS: LISINOPRIL 10 MG TABLET PO SCH (09:42)
[2018-11-05 15:18] VITALS: BP 132/86
[2018-11-05 18:54] VITALS: BP 155/90
[2018-11-05] MEDS: LORazepam 0.5MG TABLET PO PRN (20:34)
[2018-11-06 01:21] VITALS: BP 157/81
[2018-11-06] MEDS: LORazepam 0.5MG TABLET PO PRN ×2 (01:52→23:17)
[2018-11-06 05:16] LABS: ANION GAP 9 mmol/L (5-15); CALCIUM 8.4 mg/dL (8.5-10.1); CHLORIDE 100 mmol/L (98-107)
[2018-11-06 05:18] LABS: CREATININE 0.48 mg/dL (0.55-1.02)
[2018-11-06 05:28] LABS: MEAN CORPUSCULAR HGB CONC 31.3 g/dL (32.4-35.8); MEAN CORPUSCULAR VOLUME 86.3 fL (80-100); PLATELET COUNT 278 x10^3/uL (130-400); RED BLOOD COUNT 3.76 x10^6/uL (3.82-5.3); RED CELL DISTRIBUTION WIDTH 22.6 % (9.6-15.2)
[2018-11-06 06:12] LABS: MD SCAN
[2018-11-06 06:13] LABS: BASOPHILS # (AUTO) 0.08 x10^3/uL (0-0.1); BASOPHILS % (AUTO) 1 % (0-1); EOSINOPHILS % (AUTO) 2 % (1-7); LYMPHOCYTES # (AUTO) 1.96 x10^3/uL (1-3.4); LYMPHOCYTES % (AUTO) 31 % (22-44); MONOCYTES % (AUTO) 11 % (2-9); NEUTROPHILS # (AUTO) 3.53 x10^3/uL (1.8-6.8); NEUTROPHILS % (AUTO) 56 % (42-75)
[2018-11-06] MEDS: NS + 20MEQ KCL 1,000 ML IV SCH (06:33)
[2018-11-06 07:00] VITALS: BP 145/84
[2018-11-06] MEDS: LEVETIRACETAM 500 MG TABLET PO SCH ×2 (08:58→20:57)
[2018-11-06] MEDS: DULOXETINE 30 MG CAPSULE.DR PO SCH ×2 (08:59→20:57)
[2018-11-06] MEDS: THIAMINE 100MG TABLET PO SCH (08:59)
[2018-11-06] MEDS: LISINOPRIL 10 MG TABLET PO SCH (08:59)
[2018-11-06] MEDS: MULTIVITAMINS/MINERALS TABLET PO SCH (08:59)
[2018-11-06 14:40] VITALS: BP 152/92
[2018-11-06] MEDS: ACETAMINOPHEN 325 MG TABLET PO PRN ×2 (14:58→20:57)
[2018-11-06 18:43] VITALS: BP 156/93
[2018-11-06] MEDS: ONDANSETRON 2MG/ML, 2ML IVPush PRN (20:57)
[2018-11-07] MEDS: IBUPROFEN 600 MG TABLET PO PRN ×2 (01:47→13:14)
[2018-11-07 02:55] VITALS: BP 139/87
[2018-11-07 04:33] LABS: MEAN CORPUSCULAR HGB CONC 31.6 g/dL (32.4-35.8); MEAN CORPUSCULAR VOLUME 85.6 fL (80-100); MEAN PLATELET VOLUME 8.5 fL (7.4-10.4); PLATELET COUNT 330 x10^3/uL (130-400); RED BLOOD COUNT 3.72 x10^6/uL (3.82-5.3); RED CELL DISTRIBUTION WIDTH 22.6 % (9.6-15.2)
[2018-11-07 04:41] LABS: ANION GAP 10 mmol/L (5-15); CALCIUM 8.6 mg/dL (8.5-10.1); CHLORIDE 98 mmol/L (98-107)
[2018-11-07 04:42] LABS: CREATININE 0.54 mg/dL (0.55-1.02)
[2018-11-07 05:37] LABS: BASOPHILS # (AUTO) 0.07 x10^3/uL (0-0.1); BASOPHILS % (AUTO) 1 % (0-1); EOSINOPHILS # (AUTO) 0.11 x10^3/uL (0-0.4); EOSINOPHILS % (AUTO) 2 % (1-7); LYMPHOCYTES # (AUTO) 2.03 x10^3/uL (1-3.4); LYMPHOCYTES % (AUTO) 31 % (22-44); MD SCAN; MONOCYTES % (AUTO) 11 % (2-9); NEUTROPHILS # (AUTO) 3.62 x10^3/uL (1.8-6.8); NEUTROPHILS % (AUTO) 55 % (42-75)
[2018-11-07 07:02] VITALS: BP 105/68
[2018-11-07 08:35] VITALS: BP 162/95
[2018-11-07] MEDS: LISINOPRIL 10 MG TABLET PO SCH (08:36)
[2018-11-07] MEDS: THIAMINE 100MG TABLET PO SCH (08:36)
[2018-11-07] MEDS: LEVETIRACETAM 500 MG TABLET PO SCH ×2 (08:36→21:07)
[2018-11-07] MEDS: MULTIVITAMINS/MINERALS TABLET PO SCH (08:36)
[2018-11-07] MEDS: DULOXETINE 30 MG CAPSULE.DR PO SCH ×2 (08:36→21:07)
[2018-11-07 12:37] VITALS: BP 135/81
[2018-11-07 19:12] VITALS: BP 160/83
[2018-11-07] MEDS: ACETAMINOPHEN 325 MG TABLET PO PRN (21:07)
[2018-11-08] MEDS: IBUPROFEN 600 MG TABLET PO PRN ×2 (00:53→18:26)
[2018-11-08 00:58] VITALS: BP 176/97
[2018-11-08] MEDS: hydrALAzine 20 MG/ML, 1ML IVPush PRN (01:05)
[2018-11-08 01:54] VITALS: BP 133/80
[2018-11-08] MEDS: ONDANSETRON 2MG/ML, 2ML IVPush PRN ×4 (02:08→21:26)
[2018-11-08] MEDS: LORazepam 0.5MG TABLET PO PRN (02:12)
[2018-11-08 06:09] LABS: ANION GAP 9 mmol/L (5-15); CALCIUM 8.7 mg/dL (8.5-10.1); CHLORIDE 98 mmol/L (98-107)
[2018-11-08 06:10] LABS: CREATININE 0.62 mg/dL (0.55-1.02)
[2018-11-08 06:18] LABS: MEAN CORPUSCULAR HEMOGLOBIN 27.5 pg (27.0-34.8); MEAN CORPUSCULAR HGB CONC 32.2 g/dL (32.4-35.8); MEAN CORPUSCULAR VOLUME 85.6 fL (80-100); MEAN PLATELET VOLUME 8.4 fL (7.4-10.4); PLATELET COUNT 345 x10^3/uL (130-400); RED BLOOD COUNT 3.75 x10^6/uL (3.82-5.3); RED CELL DISTRIBUTION WIDTH 22.3 % (9.6-15.2)
[2018-11-08 06:55] LABS: BASOPHILS # (AUTO) 0.04 x10^3/uL (0-0.1); BASOPHILS % (AUTO) 1 % (0-1); EOSINOPHILS # (AUTO) 0.09 x10^3/uL (0-0.4); EOSINOPHILS % (AUTO) 1 % (1-7); LYMPHOCYTES # (AUTO) 2.04 x10^3/uL (1-3.4); LYMPHOCYTES % (AUTO) 28 % (22-44); MD SCAN; MONOCYTES # (AUTO) 0.71 x10^3/uL (0.2-0.8); MONOCYTES % (AUTO) 10 % (2-9); NEUTROPHILS # (AUTO) 4.42 x10^3/uL (1.8-6.8); NEUTROPHILS % (AUTO) 61 % (42-75)
[2018-11-08 06:59] VITALS: BP 163/83
[2018-11-08] MEDS: LEVETIRACETAM 500 MG TABLET PO SCH ×2 (08:19→20:12)
[2018-11-08] MEDS: DULOXETINE 30 MG CAPSULE.DR PO SCH ×2 (08:19→20:12)
[2018-11-08] MEDS: THIAMINE 100MG TABLET PO SCH (08:20)
[2018-11-08] MEDS: LISINOPRIL 10 MG TABLET PO SCH (08:20)
[2018-11-08] MEDS: MULTIVITAMINS/MINERALS TABLET PO SCH (08:20)
[2018-11-08 12:34] VITALS: BP 136/82
[2018-11-08] MEDS: ACETAMINOPHEN 325 MG TABLET PO PRN ×2 (14:56→20:11)
[2018-11-08 18:58] VITALS: BP 149/85
[2018-11-09 00:45] VITALS: BP 161/86
[2018-11-09] MEDS: ONDANSETRON 2MG/ML, 2ML IVPush PRN ×2 (03:42→11:08)
[2018-11-09 05:26] LABS: MEAN CORPUSCULAR HEMOGLOBIN 27.9 pg (27.0-34.8); MEAN CORPUSCULAR HGB CONC 31.9 g/dL (32.4-35.8); MEAN CORPUSCULAR VOLUME 87.5 fL (80-100); MEAN PLATELET VOLUME 8.6 fL (7.4-10.4); PLATELET COUNT 353 x10^3/uL (130-400); RED BLOOD COUNT 3.86 x10^6/uL (3.82-5.3); RED CELL DISTRIBUTION WIDTH 22.9 % (9.6-15.2)
[2018-11-09 05:30] LABS: ANION GAP 7 mmol/L (5-15); CALCIUM 8.8 mg/dL (8.5-10.1); CHLORIDE 99 mmol/L (98-107); CREATININE 0.55 mg/dL (0.55-1.02)
[2018-11-09 06:17] LABS: BASOPHILS # (AUTO) 0.08 x10^3/uL (0-0.1); BASOPHILS % (AUTO) 1 % (0-1); EOSINOPHILS # (AUTO) 0.16 x10^3/uL (0-0.4); EOSINOPHILS % (AUTO) 2 % (1-7); LYMPHOCYTES # (AUTO) 1.69 x10^3/uL (1-3.4); LYMPHOCYTES % (AUTO) 24 % (22-44); MD SCAN; MONOCYTES # (AUTO) 0.67 x10^3/uL (0.2-0.8); MONOCYTES % (AUTO) 9 % (2-9); NEUTROPHILS # (AUTO) 4.58 x10^3/uL (1.8-6.8); NEUTROPHILS % (AUTO) 64 % (42-75)
[2018-11-09] MEDS: DULOXETINE 30 MG CAPSULE.DR PO SCH ×2 (08:28→20:40)
[2018-11-09] MEDS: THIAMINE 100MG TABLET PO SCH (08:28)
[2018-11-09] MEDS: MULTIVITAMINS/MINERALS TABLET PO SCH (08:28)
[2018-11-09] MEDS: LEVETIRACETAM 500 MG TABLET PO SCH ×2 (08:28→20:40)
[2018-11-09] MEDS: LISINOPRIL 10 MG TABLET PO SCH (08:30)
[2018-11-09 09:03] VITALS: BP 152/87
[2018-11-09 14:00] VITALS: BP 165/93
[2018-11-09] MEDS: HYDROcodone/APAP 5/325 TABLET PO PRN (18:06)
[2018-11-09 19:45] VITALS: BP 133/89
[2018-11-09] MEDS ORDERED: ONDANSETRON 4 MG TABLET PO PRN (20:30)
[2018-11-10 00:02] VITALS: BP 121/77
[2018-11-10] MEDS: HYDROcodone/APAP 5/325 TABLET PO PRN ×2 (00:27→10:28)
[2018-11-10] MEDS: IBUPROFEN 600 MG TABLET PO PRN (05:33)
[2018-11-10 05:39] LABS: ANION GAP 9 mmol/L (5-15); CALCIUM 8.7 mg/dL (8.5-10.1); CHLORIDE 96 mmol/L (98-107); CREATININE 0.62 mg/dL (0.55-1.02)
[2018-11-10 05:46] LABS: MEAN CORPUSCULAR HEMOGLOBIN 27.9 pg (27.0-34.8); MEAN CORPUSCULAR HGB CONC 32.6 g/dL (32.4-35.8); MEAN CORPUSCULAR VOLUME 85.6 fL (80-100); MEAN PLATELET VOLUME 8.6 fL (7.4-10.4); PLATELET COUNT 337 x10^3/uL (130-400); RED BLOOD COUNT 3.86 x10^6/uL (3.82-5.3); RED CELL DISTRIBUTION WIDTH 22.7 % (9.6-15.2)
[2018-11-10 06:37] LABS: BASOPHILS # (AUTO) 0.03 x10^3/uL (0-0.1); BASOPHILS % (AUTO) 1 % (0-1); EOSINOPHILS % (AUTO) 2 % (1-7); LYMPHOCYTES # (AUTO) 1.39 x10^3/uL (1-3.4); LYMPHOCYTES % (AUTO) 24 % (22-44); MD SCAN; MONOCYTES # (AUTO) 0.72 x10^3/uL (0.2-0.8); MONOCYTES % (AUTO) 13 % (2-9); NEUTROPHILS # (AUTO) 3.48 x10^3/uL (1.8-6.8); NEUTROPHILS % (AUTO) 61 % (42-75)
[2018-11-10 06:52] VITALS: BP 116/71
[2018-11-10] MEDS: DULOXETINE 30 MG CAPSULE.DR PO SCH (10:28)
[2018-11-10] MEDS: THIAMINE 100MG TABLET PO SCH (10:28)
[2018-11-10] MEDS: LEVETIRACETAM 500 MG TABLET PO SCH (10:28)
[2018-11-10] MEDS: LISINOPRIL 10 MG TABLET PO SCH (10:28)
[2018-11-10] MEDS: MULTIVITAMINS/MINERALS TABLET PO SCH (10:28)
[2018-11-10 13:32] VITALS: BP 93/60
[2018-11-10] MEDS ORDERED: DIPHENHYDRAMINE 50 MG CAPSULE PO STA (14:49)
[2018-11-10] MEDS ORDERED: HALOPERIDOL 5 MG TABLET PO STA (14:49)
[2018-11-10] MEDS ORDERED: HALOPERIDOL 5 MG/ML ONE (14:50)
[2018-11-10] MEDS ORDERED: DIPHENHYDRAMINE 50 MG CAPSULE ONE (14:54)
[2018-11-10] MEDS ORDERED: HALOPERIDOL 5 MG/ML IM STA (14:57)
[2018-11-10] MEDS ORDERED: LORazepam 2 MG/ML, 1ML IM STA (14:57)
[2018-11-10] MEDS ORDERED: LORazepam 1MG TABLET PO ONE (15:00)
[2018-11-10] MEDS ORDERED: LEVE500T8 PO (15:40)
== END 2018-11-10 16:52 | DRG 917 ==
LOC: ED 12:25 → EDIP 12:35 → ED 13:04 → 4EST 14:11
PROVIDERS: ADMIT Hospitalist; ATTEND Hospitalist
PROC: 0T9B70Z Drainage of Bladder with Drainage Device, Via Natural or Artificial Opening (ICD-10-PCS; principal; 2018-10-29)
DX: T40.601A Poisoning by unspecified narcotics, accidental (unintentional), initial encounter (principal); G92 Toxic encephalopathy; F10.239 Alcohol dependence with withdrawal, unspecified; E87.1 Hypo-osmolality and hyponatremia; J96.10 Chronic respiratory failure, unspecified whether with hypoxia or hypercapnia; N39.0 Urinary tract infection, site not specified; R45.851 Suicidal ideations; F11.20 Opioid dependence, uncomplicated; T42.4X1A Poisoning by benzodiazepines, accidental (unintentional), initial encounter; Y92.89 Other specified places as the place of occurrence of the external cause; E87.6 Hypokalemia; F17.210 Nicotine dependence, cigarettes, uncomplicated; F32.9 Major depressive disorder, single episode, unspecified; G40.909 Epilepsy, unspecified, not intractable, without status epilepticus; I10 Essential (primary) hypertension; R19.7 Diarrhea, unspecified; Z79.4 Long term (current) use of insulin; Z81.1 Family history of alcohol abuse and dependence; Z90.710 Acquired absence of both cervix and uterus; Z91.14 Patient's other noncompliance with medication regimen
CPT/HCPCS: 36415; 70450; 70551; 71045; 80048; 80053; 80307; 81001; 82140; 83735; 83930; 83935; 85025; 85610; 85730; 87077; 87086; 87186; 87324; 93005; 95819; G0378; J0696; J2405; J3411; J3480; Q0162; J0360; J1630; J2060; J2270; J3475; J7040

== ENCOUNTER 2019-10-12 14:11 | Emergency (ER) | payer MEDICARE, OTHER ==
[~2019-10-12] VITALS: Ht 170.2 cm; Wt 61.5 kg
[~2019-10-12 14:11] MED LIST changes: +LEVE500T8 PO
--- NOTE | 2019-10-12 14:32 | NUR ---
FIRST CONTACT WITH PT. PT STATES "I FELL THE OTHER DAY SOMEHOW LEFT LEG GOT HURT AND LT RIBS. ITS ALL SWOLLEN" PT'S AOX4. RESPS EVEN AND UNLABORED. BP/SPO2 MONITORS IN PLACE. PT C/O LEFT LEG/LEFT SHOULDER PAIN. DENIES ANY OTHER SX. CALL LIGHT WITHIN REACH.
[2019-10-12] MEDS ORDERED: MORPHINE SULFATE 4 MG/ML, 1ML IVPush PRN (15:00)
[2019-10-12] MEDS ORDERED: ONDANSETRON 2MG/ML, 2ML IVPush ONE (15:00)
[2019-10-12] MEDS ORDERED: SODIUM CHLORIDE FLUSH 10ML SYR IVF ONE (15:00)
[2019-10-12] MEDS ORDERED: ONDANSETRON 2MG/ML, 2ML ONE (15:06)
[2019-10-12] MEDS ORDERED: MORPHINE SULFATE 4 MG/ML, 1ML ONE (15:06)
--- NOTE | 2019-10-12 15:21 | NUR ---
pt medicated per emar. pt tolerated well.
[2019-10-12 15:30] LABS: BASOPHILS # (AUTO) 0.04 x10^3/uL (0-0.1); BASOPHILS % (AUTO) 1 % (0-1); EOSINOPHILS # (AUTO) 0.07 x10^3/uL (0-0.4); EOSINOPHILS % (AUTO) 1 % (1-7); LYMPHOCYTES % (AUTO) 23 % (22-44); MD NO; MEAN CORPUSCULAR HEMOGLOBIN 31.6 pg (27.0-34.8); MEAN CORPUSCULAR HGB CONC 32.2 g/dL (32.4-35.8); MEAN CORPUSCULAR VOLUME 98.3 fL (80-100); MEAN PLATELET VOLUME 9.2 fL (7.4-10.4); MONOCYTES # (AUTO) 0.57 x10^3/uL (0.2-0.8); MONOCYTES % (AUTO) 10 % (2-9); NEUTROPHILS # (AUTO) 3.73 x10^3/uL (1.8-6.8); NEUTROPHILS % (AUTO) 66 % (42-75); PLATELET COUNT 221 x10^3/uL (130-400); RED BLOOD COUNT 3.49 x10^6/uL (3.82-5.3); RED CELL DISTRIBUTION WIDTH 21.9 % (9.6-15.2)
[2019-10-12 15:42] LABS: ALANINE AMINOTRANSFERASE 16 U/L (12-78); ALBUMIN 2.4 g/dL (3.4-5.0); ANION GAP 9 mmol/L (5-15); CALCIUM 7.9 mg/dL (8.5-10.1); CHLORIDE 105 mmol/L (98-107); CREATININE 0.66 mg/dL (0.55-1.02)
[2019-10-12 15:44] LABS: ALKALINE PHOSPHATASE 127 U/L (45-117); BILIRUBIN,TOTAL 0.3 mg/dL (0.2-1.0); TOTAL PROTEIN 6.6 g/dL (6.4-8.2)
--- NOTE | 2019-10-12 16:01 | NUR ---
US AT BEDSIDE AT THIS TIME.
--- NOTE | 2019-10-12 16:12 | NUR ---
SLING APPLIED BY EMT AT THIS TIME.
--- NOTE | 2019-10-12 16:29 | NUR ---
INCENTIVE SPIROMETER GIVEN AND THIS RN EDUCATED ON HOW TO USE. PT VERBALLY UNDERSTANDING.
--- NOTE | 2019-10-12 16:51 | NUR ---
PT TO CT AT THIS TIME.
--- NOTE | 2019-10-12 17:03 | NUR ---
PT BACK TO ROOM FROM CT AT THIS TIME.
[2019-10-12] MEDS ORDERED: OMNIPAQUE 350 MG/ML, 100ML BOTTLE ONE (17:08)
--- NOTE | 2019-10-12 17:22 | NUR ---
DAUGHTER IN LAW'S NUMBER [phone]
[2019-10-12 17:30] VITALS: BP 127/77
--- NOTE | 2019-10-12 17:32 | NUR ---
THIS RN CALLED DAUGHTER IN LAW TO PICK PT UP AT [facility]. PT IS CHANGING IN ROOM NOW AND WAITING DC PAPERS.
--- NOTE | 2019-10-12 17:43 | NUR ---
Patient given discharge instructions and they have confirmed that they understand the instructions. Patient ambulatory with steady gait.
== END 2019-10-12 17:44 | disposition home or self-care (01) ==
LOC: ED 16:18
DX: S43.402A Unspecified sprain of left shoulder joint, initial encounter (principal); S40.012A Contusion of left shoulder, initial encounter; S30.1XXA Contusion of abdominal wall, initial encounter; L03.116 Cellulitis of left lower limb; I10 Essential (primary) hypertension; F17.200 Nicotine dependence, unspecified, uncomplicated; G43.909 Migraine, unspecified, not intractable, without status migrainosus; W01.0XXA Fall on same level from slipping, tripping and stumbling without subsequent striking against object, initial encounter; Y93.89 Activity, other specified; Y92.009 Unspecified place in unspecified non-institutional (private) residence as the place of occurrence of the external cause; Y99.8 Other external cause status
CPT/HCPCS: 36415; 71046; 73030; 73630; 74177; 80053; 85025; 93971; 96374; 96375; 99285; J2270; J2405; Q9967

== ENCOUNTER 2019-11-05 10:56 | Emergency (ER) | payer MEDICARE ==
[~2019-11-05] VITALS: Ht 170.2 cm; Wt 61.4 kg
[~2019-11-05 10:56] MED LIST changes: +MULT-449 PO; -MULT1TAB60 PO
--- NOTE | 2019-11-05 11:30 | NUR ---
"MY LEG IS NICOLE SCREWED UP. IT'S HOT AND SWOLLEN. I HAVE THE SCRATCHES FROM SCRATCHING IT. I TOOK 2 SERIES OF AMOXICILLIN". PER PT FAMILY WON'T STOP PICKING AT [facility]. Bilateral lower extremity +2 swelling, mild redness Palpable pt pulses
--- NOTE | 2019-11-05 11:56 | NUR ---
us at bedside
[2019-11-05 12:01] LABS: BASOPHILS # (AUTO) 0.04 x10^3/uL (0-0.1); BASOPHILS % (AUTO) 1 % (0-1); EOSINOPHILS # (AUTO) 0.15 x10^3/uL (0-0.4); EOSINOPHILS % (AUTO) 2 % (1-7); LYMPHOCYTES # (AUTO) 0.88 x10^3/uL (1-3.4); LYMPHOCYTES % (AUTO) 14 % (22-44); MD NO; MEAN CORPUSCULAR HEMOGLOBIN 30.9 pg (27.0-34.8); MEAN CORPUSCULAR VOLUME 96.7 fL (80-100); MEAN PLATELET VOLUME 8.8 fL (7.4-10.4); MONOCYTES # (AUTO) 0.59 x10^3/uL (0.2-0.8); MONOCYTES % (AUTO) 9 % (2-9); NEUTROPHILS # (AUTO) 4.56 x10^3/uL (1.8-6.8); NEUTROPHILS % (AUTO) 74 % (42-75); PLATELET COUNT 202 x10^3/uL (130-400); RED BLOOD COUNT 3.08 x10^6/uL (3.82-5.3)
[2019-11-05 12:02] LABS: ALBUMIN 2.4 g/dL (3.4-5.0); ANION GAP 9 mmol/L (5-15); CALCIUM 7.9 mg/dL (8.5-10.1); CHLORIDE 102 mmol/L (98-107); CREATININE 1.06 mg/dL (0.55-1.02)
[2019-11-05 12:59] VITALS: BP 112/71
== END 2019-11-05 13:02 | disposition home or self-care (01) ==
LOC: ED 12:56
DX: L03.116 Cellulitis of left lower limb (principal); D53.9 Nutritional anemia, unspecified; E86.0 Dehydration; F17.200 Nicotine dependence, unspecified, uncomplicated; M79.89 Other specified soft tissue disorders
CPT/HCPCS: 36415; 80048; 82040; 85025; 99284

== ENCOUNTER 2019-11-11 02:59 | Emergency (ER) | payer MEDICARE ==
[~2019-11-11] VITALS: Ht 170.2 cm; Wt 57.0 kg
--- NOTE | 2019-11-11 03:32 | NUR ---
PT REPORTS BEING TREATED FOR CELLULITIS ON LEFT LEG, PT STATES IT DOES NOT LOOK BETTER. PLACED VITALS SIGNS MONITORS, SAFETY FALL PRECAUTIONS IN PLACE. CALL LIGHT PLACED WITHIN REACH.
[2019-11-11] MEDS ORDERED: SODIUM CHLORIDE FLUSH 10ML SYR IVF ONE ×2 (05:00→06:30)
--- NOTE | 2019-11-11 05:25 | NUR ---
PT IN ULTRASOUND.
--- NOTE | 2019-11-11 05:43 | NUR ---
LAB AT BEDSIDE.
--- NOTE | 2019-11-11 05:56 | NUR ---
PT SLEEPING INTERMITTENTLY. CALL LIGHT PLACED WITHIN REACH. FALL PRECAUTIONS IN PLACE.
[2019-11-11 06:02] LABS: ALBUMIN 2.4 g/dL (3.4-5.0); ANION GAP 9 mmol/L (5-15); CALCIUM 8.1 mg/dL (8.5-10.1); CHLORIDE 98 mmol/L (98-107)
[2019-11-11 06:06] LABS: ALANINE AMINOTRANSFERASE 32 U/L (12-78); ALKALINE PHOSPHATASE 126 U/L (45-117); BILIRUBIN,TOTAL 0.4 mg/dL (0.2-1.0); CREATININE 0.57 mg/dL (0.55-1.02); TOTAL PROTEIN 6.5 g/dL (6.4-8.2)
[2019-11-11 06:17] LABS: BASOPHILS # (AUTO) 0.05 x10^3/uL (0-0.1); BASOPHILS % (AUTO) 1 % (0-1); EOSINOPHILS # (AUTO) 0.14 x10^3/uL (0-0.4); EOSINOPHILS % (AUTO) 2 % (1-7); LYMPHOCYTES # (AUTO) 1.42 x10^3/uL (1-3.4); LYMPHOCYTES % (AUTO) 23 % (22-44); MD NO; MEAN CORPUSCULAR HEMOGLOBIN 31.1 pg (27.0-34.8); MEAN CORPUSCULAR HGB CONC 31.3 g/dL (32.4-35.8); MEAN CORPUSCULAR VOLUME 99.1 fL (80-100); MEAN PLATELET VOLUME 8.9 fL (7.4-10.4); MONOCYTES # (AUTO) 0.75 x10^3/uL (0.2-0.8); MONOCYTES % (AUTO) 12 % (2-9); NEUTROPHILS # (AUTO) 3.88 x10^3/uL (1.8-6.8); NEUTROPHILS % (AUTO) 62 % (42-75); PLATELET COUNT 222 x10^3/uL (130-400); RED BLOOD COUNT 3.38 x10^6/uL (3.82-5.3); RED CELL DISTRIBUTION WIDTH 22.2 % (9.6-15.2)
[2019-11-11] MEDS ORDERED: VANCOMYCIN PMX 1GM/200ML 200 ML IV ONE (06:30)
[2019-11-11] MEDS ORDERED: VANCOMYCIN PER PHARMACY MC ONE (06:30)
--- NOTE | 2019-11-11 06:39 | NUR ---
LAB AT BEDSIDE FOR BLOOD CULTURES DRAW.
--- NOTE | 2019-11-11 06:49 | NUR ---
Recieved bedside report from SARAH Trevino. All questions answered. NADN. PIV established by medical staff manager. No other needs expressed. Pending PIV medications to begin. Call light within reach. No needs expressed at this time now. Pt AOX4 with unlabored respirations with even chest rise and fall.
[2019-11-11] MEDS ORDERED: POTASSIUM CHLORIDE 20 MEQ TAB.ER.PRT PO ONE (07:00)
[2019-11-11] MEDS ORDERED: POTASSIUM CHLORIDE 20 MEQ TAB.ER.PRT ONE (07:14)
--- NOTE | 2019-11-11 07:28 | NUR ---
Spoke to pt's son with pt's verbal permission. Answered all questions. No other needs expressed. Pt's son will be comingin approximately 35 minutes to get pt after d.c.
--- NOTE | 2019-11-11 08:40 | NUR ---
Patient given discharge instructions and they have confirmed that they understand the instructions. Patient pushed in wheelchair by staff to AL. Pt left with d/c paperwork, RX, and all personal belongings. NADN. No needs expressed.
[2019-11-11 08:41] VITALS: BP 116/74
== END 2019-11-11 08:44 | disposition home or self-care (01) ==
LOC: ED 06:16
DX: D64.9 Anemia, unspecified (principal); L03.116 Cellulitis of left lower limb
CPT/HCPCS: 36415; 80053; 85025; 87040; 93971; 96365; 96366; 99284; J3370

== ENCOUNTER 2019-11-17 12:47 | Emergency (ER) | payer MEDICARE ==
[~2019-11-17] VITALS: Ht 170.2 cm; Wt 57.9 kg
--- NOTE | 2019-11-17 13:47 | NUR ---
NET LEAD ARCHITECT: PT TO ROOM FROM LOBBY, VIA W/C
--- NOTE | 2019-11-17 13:55 | NUR ---
PT BROUGHT BACK FROM TRIAGE FOR C/O OF N/V ALL NIGHT/ STARTING YESTERDAY EVENING. RECENTLY TREATED FOR CELLULITIS OF LEGS A FEW DAYS AGO. WAS GIVEN BACTRIM AND KEFLEX WHICH SHE JUST STARTED YESTERDAY. CELLULITIS PRESENT ON LLE FOR FEW MONTHS.
[2019-11-17] MEDS ORDERED: ONDANSETRON ODT 4 MG ONE (14:38)
[2019-11-17] MEDS ORDERED: MAALOX/HYOSCYAMINE/LIDOCAINE 45 ML BTL ONE (14:39)
--- NOTE | 2019-11-17 14:43 | NUR ---
BREAK RN: MEDICATED PER ORDERS. PT TOLERATED WELL.
[2019-11-17 15:00] LABS: MEAN CORPUSCULAR HEMOGLOBIN 31.4 pg (27.0-34.8); MEAN CORPUSCULAR HGB CONC 32.3 g/dL (32.4-35.8); MEAN CORPUSCULAR VOLUME 97.2 fL (80-100); MEAN PLATELET VOLUME 8.6 fL (7.4-10.4); PLATELET COUNT 378 x10^3/uL (130-400); RED BLOOD COUNT 3.29 x10^6/uL (3.82-5.3); RED CELL DISTRIBUTION WIDTH 21.1 % (9.6-15.2)
[2019-11-17] MEDS ORDERED: MAALOX/HYOSCYAMINE/LIDOCAINE 45 ML BTL PO ONE (15:00)
[2019-11-17] MEDS ORDERED: ONDANSETRON ODT 4 MG PO ONE (15:00)
[2019-11-17 15:05] LABS: ALANINE AMINOTRANSFERASE 16 U/L (12-78); ALBUMIN 2.1 g/dL (3.4-5.0); ANION GAP 10 mmol/L (5-15); CALCIUM 8.3 mg/dL (8.5-10.1); CHLORIDE 97 mmol/L (98-107); CREATININE 0.59 mg/dL (0.55-1.02)
[2019-11-17 15:07] LABS: ALKALINE PHOSPHATASE 160 U/L (45-117); BILIRUBIN,TOTAL 0.5 mg/dL (0.2-1.0); TOTAL PROTEIN 6.5 g/dL (6.4-8.2)
[2019-11-17 15:24] VITALS: BP 126/71
--- NOTE | 2019-11-17 15:25 | NUR ---
Patient is resting in bed, sleepy but awakens easily to voice. Patient c/o of 8/10 left-leg pain. Vital Signs within normal limits.
[2019-11-17 15:28] LABS: BASOPHILS # (AUTO) 0.03 x10^3/uL (0-0.1); BASOPHILS % (AUTO) 1 % (0-1); EOSINOPHILS # (AUTO) 0.05 x10^3/uL (0-0.4); EOSINOPHILS % (AUTO) 1 % (1-7); LYMPHOCYTES # (AUTO) 0.91 x10^3/uL (1-3.4); LYMPHOCYTES % (AUTO) 14 % (22-44); MD SCAN; MONOCYTES # (AUTO) 0.39 x10^3/uL (0.2-0.8); MONOCYTES % (AUTO) 6 % (2-9); NEUTROPHILS # (AUTO) 5.11 x10^3/uL (1.8-6.8); NEUTROPHILS % (AUTO) 79 % (42-75)
--- NOTE | 2019-11-17 15:55 | NUR ---
DISCHARGE INSTRUCTIONS REVIEWED
== END 2019-11-17 16:05 | disposition home or self-care (01) ==
LOC: ED 14:03
DX: R11.2 Nausea with vomiting, unspecified (principal); L03.116 Cellulitis of left lower limb; G40.909 Epilepsy, unspecified, not intractable, without status epilepticus; I10 Essential (primary) hypertension; F17.200 Nicotine dependence, unspecified, uncomplicated
CPT/HCPCS: 36415; 80053; 83690; 85025; 99283; Q0162

== ENCOUNTER 2020-02-08 15:59 | Inpatient (IN) | payer MEDICARE ==
[~2020-02-08] VITALS: Ht 170.2 cm; Wt 60.8 kg
[~2020-02-08 15:59] MED LIST changes: -PANT40TA5 PO; +PANT40TA6 PO
[2020-02-08] MEDS ORDERED: SODIUM CHLORIDE 0.9% 1,000ML IVBOLUS ONE ×2 (16:30→17:30)
[2020-02-08] MEDS ORDERED: FAMOTIDINE 20 MG/2 ML IVPush ONE (16:30)
[2020-02-08] MEDS ORDERED: SODIUM CHLORIDE FLUSH 10ML SYR IVF ONE (16:30)
[2020-02-08] MEDS ORDERED: ONDANSETRON 2MG/ML, 2ML IVPush ONE (16:30)
[2020-02-08] MEDS ORDERED: ONDANSETRON 2MG/ML, 2ML ONE (16:37)
[2020-02-08] MEDS ORDERED: FAMOTIDINE 20 MG/2 ML ONE (16:37)
[2020-02-08 16:42] LABS: BASOPHILS % (AUTO) 0 % (0-1); EOSINOPHILS % (AUTO) 0 % (1-7); LYMPHOCYTES % (AUTO) 9 % (22-44); MEAN CORPUSCULAR HEMOGLOBIN 31.4 pg (27.0-34.8); MEAN CORPUSCULAR HGB CONC 32.3 g/dL (32.4-35.8); MONOCYTES % (AUTO) 5 % (2-9); NEUTROPHILS % (AUTO) 86 % (42-75); PLATELET COUNT 281 x10^3/uL (130-400); RED CELL DISTRIBUTION WIDTH 20.8 % (9.6-15.2)
--- NOTE | 2020-02-08 16:45 | NUR ---
MEDS ADMIN PER MAR. IVF STARTED BY [facility] CONTINUING FOR 1L INFUSION.
[2020-02-08 16:48] LABS: ALANINE AMINOTRANSFERASE 19 U/L (12-78); ALBUMIN 2.6 g/dL (3.4-5.0); ANION GAP 12 mmol/L (5-15); CALCIUM 8.2 mg/dL (8.5-10.1); CHLORIDE 96 mmol/L (98-107); CREATININE 0.66 mg/dL (0.55-1.02)
[2020-02-08 16:50] LABS: ALKALINE PHOSPHATASE 164 U/L (45-117); INTERNATIONAL NORMALIZED RATIO 1.1 (0.93-1.1); PROTHROMBIN TIME 11.3 Seconds (9.6-11.5); TOTAL PROTEIN 6.7 g/dL (6.4-8.2)
[2020-02-08 17:03] LABS: MD SCAN
--- NOTE | 2020-02-08 17:06 | NUR ---
PT TO XRAY.
[2020-02-08] MEDS ORDERED: PROMETHAZINE 25 MG/ML, 1ML ONE (17:28)
[2020-02-08] MEDS ORDERED: PROMETHAZINE 25 MG/ML, 1ML IM ONE (17:30)
--- NOTE | 2020-02-08 17:32 | NUR ---
PT BACK FROM XRAY. PT C/O PERSISTANT NAUSEA. DR. MORALES NOTIFIED. PHENERGAN ORDERED AND GIVEN. WILL CONTINUE TO MONITOR. AWAITING XRAY READ.
[2020-02-08] MEDS ORDERED: MAALOX/HYOSCYAMINE/LIDOCAINE 45 ML BTL ONE (18:02)
--- NOTE | 2020-02-08 18:18 | NUR ---
PIV IS POSITIONAL AND PT DOES NOT KEEP HER WRIST STRAIGHT FOR IVF, SO IVF RUNNING SLOW. SECOND PIV ATTEMPT X2 WITHOUT SUCCESS FOR IVF. TASK RN AT BEDSIDE FOR US PIV PLACEMENT FOR 2ND LITER INFUSION,.
[2020-02-08] MEDS ORDERED: MAALOX/HYOSCYAMINE/LIDOCAINE 45 ML BTL PO ONE (18:30)
--- NOTE | 2020-02-08 18:45 | NUR ---
PT STATES STOMACH ISN'T BURNING AFTER GI COCKTAIL.
--- NOTE | 2020-02-08 18:53 | NUR ---
2ND PIV PLACEMENT ATTEMPT UNSUCCESSFULL. BOARD PLACED ON PT WRIST AND WRAPPED IN KERLIX TO KEEP IV INFUSING. 2ND LITER INFUSING.
--- NOTE | 2020-02-08 19:01 | NUR ---
PT GIVEN WATER FOR PO CHALLENGE.
--- NOTE | 2020-02-08 19:15 | NUR ---
PT STATES PO WATER MADE HER NAUSEATED, SO DIDN'T DRINK ANYMORE.
[2020-02-08] MEDS ORDERED: NICOTINE 14MG/24 HR PATCH.TD24 TD ONE (20:00)
[2020-02-08] MEDS ORDERED: POTASSIUM CHLORIDE 40 MEQ in SODIUM CHLORIDE 0.9% 500 ML IV ONE (20:00)
[2020-02-08] MEDS ORDERED: DOCUSATE 100 MG CAPSULE PO PRN (20:00)
[2020-02-08] MEDS ORDERED: LABETALOL 5MG/ML, 20ML IVPush PRN (20:00)
[2020-02-08] MEDS ORDERED: NICOTINE 14MG/24 HR PATCH.TD24 ONE (20:36)
[2020-02-08] MEDS ORDERED: GABAPENTIN 300 MG CAPSULE ONE (20:37)
[2020-02-08] MEDS ORDERED: HEPARIN 5,000 UNITS/ML, 1ML ONE (20:37)
[2020-02-08] MEDS: HEPARIN 5,000 UNITS/ML, 1ML SQ SCH (20:39)
[2020-02-08] MEDS: GABAPENTIN 300 MG CAPSULE PO PRN (20:40)
[2020-02-08] MEDS: SODIUM CHLORIDE 0.9% 1,000 ML IV SCH (20:47)
[2020-02-08] MEDS ORDERED: METOCLOPRAMIDE 5 MG/ML, 2ML ONE (20:56)
[2020-02-08] MEDS ORDERED: LORazepam 2 MG/ML, 1ML IM PRN (21:00)
[2020-02-08] MEDS: METOCLOPRAMIDE 5 MG/ML, 2ML IVPush SCH (21:11)
--- NOTE | 2020-02-08 21:15 | NUR ---
REPORT GIVEN TO YOSHI SMITH.
--- NOTE | 2020-02-08 21:15 | NUR ---
ASSUMED CARE OF PATIENT. BEDSIDE REPORT FROM SARAH BELLAMY
--- NOTE | 2020-02-08 23:42 | NUR ---
TASK RN: REPORT GIVEN FROM SARHA BELLE IN ED TO SARAH CAMACHO ON TELE.
[2020-02-09 00:19] VITALS: BP 130/84
[2020-02-09] MEDS: ACETAMINOPHEN 325 MG TABLET PO PRN ×2 (01:13→16:36)
[2020-02-09] MEDS: HEPARIN 5,000 UNITS/ML, 1ML SQ SCH ×3 (04:56→20:20)
[2020-02-09] MEDS ORDERED: MAGNESIUM SULFATE/D5W 100 ML IV ONE (06:00)
[2020-02-09 08:41] LABS: BASOPHILS % (AUTO) 1 % (0-1); EOSINOPHILS % (AUTO) 1 % (1-7); LYMPHOCYTES % (AUTO) 19 % (22-44); MEAN CORPUSCULAR HEMOGLOBIN 31.7 pg (27.0-34.8); MEAN CORPUSCULAR HGB CONC 32.3 g/dL (32.4-35.8); MONOCYTES % (AUTO) 9 % (2-9); NEUTROPHILS % (AUTO) 71 % (42-75); PLATELET COUNT 193 x10^3/uL (130-400); RED BLOOD COUNT 2.67 x10^6/uL (3.82-5.3); RED CELL DISTRIBUTION WIDTH 21.1 % (9.6-15.2)
[2020-02-09 08:50] LABS: ALANINE AMINOTRANSFERASE 12 U/L (12-78); ALBUMIN 1.7 g/dL (3.4-5.0); ANION GAP 5 mmol/L (5-15); CALCIUM 7.4 mg/dL (8.5-10.1); CHLORIDE 109 mmol/L (98-107); CREATININE 0.44 mg/dL (0.55-1.02)
[2020-02-09 08:53] LABS: ALKALINE PHOSPHATASE 120 U/L (45-117); BILIRUBIN,TOTAL 0.8 mg/dL (0.2-1.0); TOTAL PROTEIN 4.8 g/dL (6.4-8.2)
[2020-02-09 09:14] LABS: MD MORPH REVIEW ONLY
[2020-02-09 09:15] LABS: <PLATELET ESTIMATE> ADEQUATE; <PLT MORPHOLOGY> NORMAL PLT MORPH; ANISOCYTOSIS 1+; HYPOCHROMIA 1+; POLYCHROMASIA 1+
[2020-02-09 10:15] VITALS: BP 132/90
[2020-02-09] MEDS: METOCLOPRAMIDE 5 MG/ML, 2ML IVPush SCH ×3 (10:39→22:54)
[2020-02-09] MEDS: SODIUM CHLORIDE 0.9% 1,000 ML IV SCH (12:17)
[2020-02-09 14:23] VITALS: BP 149/79
[2020-02-09 14:52] LABS: AMPHETAMINE SCREEN, URINE Negative (Negative); BARBITURATE SCREEN, URINE Negative (Negative); BENZODIAZEPINE SCREEN, URINE Negative (Negative); CANNABINOID SCREEN, URINE Negative (Negative); COCAINE SCREEN, URINE Negative (Negative); METHADONE SCREEN, URINE Negative (Negative); OPIATE SCREEN, URINE Positive (Negative)
[2020-02-09 14:57] LABS: OSMOLALITY,URINE 388 mOsm/kg (500-850)
[2020-02-09 20:16] VITALS: BP 119/79
[2020-02-09] MEDS: LORazepam 2 MG/ML, 1ML IVPush PRN (20:20)
[2020-02-10 00:08] VITALS: BP 109/70
[2020-02-10] MEDS: LORazepam 2 MG/ML, 1ML IVPush PRN ×4 (01:54→20:53)
[2020-02-10] MEDS: HEPARIN 5,000 UNITS/ML, 1ML SQ SCH (05:16)
[2020-02-10 05:17] LABS: BASOPHILS % (AUTO) 1 % (0-1); EOSINOPHILS % (AUTO) 2 % (1-7); LYMPHOCYTES % (AUTO) 32 % (22-44); MEAN CORPUSCULAR HEMOGLOBIN 31.7 pg (27.0-34.8); MEAN CORPUSCULAR HGB CONC 32.3 g/dL (32.4-35.8); MEAN PLATELET VOLUME 8.5 fL (7.4-10.4); MONOCYTES % (AUTO) 9 % (2-9); NEUTROPHILS % (AUTO) 57 % (42-75); PLATELET COUNT 204 x10^3/uL (130-400); RED BLOOD COUNT 2.62 x10^6/uL (3.82-5.3); RED CELL DISTRIBUTION WIDTH 20.8 % (9.6-15.2)
[2020-02-10 05:21] LABS: MD NO
[2020-02-10 07:48] VITALS: BP 122/76
[2020-02-10] MEDS: METOCLOPRAMIDE 5 MG/ML, 2ML IVPush SCH ×3 (09:09→21:48)
[2020-02-10] MEDS: HYDROcodone/APAP 10/325 MG TABLET PO PRN ×2 (10:24→16:22)
[2020-02-10] MEDS: IRON SUCROSE COMPLEX 100MG/5ML IV SCH (11:09)
[2020-02-10] MEDS ORDERED: OMNIPAQUE 350 MG/ML, 100ML BOTTLE ONE (12:29)
[2020-02-10 15:36] VITALS: BP 135/89
[2020-02-10] MEDS ORDERED: FLU VACC QS2020-21(6MOS UP)/PF 60MCG/0.5 ML SYR IM-VACC ONE (18:00)
[2020-02-10 18:53] VITALS: BP 116/76
[2020-02-11 01:33] VITALS: BP 129/80
[2020-02-11 05:18] LABS: BASOPHILS % (AUTO) 1 % (0-1); EOSINOPHILS % (AUTO) 2 % (1-7); LYMPHOCYTES % (AUTO) 20 % (22-44); MEAN CORPUSCULAR HEMOGLOBIN 31.3 pg (27.0-34.8); MEAN CORPUSCULAR HGB CONC 31.9 g/dL (32.4-35.8); MONOCYTES % (AUTO) 8 % (2-9); NEUTROPHILS % (AUTO) 69 % (42-75); PLATELET COUNT 166 x10^3/uL (130-400); RED CELL DISTRIBUTION WIDTH 20.8 % (9.6-15.2)
[2020-02-11 05:22] LABS: ANION GAP 6 mmol/L (5-15); CALCIUM 7.4 mg/dL (8.5-10.1); CHLORIDE 102 mmol/L (98-107); MD NO
[2020-02-11 05:24] LABS: CREATININE 0.42 mg/dL (0.55-1.02)
[2020-02-11] MEDS: HYDROcodone/APAP 10/325 MG TABLET PO PRN ×2 (06:09→12:50)
[2020-02-11 08:15] VITALS: BP 96/66
[2020-02-11] MEDS: METOCLOPRAMIDE 5 MG/ML, 2ML IVPush SCH ×2 (08:40→17:21)
[2020-02-11] MEDS: LORazepam 2 MG/ML, 1ML IVPush PRN ×2 (08:40→12:50)
[2020-02-11] MEDS ORDERED: PANTOPRAZOLE 40MG TABLET PO SCH (09:00)
[2020-02-11] MEDS: GABAPENTIN 300 MG CAPSULE PO PRN (11:28)
[2020-02-11] MEDS: IRON SUCROSE COMPLEX 100MG/5ML IV SCH (11:28)
[2020-02-11 12:30] VITALS: BP 115/77
[2020-02-11] MEDS ORDERED: FERR324T5 PO (14:20)
== END 2020-02-11 17:58 | disposition home or self-care (01) | DRG 392 ==
LOC: ED 18:30 → EDIP 20:30 → 5SO 23:22 → 3N 02-09 19:25
PROVIDERS: ADMIT Family Medicine; ATTEND Hospitalist
DX: A08.4 Viral intestinal infection, unspecified (principal); E87.1 Hypo-osmolality and hyponatremia; J96.10 Chronic respiratory failure, unspecified whether with hypoxia or hypercapnia; D50.9 Iron deficiency anemia, unspecified; E83.42 Hypomagnesemia; E86.0 Dehydration; E87.6 Hypokalemia; F11.10 Opioid abuse, uncomplicated; G40.909 Epilepsy, unspecified, not intractable, without status epilepticus; G89.4 Chronic pain syndrome; I10 Essential (primary) hypertension
CPT/HCPCS: 36415; 74021; 74177; 80048; 80053; 80307; 82607; 82728; 83540; 83550; 83690; 83735; 83930; 83935; 84295; 84443; 85018; 85025; 85610; 85730; 90686; 96361; 96372; 96374; 96375; 99285; G0378; J1644; J1756; J2405; J2550; J3480; Q9967; J2060; J2765; J7030; J7040

== ENCOUNTER 2020-08-05 10:00 | Inpatient (IN) | payer MEDICARE ==
[~2020-08-05] VITALS: Ht 170.2 cm; Wt 58.0 kg
[~2020-08-05 10:00] MED LIST changes: +FERR324T5 PO; -FOLI-17 PO; +FOLI1TAB32 PO; -NICO-487 TD; +NICO-587 TD
--- NOTE | 2020-08-05 10:25 | NUR ---
Pt in room from triage slummed over in wheelchair with daughter at side. Pt with full skin assessment completed, and MD and RN at bedside now.
[2020-08-05] MEDS ORDERED: SODIUM CHLORIDE 0.9% 1,000ML IVBOLUS ONE ×2 (10:30→12:00)
[2020-08-05] MEDS ORDERED: SODIUM CHLORIDE FLUSH 10ML SYR IVF ONE (10:30)
--- NOTE | 2020-08-05 10:30 | NUR ---
Second RN called to bedside for assistance with straight cath UA. Sterile technique utilized and sample walked to lab by other RN. Attempting IV now for fluid. Noted significant hypotension, hot skin temp, HR in 90's, RR elevated at 23, and wounds to legs and upper back. Daughter states she is a daily drinker but has not had any alcohol for 24 hours due to feeling unwell. HX DT's and withdrawal sz's reported by daughter.
--- NOTE | 2020-08-05 10:45 | NUR ---
IV attempts x4 unsuccessful with good flash then infiltration. Second RN called to attempt at this time. NS 1 liter prepared. SBP mid 80's with continued ALOC, lethargy.
[2020-08-05 10:57] LABS: MICROSCOPIC NOT IND
--- NOTE | 2020-08-05 11:04 | NUR ---
Second RN also unsuccessful with IV attempts. USGPIV attempt starting now. anesthesiology tech at bedside for draw.
--- NOTE | 2020-08-05 11:17 | NUR ---
VS documented at this time are actually from 1030, but cannot edit already saved data. Therefore, this is an inaccurate BP for this time.
--- NOTE | 2020-08-05 11:28 | NUR ---
IV started to R EJ by this RN and IV bolus started and running wide open. Lab just completed the rest of the draw.
[2020-08-05 11:39] LABS: MEAN CORPUSCULAR HEMOGLOBIN 25.1 pg (27.0-34.8); MEAN CORPUSCULAR HGB CONC 31.8 g/dL (32.4-35.8); MEAN PLATELET VOLUME 8.8 fL (7.4-10.4); PLATELET COUNT 232 x10^3/uL (130-400); RED BLOOD COUNT 3.19 x10^6/uL (3.82-5.3); RED CELL DISTRIBUTION WIDTH 18.5 % (9.6-15.2)
--- NOTE | 2020-08-05 11:50 | NUR ---
Second liter for 500mL additional bolus for 30mL/kg requirements for SIRS/Sepsis started now. MD aware of current VS. Pt taken to radiology at this time.
[2020-08-05 11:52] LABS: CHLORIDE 107 mmol/L (98-107)
[2020-08-05 12:01] LABS: ALANINE AMINOTRANSFERASE 10 U/L (12-78); ALBUMIN 2.4 g/dL (3.4-5.0); ALKALINE PHOSPHATASE 97 U/L (45-117); ANION GAP 8 mmol/L (5-15); BILIRUBIN,TOTAL 0.7 mg/dL (0.2-1.0); CALCIUM 8.2 mg/dL (8.5-10.1); CREATININE 0.59 mg/dL (0.55-1.02); TOTAL PROTEIN 5.7 g/dL (6.4-8.2)
[2020-08-05 12:04] LABS: MD YES
[2020-08-05 12:05] LABS: BAND#(MANUAL) 6.48 x10^3/uL; BANDS%(MANUAL) 30 % (0-7); LYMPH#(MANUAL) 0.22 x10^3/uL (1-3.4); LYMPHS% (MANUAL) 1 % (22-44); MONOS#(MANUAL) 0.22 x10^3/uL (0.3-2.7); MONOS% (MANUAL) 1 % (2-9); SEG#(MANUAL) 14.69 x10^3/uL (1.8-6.8); SEGS% (MANUAL) 68 % (42-75)
[2020-08-05 12:06] LABS: <PLATELET ESTIMATE> ADEQUATE; <PLT MORPHOLOGY> NORMAL PLT MORPH; ANISOCYTOSIS 1+; MICROCYTOSIS 1+
--- NOTE | 2020-08-05 12:15 | NUR ---
Pt returned from radiology without acute changes and VS remain stable at this time. 2 more family members arrived and all family visitors educated on 1 visitor at a time policy for ED with stated understanding and compliance with request.
[2020-08-05] MEDS ORDERED: PIPERACILLIN/TAZO/PMX 3.375GM 50 ML IV ONE (12:30)
[2020-08-05] MEDS ORDERED: POTASSIUM CHLORIDE 10% 40 MEQ/30 ML UDC PO ONE (12:30)
[2020-08-05] MEDS ORDERED: VANCOMYCIN PER PHARMACY MC ONE (12:30)
[2020-08-05] MEDS ORDERED: POTASSIUM CHLORIDE 40 MEQ in SODIUM CHLORIDE 0.9% 1,000 ML IV ONE (12:30)
[2020-08-05] MEDS ORDERED: MAGNESIUM SULFATE 1 GM in SODIUM CHLORIDE 0.9% 50 ML IV ONE (12:30)
--- NOTE | 2020-08-05 12:50 | NUR ---
Admitting MD at bedside for exam.
[2020-08-05] MEDS ORDERED: MAGNESIUM SULFATE/D5W 100 ML IVPB ONE (13:00)
[2020-08-05] MEDS ORDERED: NS + 40MEQ KCL 1,000 ML IV ONE (13:12)
[2020-08-05] MEDS ORDERED: MAGNESIUM SULFATE/D5W 100 ML ONE (13:12)
[2020-08-05] MEDS ORDERED: PIPERACILLIN/TAZO/PMX 3.375GM 50 ML ONE (13:12)
[2020-08-05] MEDS ORDERED: POTASSIUM CHLORIDE 20 MEQ PACKET ONE (13:12)
--- NOTE | 2020-08-05 13:28 | NUR ---
IVF with KCl started via pump, Mag IVPB and Zosyn IVPB also running at this time. Awaiting Vanco from pharmacy. Pt able to yake po KCl with coaching to stay awake. VSS
[2020-08-05] MEDS ORDERED: VANCOMYCIN 1,200 MG in SODIUM CHLORIDE 0.9% 250 ML IV ONE (13:30)
[2020-08-05] MEDS ORDERED: SODIUM CHLORIDE FLUSH 10ML SYR IVF PRN (13:30)
[2020-08-05] MEDS ORDERED: VANCOMYCIN PER PHARMACY MC PRN (13:30)
[2020-08-05] MEDS ORDERED: hydrALAzine 20 MG/ML, 1ML IVPush PRN (13:30)
[2020-08-05] MEDS ORDERED: ONDANSETRON ODT 4 MG PO PRN (13:30)
[2020-08-05] MEDS ORDERED: BISACODYL 10 MG SUPP PR PRN (13:30)
[2020-08-05] MEDS ORDERED: ENALAPRILAT 1.25 MG/ML, 2ML IVPush PRN (13:30)
[2020-08-05] MEDS ORDERED: POLYETHYLENE GLYCOL 17 GM PACKET PO PRN (13:30)
[2020-08-05] MEDS ORDERED: BUPR1FIL5 TD (13:38)
--- NOTE | 2020-08-05 13:39 | NUR ---
Attempt to pavan report unsuccessful. On hold for >3 minutes. Will try again shortly.
--- NOTE | 2020-08-05 13:50 | NUR ---
Report sole Almaguer, RN and pt being taken to radiology for another exam. biofuels processing technician states he cannot take her up to the room and will bring her back here. Throughput RN notified. Son now at bedside pacing in room. Aware of visitation hours on the floor.
--- NOTE | 2020-08-05 13:55 | NUR ---
Blanche arrived from pharmacy at this time.
--- NOTE | 2020-08-05 14:08 | NUR ---
Pt back from radiology. Readied for transport to floor.
[2020-08-05] MEDS ORDERED: PHARMACOKINETIC MONITORING MC PRN (15:30)
[2020-08-05 15:54] LABS: AMPHETAMINE SCREEN, URINE Negative (Negative); BARBITURATE SCREEN, URINE Negative (Negative); BENZODIAZEPINE SCREEN, URINE Positive (Negative); CANNABINOID SCREEN, URINE Negative (Negative); COCAINE SCREEN, URINE Negative (Negative); METHADONE SCREEN, URINE Negative (Negative); OPIATE SCREEN, URINE Positive (Negative)
[2020-08-05] MEDS: NS + 20MEQ KCL 1,000 ML IV SCH (16:57)
[2020-08-05] MEDS: ENOXAPARIN 40 MG/0.4 ML SQ SCH (16:57)
[2020-08-05 19:13] VITALS: BP 120/71
[2020-08-05] MEDS ORDERED: PIPERACILLIN/TAZO/PMX 3.375GM 50 ML IV SCH (20:00)
[2020-08-05 20:10] VITALS: BP 102/64
[2020-08-05] MEDS: PIPERACILLIN/TAZO 3.375 GM in DEXTROSE 5% 50 ML IV SCH (22:04)
[2020-08-05] MEDS: ONDANSETRON 2MG/ML, 2ML IVPush PRN (22:04)
[2020-08-05] MEDS: ACETAMINOPHEN 325 MG TABLET PO PRN (22:05)
[2020-08-06 02:00] VITALS: BP 97/58
[2020-08-06] MEDS ORDERED: PROMETHAZINE 25 MG/ML, 1ML IM ONE (02:30)
[2020-08-06] MEDS: VANCOMYCIN PMX 1GM/200ML 200 ML IVPB SCH ×2 (02:51→14:04)
[2020-08-06] MEDS: NS + 20MEQ KCL 1,000 ML IV SCH ×2 (03:03→14:04)
[2020-08-06] MEDS: PIPERACILLIN/TAZO 3.375 GM in DEXTROSE 5% 50 ML IV SCH ×4 (04:39→22:15)
[2020-08-06 05:12] LABS: MEAN CORPUSCULAR HGB CONC 30.7 g/dL (32.4-35.8); MEAN PLATELET VOLUME 8.9 fL (7.4-10.4); PLATELET COUNT 200 x10^3/uL (130-400); RED BLOOD COUNT 3.33 x10^6/uL (3.82-5.3); RED CELL DISTRIBUTION WIDTH 18.7 % (9.6-15.2)
[2020-08-06 05:25] LABS: ANION GAP 7 mmol/L (5-15); CALCIUM 7.6 mg/dL (8.5-10.1); CHLORIDE 111 mmol/L (98-107)
[2020-08-06 05:26] LABS: CREATININE 0.53 mg/dL (0.55-1.02)
[2020-08-06 05:50] LABS: MD YES
[2020-08-06 05:51] LABS: BAND#(MANUAL) 5.06 x10^3/uL; BANDS%(MANUAL) 22 % (0-7); LYMPH#(MANUAL) 0.92 x10^3/uL (1-3.4); LYMPHS% (MANUAL) 4 % (22-44); MONOS#(MANUAL) 0.23 x10^3/uL (0.3-2.7); MONOS% (MANUAL) 1 % (2-9); SEG#(MANUAL) 16.79 x10^3/uL (1.8-6.8); SEGS% (MANUAL) 73 % (42-75)
[2020-08-06 05:52] LABS: <PLATELET ESTIMATE> ADEQUATE; <PLT MORPHOLOGY> NORMAL PLT MORPH; ANISOCYTOSIS 1+; MICROCYTOSIS 1+
[2020-08-06] MEDS: ACETAMINOPHEN 325 MG TABLET PO PRN ×2 (06:01→22:15)
[2020-08-06 06:02] VITALS: BP 112/66
[2020-08-06 07:22] VITALS: BP 109/58
[2020-08-06] MEDS: ONDANSETRON 2MG/ML, 2ML IVPush PRN ×2 (08:31→14:18)
[2020-08-06] MEDS: SENNA/DOCUSATE TABLET PO SCH (08:31)
[2020-08-06] MEDS ORDERED: POTASSIUM CHLORIDE 40 MEQ in SODIUM CHLORIDE 0.9% 500 ML IV ONE (11:00)
[2020-08-06 12:22] LABS: CLOSTRIDIUM DIFFICILE ANTIGEN NEGATIVE; CLOSTRIDIUM DIFFICILE TOXIN NEGATIVE (Negative)
[2020-08-06 12:59] VITALS: BP 126/78
[2020-08-06] MEDS: ENOXAPARIN 40 MG/0.4 ML SQ SCH (14:04)
[2020-08-06] MEDS ORDERED: LORazepam 0.5MG TABLET PO PRN (19:30)
[2020-08-06] MEDS ORDERED: LORazepam 1MG TABLET PO PRN ×2 (19:30)
[2020-08-06 19:43] VITALS: BP 115/70
[2020-08-06 20:57] LABS: ANION GAP 6 mmol/L (5-15); CALCIUM 7.9 mg/dL (8.5-10.1); CHLORIDE 113 mmol/L (98-107); CREATININE 0.61 mg/dL (0.55-1.02)
[2020-08-06] MEDS: THIAMINE 100MG TABLET PO SCH (22:15)
[2020-08-06] MEDS: MAGNESIUM CHLORIDE 64 MG TABLET.DR PO SCH (22:15)
[2020-08-07 01:28] VITALS: BP 105/66
[2020-08-07 02:33] LABS: HCT (SEDRATE) 24.1 % (34.6-47.8)
[2020-08-07 02:34] LABS: BASOPHILS % (AUTO) 1 % (0-1); EOSINOPHILS % (AUTO) 0 % (1-7); LYMPHOCYTES % (AUTO) 4 % (22-44); MEAN CORPUSCULAR HEMOGLOBIN 24.9 pg (27.0-34.8); MEAN CORPUSCULAR HGB CONC 31.4 g/dL (32.4-35.8); MEAN PLATELET VOLUME 8.8 fL (7.4-10.4); MONOCYTES % (AUTO) 4 % (2-9); NEUTROPHILS % (AUTO) 91 % (42-75); PLATELET COUNT 176 x10^3/uL (130-400); RED CELL DISTRIBUTION WIDTH 18.7 % (9.6-15.2)
[2020-08-07 02:35] LABS: MD NO
[2020-08-07 02:48] LABS: ANION GAP 3 mmol/L (5-15); CALCIUM 7.7 mg/dL (8.5-10.1); CHLORIDE 114 mmol/L (98-107); CREATININE 0.57 mg/dL (0.55-1.02)
[2020-08-07] MEDS: VANCOMYCIN 1,000 MG in SODIUM CHLORIDE 0.9% 100 ML IV SCH ×3 (03:00→16:05)
[2020-08-07] MEDS: PIPERACILLIN/TAZO 3.375 GM in DEXTROSE 5% 50 ML IV SCH ×4 (05:24→23:36)
[2020-08-07 08:22] VITALS: BP 143/93
[2020-08-07] MEDS ORDERED: POTASSIUM CHLORIDE 40 MEQ in SODIUM CHLORIDE 0.9% 500 ML IV ONE (08:30)
[2020-08-07] MEDS: THIAMINE 100MG TABLET PO SCH (09:14)
[2020-08-07] MEDS: ONDANSETRON 2MG/ML, 2ML IV PRN (09:14)
[2020-08-07] MEDS: SENNA/DOCUSATE TABLET PO SCH (09:14)
[2020-08-07] MEDS: MAGNESIUM CHLORIDE 64 MG TABLET.DR PO SCH ×3 (09:14→22:08)
[2020-08-07] MEDS: MULTIVITAMINS/MINERALS TABLET PO SCH (09:14)
[2020-08-07] MEDS: LORazepam 1MG TABLET PO PRN (09:37)
[2020-08-07] MEDS: ACETAMINOPHEN 325 MG TABLET PO PRN (09:37)
[2020-08-07 15:59] VITALS: BP 147/86
[2020-08-07] MEDS: ENOXAPARIN 40 MG/0.4 ML SQ SCH (16:00)
[2020-08-07] MEDS: NS + 20MEQ KCL 1,000 ML IV SCH (16:05)
[2020-08-07 19:13] LABS: OCCULT BLOOD POSITIVE (NEGATIVE)
[2020-08-07 20:20] VITALS: BP 81/57
[2020-08-07 20:23] VITALS: BP 90/58
[2020-08-07] MEDS ORDERED: SODIUM CHLORIDE 0.9%, 500ML IVBOLUS ONE (21:00)
[2020-08-07 21:51] VITALS: BP 95/61
[2020-08-08] VITALS (7 sets, daily range): BP systolic 120–130; BP diastolic 68–82
[2020-08-08] MEDS: ACETAMINOPHEN 325 MG TABLET PO PRN ×2 (01:52→12:08)
[2020-08-08] MEDS: VANCOMYCIN 1,000 MG in SODIUM CHLORIDE 0.9% 100 ML IV SCH ×2 (03:56→16:25)
[2020-08-08] MEDS: PIPERACILLIN/TAZO 3.375 GM in DEXTROSE 5% 50 ML IV SCH ×3 (05:34→18:09)
[2020-08-08] MEDS: NS + 20MEQ KCL 1,000 ML IV SCH (05:41)
[2020-08-08 05:59] LABS: BASOPHILS % (AUTO) 1 % (0-1); EOSINOPHILS % (AUTO) 1 % (1-7); LYMPHOCYTES % (AUTO) 9 % (22-44); MEAN CORPUSCULAR HEMOGLOBIN 24.9 pg (27.0-34.8); MEAN CORPUSCULAR HGB CONC 30.8 g/dL (32.4-35.8); MEAN PLATELET VOLUME 9.7 fL (7.4-10.4); MONOCYTES % (AUTO) 7 % (2-9); NEUTROPHILS % (AUTO) 83 % (42-75); PLATELET COUNT 128 x10^3/uL (130-400); RED BLOOD COUNT 3.07 x10^6/uL (3.82-5.3); RED CELL DISTRIBUTION WIDTH 19.1 % (9.6-15.2)
[2020-08-08 06:00] LABS: MD NO
[2020-08-08 06:06] LABS: CHLORIDE 116 mmol/L (98-107)
[2020-08-08 06:46] LABS: ANION GAP 6 mmol/L (5-15); CALCIUM 7.6 mg/dL (8.5-10.1); CREATININE 0.56 mg/dL (0.55-1.02)
[2020-08-08 07:57] LABS: OCCULT BLOOD POSITIVE (NEGATIVE)
[2020-08-08] MEDS ORDERED: THIAMINE 100 MG in DEXTROSE 5% 50 ML IVPB SCH (09:00)
[2020-08-08] MEDS: SENNA/DOCUSATE TABLET PO SCH ×2 (09:00→10:01)
[2020-08-08] MEDS: THIAMINE 100MG TABLET PO SCH (10:00)
[2020-08-08] MEDS: MULTIVITAMINS/MINERALS TABLET PO SCH (10:00)
[2020-08-08] MEDS: MAGNESIUM CHLORIDE 64 MG TABLET.DR PO SCH ×3 (10:00→20:49)
[2020-08-08] MEDS: PANTOPRAZOLE 40 MG IV IVPush SCH ×2 (10:49→21:50)
[2020-08-08] MEDS: PROMETHAZINE 25 MG/ML, 1ML IM PRN (12:08)
[2020-08-08] MEDS: ENOXAPARIN 40 MG/0.4 ML SQ SCH (16:00)
[2020-08-08] MEDS ORDERED: MOVIPREP POWDER 1 PREP KIT PO ONE (18:00)
[2020-08-09] MEDS: PIPERACILLIN/TAZO 3.375 GM in DEXTROSE 5% 50 ML IV SCH ×4 (00:18→20:16)
[2020-08-09 00:46] VITALS: BP 139/86
[2020-08-09] MEDS: VANCOMYCIN 1,000 MG in SODIUM CHLORIDE 0.9% 100 ML IV SCH ×2 (04:13→16:24)
[2020-08-09] MEDS: NS + 20MEQ KCL 1,000 ML IV SCH ×2 (04:13→23:42)
[2020-08-09 06:30] LABS: BASOPHILS % (AUTO) 1 % (0-1); EOSINOPHILS % (AUTO) 1 % (1-7); LYMPHOCYTES % (AUTO) 19 % (22-44); MEAN CORPUSCULAR HEMOGLOBIN 25.8 pg (27.0-34.8); MEAN CORPUSCULAR HGB CONC 31.5 g/dL (32.4-35.8); MEAN PLATELET VOLUME 9.7 fL (7.4-10.4); MONOCYTES % (AUTO) 11 % (2-9); NEUTROPHILS % (AUTO) 68 % (42-75); PLATELET COUNT 117 x10^3/uL (130-400); RED BLOOD COUNT 3.34 x10^6/uL (3.82-5.3); RED CELL DISTRIBUTION WIDTH 18.6 % (9.6-15.2)
[2020-08-09 06:37] LABS: CALCIUM 7.4 mg/dL (8.5-10.1); CREATININE 0.45 mg/dL (0.55-1.02)
[2020-08-09 06:54] LABS: ANION GAP 6 mmol/L (5-15); CHLORIDE 117 mmol/L (98-107)
[2020-08-09 07:22] LABS: MD SCAN
[2020-08-09] MEDS ORDERED: CHLORHEXIDINE 15 ML UDC ONE (07:54)
[2020-08-09 08:07] VITALS: BP 122/71
[2020-08-09] MEDS ORDERED: PROPOFOL 50 ML ONE (08:18)
[2020-08-09] MEDS ORDERED: FENTANYL PF 100 MCG/2ML IV PRN (09:00)
[2020-08-09] MEDS ORDERED: ALBUTEROL SULFATE 2.5 MG/3 ML NPPB PRN (09:00)
[2020-08-09] MEDS ORDERED: LABETALOL 5MG/ML, 20ML IV PRN (09:00)
[2020-08-09] MEDS: SENNA/DOCUSATE TABLET PO SCH (09:00)
[2020-08-09] MEDS ORDERED: ONDANSETRON 2MG/ML, 2ML IVPush PRN (09:00)
[2020-08-09] MEDS ORDERED: OXYcodone 5 MG/5 ML ORAL.SOL UDC PO PRN (09:00)
[2020-08-09] MEDS ORDERED: MIDAZOLAM 1 MG/ML, 2ML IV PRN (09:00)
[2020-08-09] MEDS ORDERED: POTASSIUM CHLORIDE 40 MEQ in SODIUM CHLORIDE 0.9% 500 ML IV ONE (09:30)
[2020-08-09] MEDS: PANTOPRAZOLE 40 MG IV IVPush SCH ×2 (11:25→23:41)
[2020-08-09] MEDS: MAGNESIUM CHLORIDE 64 MG TABLET.DR PO SCH ×2 (11:26→16:24)
[2020-08-09] MEDS: MULTIVITAMINS/MINERALS TABLET PO SCH (11:26)
[2020-08-09] MEDS: THIAMINE 100MG TABLET PO SCH (11:26)
[2020-08-09] MEDS: PROMETHAZINE 25 MG/ML, 1ML IM PRN (11:26)
[2020-08-09 12:10] VITALS: BP 126/76
[2020-08-09] MEDS: ACETAMINOPHEN 325 MG TABLET PO PRN (16:24)
[2020-08-09] MEDS: ENOXAPARIN 40 MG/0.4 ML SQ SCH (16:26)
[2020-08-09 19:02] VITALS: BP 147/83
[2020-08-09 21:54] LABS: AMPHETAMINE SCREEN, URINE Negative (Negative); BARBITURATE SCREEN, URINE Negative (Negative); BENZODIAZEPINE SCREEN, URINE Negative (Negative); CANNABINOID SCREEN, URINE Negative (Negative); COCAINE SCREEN, URINE Negative (Negative); METHADONE SCREEN, URINE Negative (Negative); OPIATE SCREEN, URINE Positive (Negative)
[2020-08-10] MEDS: PIPERACILLIN/TAZO 3.375 GM in DEXTROSE 5% 50 ML IV SCH ×4 (00:13→22:41)
[2020-08-10 00:43] LABS: MEAN CORPUSCULAR HEMOGLOBIN 25.9 pg (27.0-34.8); MEAN CORPUSCULAR HGB CONC 31.8 g/dL (32.4-35.8); PLATELET COUNT 136 x10^3/uL (130-400); RED BLOOD COUNT 3.39 x10^6/uL (3.82-5.3); RED CELL DISTRIBUTION WIDTH 18.5 % (9.6-15.2)
[2020-08-10 00:48] LABS: ANION GAP 9 mmol/L (5-15); CALCIUM 7.5 mg/dL (8.5-10.1); CHLORIDE 113 mmol/L (98-107)
[2020-08-10 00:52] LABS: CREATININE 0.46 mg/dL (0.55-1.02)
[2020-08-10 00:54] VITALS: BP 171/90
[2020-08-10 01:20] VITALS: BP 165/89
[2020-08-10 01:30] LABS: MD YES
[2020-08-10 01:32] LABS: BAND#(MANUAL) 0.09 x10^3/uL; BANDS%(MANUAL) 1 % (0-7); BASOS#(MANUAL) 0.09 x10^3/uL (0-0.1); BASOS% (MANUAL) 1 % (0-1); LYMPH#(MANUAL) 1.12 x10^3/uL (1-3.4); LYMPHS% (MANUAL) 12 % (22-44); METAMYELOCYTES# (MANUAL) 0.09 x10^3/uL (0-0); METAMYELOCYTES% (MANUAL) 1 % (0-1); MONOS#(MANUAL) 0.93 x10^3/uL (0.3-2.7); MONOS% (MANUAL) 10 % (2-9); MYELOCYTES# (MANUAL) 0.19 x10^3/uL (0-0); MYELOCYTES% (MANUAL) 2 % (0-0); SEGS% (MANUAL) 72 % (42-75)
[2020-08-10 01:33] LABS: OTHER CELLS # (MANUAL) 0.09 x10^3/uL (0-0); OTHER CELLS % (MANUAL) 1 % (0-0)
[2020-08-10 01:34] LABS: ANISOCYTOSIS 1+; HYPOCHROMIA 1+; OVALOCYTES 1+
[2020-08-10 01:35] LABS: <PLATELET ESTIMATE> ADEQUATE
[2020-08-10 01:36] LABS: <PLT MORPHOLOGY> NORMAL PLT MORPH
[2020-08-10] MEDS: VANCOMYCIN 1,000 MG in SODIUM CHLORIDE 0.9% 100 ML IV SCH ×2 (04:20→16:36)
[2020-08-10] MEDS: LORazepam 1MG TABLET PO PRN (04:33)
[2020-08-10] MEDS: PROMETHAZINE 25 MG/ML, 1ML IM PRN (06:12)
[2020-08-10 08:15] VITALS: BP 163/79
[2020-08-10] MEDS ORDERED: MAGNESIUM SULFATE PMX 4GM/100M 100 ML IV ONE (08:30)
[2020-08-10] MEDS ORDERED: POTASSIUM CHLORIDE 40 MEQ in SODIUM CHLORIDE 0.9% 500 ML IV ONE (08:30)
[2020-08-10] MEDS: SENNA/DOCUSATE TABLET PO SCH (08:32)
[2020-08-10] MEDS: THIAMINE 100MG TABLET PO SCH (08:46)
[2020-08-10] MEDS: MULTIVITAMINS/MINERALS TABLET PO SCH (08:46)
[2020-08-10] MEDS: PANTOPRAZOLE 40 MG IV IVPush SCH ×2 (12:14→22:42)
[2020-08-10 13:10] VITALS: BP 148/83
[2020-08-10] MEDS: methylPREDNISolone SOD SUCC 40 MG/ML IV SCH (16:35)
[2020-08-10] MEDS: ENOXAPARIN 40 MG/0.4 ML SQ SCH (16:36)
[2020-08-10 16:46] VITALS: BP 165/86
[2020-08-10] MEDS ORDERED: methylPREDNISolone SOD SUCC 125 MG/2 ML IV ONE (17:30)
[2020-08-10] MEDS: PROPOFOL 100 ML IV PRN (19:30)
[2020-08-10] MEDS ORDERED: PANTOPRAZOLE 40MG TABLET PO SCH (21:00)
[2020-08-10] MEDS: NS + 20MEQ KCL 1,000 ML IV SCH (21:12)
[2020-08-10] MEDS ORDERED: PHARMACY MAY ADJ FOR RENAL FX MC SCH (22:00)
[2020-08-10] MEDS ORDERED: LACTULOSE 20 GM/30 ML UDC NG PRN (22:00)
[2020-08-10] MEDS ORDERED: SENNA/DOCUSATE TABLET NG PRN (22:00)
[2020-08-10] MEDS ORDERED: BISACODYL 10 MG SUPP PR PRN (22:00)
[2020-08-10] MEDS ORDERED: SENNA 176 MG/5 ML ORAL SOL NG PRN (22:00)
[2020-08-10] MEDS ORDERED: LIDOCAINE-MPF 1%, 2ML ENDO PRN (22:00)
[2020-08-10] MEDS: THIAMINE 100 MG in SODIUM CHLORIDE 0.9% 50 ML IV SCH (22:47)
[2020-08-11] MEDS: PROPOFOL 100 ML IV PRN ×6 (00:02→23:56)
[2020-08-11] MEDS: methylPREDNISolone SOD SUCC 40 MG/ML IV SCH ×4 (00:02→23:56)
[2020-08-11] MEDS: PIPERACILLIN/TAZO 3.375 GM in DEXTROSE 5% 50 ML IV SCH ×4 (03:20→22:20)
[2020-08-11 03:42] LABS: BASOPHILS % (AUTO) 0 % (0-1); EOSINOPHILS % (AUTO) 0 % (1-7); LYMPHOCYTES % (AUTO) 19 % (22-44); MEAN CORPUSCULAR HEMOGLOBIN 25.4 pg (27.0-34.8); MEAN CORPUSCULAR HGB CONC 31.5 g/dL (32.4-35.8); MEAN PLATELET VOLUME 10.2 fL (7.4-10.4); MONOCYTES % (AUTO) 2 % (2-9); NEUTROPHILS % (AUTO) 78 % (42-75); PLATELET COUNT 183 x10^3/uL (130-400); RED BLOOD COUNT 3.75 x10^6/uL (3.82-5.3); RED CELL DISTRIBUTION WIDTH 19.1 % (9.6-15.2)
[2020-08-11 03:54] LABS: ANION GAP 10 mmol/L (5-15); CALCIUM 7.4 mg/dL (8.5-10.1); CHLORIDE 111 mmol/L (98-107); CREATININE 0.27 mg/dL (0.55-1.02)
[2020-08-11 04:12] LABS: MD SCAN
[2020-08-11] MEDS: FENTANYL PF 1,000 MCG in SODIUM CHLORIDE 0.9% 80 ML IV PRN ×2 (04:35→22:38)
[2020-08-11] MEDS: VANCOMYCIN 1,000 MG in SODIUM CHLORIDE 0.9% 100 ML IV SCH ×2 (04:36→17:52)
[2020-08-11] MEDS: MULTIVITAMINS/MINERALS TABLET PO SCH (08:48)
[2020-08-11] MEDS: PANTOPRAZOLE 40 MG IV IVPush SCH ×2 (08:48→22:26)
[2020-08-11] MEDS: SENNA/DOCUSATE TABLET PO SCH (08:48)
--- NOTE | 2020-08-11 09:54 | NUR ---
TF per RD recs: Promote w/ end goal rate of 55mL/hr (on propofol); 65mL/hr (OFF propofol). Addendum: 08/11/20 at [address] Amended: Links added.
[2020-08-11] MEDS: POTASSIUM CHLORIDE 20 MEQ PACKET NG SCH ×2 (10:37→22:26)
[2020-08-11] MEDS: SODIUM CHLORIDE 0.9% 1,000 ML IV SCH ×2 (10:37→23:56)
[2020-08-11] MEDS: ENOXAPARIN 40 MG/0.4 ML SQ SCH (16:31)
[2020-08-11] MEDS ORDERED: SODIUM CHLORIDE 0.9%, 500ML IVBOLUS ONE (17:30)
[2020-08-11] MEDS: THIAMINE 100 MG in SODIUM CHLORIDE 0.9% 50 ML IV SCH (22:20)
[2020-08-12] MEDS: PIPERACILLIN/TAZO 3.375 GM in DEXTROSE 5% 50 ML IV SCH ×4 (01:53→20:54)
[2020-08-12] MEDS ORDERED: SODIUM CHLORIDE 0.9% 500 ML IV ONE (02:00)
[2020-08-12] MEDS ORDERED: ROCURONIUM 10MG/ML,5ML ONE (02:42)
[2020-08-12] MEDS ORDERED: PROPOFOL 10 MG/ML, 100ML IV ONE (02:42)
[2020-08-12] MEDS ORDERED: PROPOFOL 10 MG/ML, 20ML ONE (02:42)
[2020-08-12] MEDS ORDERED: MIDAZOLAM 1 MG/ML, 5ML ONE (02:42)
[2020-08-12 03:23] LABS: BASOPHILS % (AUTO) 0 % (0-1); EOSINOPHILS % (AUTO) 0 % (1-7); LYMPHOCYTES % (AUTO) 10 % (22-44); MEAN CORPUSCULAR HEMOGLOBIN 25.7 pg (27.0-34.8); MEAN CORPUSCULAR HGB CONC 32.1 g/dL (32.4-35.8); MEAN PLATELET VOLUME 10.3 fL (7.4-10.4); MONOCYTES % (AUTO) 6 % (2-9); NEUTROPHILS % (AUTO) 84 % (42-75); PLATELET COUNT 273 x10^3/uL (130-400); RED BLOOD COUNT 3.67 x10^6/uL (3.82-5.3); RED CELL DISTRIBUTION WIDTH 19.3 % (9.6-15.2)
[2020-08-12 03:27] LABS: ANION GAP 7 mmol/L (5-15); CALCIUM 7.1 mg/dL (8.5-10.1); CHLORIDE 115 mmol/L (98-107); CREATININE 0.43 mg/dL (0.55-1.02); MD NO
[2020-08-12] MEDS: VANCOMYCIN 1,000 MG in SODIUM CHLORIDE 0.9% 100 ML IV SCH ×2 (03:33→16:47)
[2020-08-12] MEDS: PROPOFOL 100 ML IV PRN ×4 (04:19→22:42)
[2020-08-12] MEDS: methylPREDNISolone SOD SUCC 40 MG/ML IV SCH ×3 (07:50→23:33)
[2020-08-12] MEDS: MULTIVITAMINS/MINERALS TABLET PO SCH (07:51)
[2020-08-12] MEDS: PANTOPRAZOLE 40 MG IV IVPush SCH ×2 (07:51→21:41)
[2020-08-12] MEDS: SENNA/DOCUSATE TABLET PO SCH (07:51)
[2020-08-12] MEDS ORDERED: MAGNESIUM SULFATE PMX 2GM/50ML 50 ML IV ONE (09:00)
[2020-08-12] MEDS: FENTANYL PF 1,000 MCG in SODIUM CHLORIDE 0.9% 80 ML IV PRN ×2 (11:07→21:03)
[2020-08-12] MEDS: SODIUM CHLORIDE 0.9% 1,000 ML IV SCH ×2 (15:13→23:33)
[2020-08-12] MEDS: ENOXAPARIN 40 MG/0.4 ML SQ SCH (15:42)
[2020-08-12] MEDS ORDERED: FUROSEMIDE 40 MG/4 ML IV ONE (18:00)
[2020-08-12] MEDS ORDERED: FUROSEMIDE 40 MG/4 ML ONE (18:05)
[2020-08-12] MEDS: THIAMINE 100 MG in SODIUM CHLORIDE 0.9% 50 ML IV SCH (21:05)
[2020-08-13] MEDS: PIPERACILLIN/TAZO 3.375 GM in DEXTROSE 5% 50 ML IV SCH ×4 (03:09→20:05)
[2020-08-13 04:56] LABS: BASOPHILS % (AUTO) 0 % (0-1); EOSINOPHILS % (AUTO) 0 % (1-7); LYMPHOCYTES % (AUTO) 10 % (22-44); MEAN CORPUSCULAR HEMOGLOBIN 25.3 pg (27.0-34.8); MEAN CORPUSCULAR HGB CONC 31.3 g/dL (32.4-35.8); MONOCYTES % (AUTO) 3 % (2-9); NEUTROPHILS % (AUTO) 86 % (42-75); PLATELET COUNT 283 x10^3/uL (130-400); RED BLOOD COUNT 3.54 x10^6/uL (3.82-5.3); RED CELL DISTRIBUTION WIDTH 19.6 % (9.6-15.2)
[2020-08-13 05:00] LABS: MD NO
[2020-08-13] MEDS: VANCOMYCIN 1,000 MG in SODIUM CHLORIDE 0.9% 100 ML IV SCH ×2 (05:02→16:00)
[2020-08-13 05:07] LABS: ANION GAP 7 mmol/L (5-15); CALCIUM 6.8 mg/dL (8.5-10.1); CHLORIDE 111 mmol/L (98-107)
[2020-08-13 05:10] LABS: CREATININE 0.54 mg/dL (0.55-1.02); TRIGLYCERIDES 113 mg/dL (50-200)
[2020-08-13] MEDS: PROPOFOL 100 ML IV PRN (07:15)
[2020-08-13] MEDS: methylPREDNISolone SOD SUCC 40 MG/ML IV SCH ×2 (07:16→14:54)
[2020-08-13] MEDS: MULTIVITAMINS/MINERALS TABLET PO SCH (07:17)
[2020-08-13] MEDS: SENNA/DOCUSATE TABLET PO SCH (07:17)
[2020-08-13] MEDS: FENTANYL PF 1,000 MCG in SODIUM CHLORIDE 0.9% 80 ML IV PRN (07:17)
[2020-08-13] MEDS: PANTOPRAZOLE 40 MG IV IVPush SCH ×2 (08:50→20:05)
[2020-08-13] MEDS: HYDROcodone/APAP 5/325 TABLET PO PRN ×2 (14:53→20:06)
[2020-08-13] MEDS: ENOXAPARIN 40 MG/0.4 ML SQ SCH (14:54)
[2020-08-13] MEDS: THIAMINE 100 MG in SODIUM CHLORIDE 0.9% 50 ML IV SCH (20:05)
[2020-08-13] MEDS: PROMETHAZINE 25 MG/ML, 1ML IM PRN (20:07)
[2020-08-13] MEDS: ONDANSETRON 2MG/ML, 2ML IV PRN (22:32)
[2020-08-14] MEDS: methylPREDNISolone SOD SUCC 40 MG/ML IV SCH ×3 (00:14→15:54)
[2020-08-14] MEDS: PROMETHAZINE 25 MG/ML, 1ML IM PRN ×2 (00:14→05:37)
[2020-08-14] MEDS: HYDROcodone/APAP 5/325 TABLET PO PRN ×2 (00:15→05:38)
[2020-08-14] MEDS: PIPERACILLIN/TAZO 3.375 GM in DEXTROSE 5% 50 ML IV SCH ×4 (03:37→21:30)
[2020-08-14] MEDS: VANCOMYCIN 1,000 MG in SODIUM CHLORIDE 0.9% 100 ML IV SCH ×2 (05:04→15:54)
[2020-08-14 06:43] LABS: BASOPHILS % (AUTO) 0 % (0-1); EOSINOPHILS % (AUTO) 0 % (1-7); LYMPHOCYTES % (AUTO) 10 % (22-44); MD NO; MEAN CORPUSCULAR HEMOGLOBIN 25.8 pg (27.0-34.8); MEAN CORPUSCULAR HGB CONC 31.7 g/dL (32.4-35.8); MEAN PLATELET VOLUME 10.5 fL (7.4-10.4); MONOCYTES % (AUTO) 3 % (2-9); NEUTROPHILS % (AUTO) 86 % (42-75); PLATELET COUNT 280 x10^3/uL (130-400); RED BLOOD COUNT 3.11 x10^6/uL (3.82-5.3); RED CELL DISTRIBUTION WIDTH 19.6 % (9.6-15.2)
[2020-08-14 06:54] LABS: ANION GAP 8 mmol/L (5-15); CALCIUM 7.2 mg/dL (8.5-10.1); CHLORIDE 114 mmol/L (98-107); CREATININE 0.39 mg/dL (0.55-1.02)
[2020-08-14] MEDS ORDERED: MAGNESIUM SULFATE PMX 2GM/50ML 50 ML IV ONE (08:00)
[2020-08-14] MEDS ORDERED: POTASSIUM CHLORIDE 20 MEQ PACKET PO SCH (08:00)
[2020-08-14] MEDS: SENNA/DOCUSATE TABLET PO SCH (09:00)
[2020-08-14] MEDS ORDERED: POTASSIUM CHLORIDE 20 MEQ PACKET PO ONE (09:30)
[2020-08-14 09:55] LABS: TROPONIN I 0.138 ng/mL (0.000-0.045)
[2020-08-14] MEDS: FUROSEMIDE 40 MG/4 ML IV SCH ×2 (10:16→21:31)
[2020-08-14] MEDS: MAGNESIUM OXIDE 400 MG TABLET PO SCH (10:38)
[2020-08-14] MEDS: MULTIVITAMINS/MINERALS TABLET PO SCH (10:38)
[2020-08-14] MEDS: PANTOPRAZOLE 40 MG IV IVPush SCH ×2 (10:38→21:30)
[2020-08-14] MEDS ORDERED: LIDOCAINE-MPF 1%, 2ML ENDO PRN (11:00)
[2020-08-14] MEDS ORDERED: ROCURONIUM 10 MG/ML,10ML IVPush ONE (11:30)
[2020-08-14] MEDS ORDERED: PROPOFOL 10 MG/ML, 20ML IV ONE (11:30)
[2020-08-14] MEDS: PROPOFOL 100 ML IV PRN ×3 (11:30→21:30)
[2020-08-14] MEDS: ENOXAPARIN 40 MG/0.4 ML SQ SCH (15:53)
[2020-08-14] MEDS: POTASSIUM CHLORIDE 20 MEQ PACKET PO SCH ×2 (15:53→21:30)
[2020-08-14 16:46] LABS: TROPONIN I 0.166 ng/mL (0.000-0.045)
[2020-08-14] MEDS: THIAMINE 100 MG in SODIUM CHLORIDE 0.9% 50 ML IV SCH (21:30)
[2020-08-14 23:33] LABS: TROPONIN I 0.145 ng/mL (0.000-0.045)
[2020-08-15] MEDS: methylPREDNISolone SOD SUCC 40 MG/ML IV SCH ×3 (00:07→15:39)
[2020-08-15] MEDS: PIPERACILLIN/TAZO 3.375 GM in DEXTROSE 5% 50 ML IV SCH ×2 (03:38→08:58)
[2020-08-15] MEDS: VANCOMYCIN 1,000 MG in SODIUM CHLORIDE 0.9% 100 ML IV SCH (03:39)
[2020-08-15 04:36] LABS: ANION GAP 7 mmol/L (5-15); CALCIUM 7.6 mg/dL (8.5-10.1); CHLORIDE 106 mmol/L (98-107); CREATININE 0.43 mg/dL (0.55-1.02)
[2020-08-15 04:43] LABS: BASOPHILS % (AUTO) 0 % (0-1); EOSINOPHILS % (AUTO) 0 % (1-7); LYMPHOCYTES % (AUTO) 10 % (22-44); MEAN CORPUSCULAR HEMOGLOBIN 25.7 pg (27.0-34.8); MEAN CORPUSCULAR HGB CONC 32.3 g/dL (32.4-35.8); MEAN PLATELET VOLUME 9.9 fL (7.4-10.4); MONOCYTES % (AUTO) 4 % (2-9); NEUTROPHILS % (AUTO) 86 % (42-75); PLATELET COUNT 267 x10^3/uL (130-400); RED BLOOD COUNT 3.45 x10^6/uL (3.82-5.3); RED CELL DISTRIBUTION WIDTH 19.7 % (9.6-15.2)
[2020-08-15 04:49] LABS: MD NO
[2020-08-15] MEDS ORDERED: POTASSIUM CHLORIDE 20 MEQ TAB.ER.PRT PO ONE (07:00)
[2020-08-15] MEDS: SENNA/DOCUSATE TABLET PO SCH (08:18)
[2020-08-15] MEDS: MULTIVITAMINS/MINERALS TABLET PO SCH (09:00)
[2020-08-15] MEDS: FUROSEMIDE 40 MG/4 ML IV SCH ×2 (09:04→21:08)
[2020-08-15] MEDS: MAGNESIUM OXIDE 400 MG TABLET PO SCH (09:04)
[2020-08-15] MEDS: PANTOPRAZOLE 40 MG IV IVPush SCH ×2 (09:04→21:08)
[2020-08-15] MEDS: CEFTRIAXONE 2 GM in DEXTROSE 5% 50 ML IVPB SCH (10:57)
[2020-08-15] MEDS: PROPOFOL 100 ML IV PRN (13:54)
[2020-08-15] MEDS: ENOXAPARIN 40 MG/0.4 ML SQ SCH (15:40)
[2020-08-15] MEDS: MIDAZOLAM HCL 50 MG in SODIUM CHLORIDE 0.9% 40 ML IV PRN (16:44)
[2020-08-15] MEDS: FENTANYL PF 1,000 MCG in SODIUM CHLORIDE 0.9% 80 ML IV PRN (16:49)
[2020-08-15] MEDS ORDERED: CALCIUM GLUCONATE 4.6 MEQ in SODIUM CHLORIDE 0.9% 100 ML IV ONE (17:30)
[2020-08-15 17:32] LABS: ANION GAP 7 mmol/L (5-15); CALCIUM 7.5 mg/dL (8.5-10.1); CHLORIDE 103 mmol/L (98-107); CREATININE 0.53 mg/dL (0.55-1.02)
[2020-08-15] MEDS: KSCALE TO 4.5 IV SCH (17:47)
[2020-08-15] MEDS ORDERED: METOPROLOL TARTRATE 25 MG TAB PO SCH (18:00)
[2020-08-15] MEDS ORDERED: POTASSIUM CHLORIDE 40 MEQ in SODIUM CHLORIDE 0.9% 100 ML IV ONE (18:00)
[2020-08-15] MEDS ORDERED: ROCURONIUM 10MG/ML,5ML ONE (19:41)
[2020-08-15] MEDS ORDERED: PROPOFOL 10 MG/ML, 100ML IV ONE (19:41)
[2020-08-15] MEDS: ATORVASTATIN 40 MG TABLET PO SCH (21:08)
[2020-08-15] MEDS: THIAMINE 100 MG in SODIUM CHLORIDE 0.9% 50 ML IV SCH (21:09)
[2020-08-16] MEDS ORDERED: POTASSIUM CHLORIDE PMX 100 ML IV ONE (00:30)
[2020-08-16] MEDS: methylPREDNISolone SOD SUCC 40 MG/ML IV SCH ×3 (00:56→16:08)
[2020-08-16] MEDS: MIDAZOLAM HCL 50 MG in SODIUM CHLORIDE 0.9% 40 ML IV PRN (05:31)
[2020-08-16 05:35] LABS: BASOPHILS % (AUTO) 0 % (0-1); EOSINOPHILS % (AUTO) 0 % (1-7); LYMPHOCYTES % (AUTO) 10 % (22-44); MEAN CORPUSCULAR HEMOGLOBIN 25.9 pg (27.0-34.8); MEAN PLATELET VOLUME 9.5 fL (7.4-10.4); MONOCYTES % (AUTO) 5 % (2-9); NEUTROPHILS % (AUTO) 85 % (42-75); PLATELET COUNT 294 x10^3/uL (130-400); RED CELL DISTRIBUTION WIDTH 20.1 % (9.6-15.2)
[2020-08-16 05:37] LABS: CALCIUM 7.5 mg/dL (8.5-10.1); CHLORIDE 104 mmol/L (98-107)
[2020-08-16 05:38] LABS: MD NO
[2020-08-16 05:41] LABS: ANION GAP 6 mmol/L (5-15); CREATININE 0.53 mg/dL (0.55-1.02); TRIGLYCERIDES 84 mg/dL (50-200)
[2020-08-16] MEDS: KSCALE TO 4.5 IV SCH ×2 (06:00)
[2020-08-16] MEDS: INSULIN LISPRO 100 UNITS/ML, PEN SQ-INSULIN SCH ×4 (08:02→20:49)
[2020-08-16] MEDS: POTASSIUM CHLORIDE 20 MEQ PACKET PO SCH (09:38)
[2020-08-16] MEDS: MULTIVITAMINS/MINERALS TABLET PO SCH (09:38)
[2020-08-16] MEDS: MAGNESIUM OXIDE 400 MG TABLET PO SCH (09:38)
[2020-08-16] MEDS: FUROSEMIDE 40 MG/4 ML IV SCH ×2 (09:38→20:49)
[2020-08-16] MEDS: PANTOPRAZOLE 40 MG IV IVPush SCH ×2 (09:38→20:49)
[2020-08-16] MEDS: CEFTRIAXONE 2 GM in DEXTROSE 5% 50 ML IVPB SCH (10:44)
[2020-08-16] MEDS: ENOXAPARIN 40 MG/0.4 ML SQ SCH (16:09)
[2020-08-16] MEDS: ATORVASTATIN 40 MG TABLET PO SCH (20:30)
[2020-08-16] MEDS: HYDROcodone/APAP 5/325 TABLET PO PRN (20:37)
[2020-08-16] MEDS: THIAMINE 100 MG in SODIUM CHLORIDE 0.9% 50 ML IV SCH (21:15)
[2020-08-17] MEDS: methylPREDNISolone SOD SUCC 40 MG/ML IV SCH ×3 (00:09→20:11)
[2020-08-17] MEDS: HYDROcodone/APAP 5/325 TABLET PO PRN ×2 (00:09→18:29)
[2020-08-17 04:15] LABS: BASOPHILS % (AUTO) 0 % (0-1); EOSINOPHILS % (AUTO) 0 % (1-7); LYMPHOCYTES % (AUTO) 9 % (22-44); MEAN CORPUSCULAR HEMOGLOBIN 25.6 pg (27.0-34.8); MEAN CORPUSCULAR HGB CONC 31.9 g/dL (32.4-35.8); MEAN PLATELET VOLUME 9.7 fL (7.4-10.4); MONOCYTES % (AUTO) 3 % (2-9); NEUTROPHILS % (AUTO) 88 % (42-75); PLATELET COUNT 314 x10^3/uL (130-400)
[2020-08-17 04:16] LABS: MD NO
[2020-08-17 04:27] LABS: ANION GAP 9 mmol/L (5-15); CALCIUM 7.4 mg/dL (8.5-10.1); CHLORIDE 102 mmol/L (98-107); CREATININE 0.63 mg/dL (0.55-1.02); TRIGLYCERIDES 60 mg/dL (50-200)
[2020-08-17] MEDS: INSULIN LISPRO 100 UNITS/ML, PEN SQ-INSULIN SCH ×4 (07:00→20:12)
[2020-08-17] MEDS ORDERED: MAGNESIUM SULFATE PMX 2GM/50ML 50 ML IV ONE (07:00)
[2020-08-17] MEDS: FUROSEMIDE 40 MG/4 ML IV SCH (08:40)
[2020-08-17] MEDS: MULTIVITAMINS/MINERALS TABLET PO SCH (08:40)
[2020-08-17] MEDS: MAGNESIUM OXIDE 400 MG TABLET PO SCH (08:40)
[2020-08-17] MEDS: PANTOPRAZOLE 40 MG IV IVPush SCH ×2 (08:40→20:11)
[2020-08-17] MEDS: POTASSIUM CHLORIDE 20 MEQ PACKET PO SCH (08:40)
[2020-08-17] MEDS: CEFTRIAXONE 2 GM in DEXTROSE 5% 50 ML IVPB SCH (10:06)
[2020-08-17 13:00] VITALS: BP 142/88
[2020-08-17] MEDS: ENOXAPARIN 40 MG/0.4 ML SQ SCH (16:12)
[2020-08-17 18:42] VITALS: BP 133/78
[2020-08-17] MEDS: THIAMINE 100 MG in SODIUM CHLORIDE 0.9% 50 ML IV SCH (20:11)
[2020-08-17] MEDS: ATORVASTATIN 40 MG TABLET PO SCH (20:12)
[2020-08-18 00:11] VITALS: BP 145/77
[2020-08-18 04:22] LABS: BASOPHILS % (AUTO) 0 % (0-1); EOSINOPHILS % (AUTO) 0 % (1-7); LYMPHOCYTES % (AUTO) 20 % (22-44); MD NO; MEAN CORPUSCULAR HGB CONC 31.9 g/dL (32.4-35.8); MEAN PLATELET VOLUME 9.7 fL (7.4-10.4); MONOCYTES % (AUTO) 6 % (2-9); NEUTROPHILS % (AUTO) 74 % (42-75); PLATELET COUNT 326 x10^3/uL (130-400); RED BLOOD COUNT 3.27 x10^6/uL (3.82-5.3); RED CELL DISTRIBUTION WIDTH 20.6 % (9.6-15.2)
[2020-08-18 04:30] LABS: ANION GAP 6 mmol/L (5-15); CALCIUM 7.7 mg/dL (8.5-10.1); CHLORIDE 104 mmol/L (98-107)
[2020-08-18 06:35] VITALS: BP 154/83
[2020-08-18] MEDS: INSULIN LISPRO 100 UNITS/ML, PEN SQ-INSULIN SCH ×3 (07:00→16:00)
[2020-08-18] MEDS ORDERED: POTASSIUM CHLORIDE 20 MEQ TAB.ER.PRT PO ONE (07:30)
[2020-08-18] MEDS: FUROSEMIDE 40 MG/4 ML IV SCH (08:31)
[2020-08-18] MEDS: methylPREDNISolone SOD SUCC 40 MG/ML IV SCH (08:31)
[2020-08-18] MEDS: MULTIVITAMINS/MINERALS TABLET PO SCH (08:31)
[2020-08-18] MEDS: MAGNESIUM OXIDE 400 MG TABLET PO SCH (08:31)
[2020-08-18] MEDS: PANTOPRAZOLE 40 MG IV IVPush SCH (08:31)
[2020-08-18] MEDS: HYDROcodone/APAP 5/325 TABLET PO PRN (08:32)
[2020-08-18] MEDS: POTASSIUM CHLORIDE 20 MEQ PACKET PO SCH (09:00)
[2020-08-18] MEDS: CEFTRIAXONE 2 GM in DEXTROSE 5% 50 ML IVPB SCH (11:06)
[2020-08-18 13:46] VITALS: BP 121/73
[2020-08-18] MEDS ORDERED: PRED20TA PO ×3 (15:54→17:22)
[2020-08-18] MEDS ORDERED: ATOR40TA78 PO (15:54)
[2020-08-18] MEDS ORDERED: FURO40TA6 PO ×2 (15:54)
[2020-08-18] MEDS ORDERED: POTA20PA25 PO ×2 (15:54)
[2020-08-18] MEDS: ENOXAPARIN 40 MG/0.4 ML SQ SCH (16:00)
== END 2020-08-18 19:33 | disposition home or self-care (01) | DRG 871 ==
LOC: ED 12:09 → EDIP 13:07 → 4WST 14:25 → CCU 08-10 17:34 → ICU 08-12 09:48 → 3N 08-17 11:00
PROVIDERS: ADMIT Internal Medicine; ATTEND Family Medicine
PROC: 30233N1 Transfusion of Nonautologous Red Blood Cells into Peripheral Vein, Percutaneous Approach (ICD-10-PCS; principal; 2020-08-08)
PROC: 0DJD8ZZ Inspection of Lower Intestinal Tract, Via Natural or Artificial Opening Endoscopic (ICD-10-PCS; 2020-08-09)
PROC: 0DJ08ZZ Inspection of Upper Intestinal Tract, Via Natural or Artificial Opening Endoscopic (ICD-10-PCS; 2020-08-09)
PROC: 0BH17EZ Insertion of Endotracheal Airway into Trachea, Via Natural or Artificial Opening (ICD-10-PCS; 2020-08-10)
PROC: 5A1945Z Respiratory Ventilation, 24-96 Consecutive Hours (ICD-10-PCS; 2020-08-10)
PROC: 02HV33Z Insertion of Infusion Device into Superior Vena Cava, Percutaneous Approach (ICD-10-PCS; 2020-08-10)
PROC: 0BH17EZ Insertion of Endotracheal Airway into Trachea, Via Natural or Artificial Opening (ICD-10-PCS; 2020-08-14)
PROC: 5A1945Z Respiratory Ventilation, 24-96 Consecutive Hours (ICD-10-PCS; 2020-08-14)
DX: A41.9 Sepsis, unspecified organism (principal); E43 Unspecified severe protein-calorie malnutrition; G93.41 Metabolic encephalopathy; I21.A1 Myocardial infarction type 2; J18.9 Pneumonia, unspecified organism; J96.01 Acute respiratory failure with hypoxia; R65.21 Severe sepsis with septic shock; I50.33 Acute on chronic diastolic (congestive) heart failure; E87.2 Acidosis; F10.139 Alcohol abuse with withdrawal, unspecified; Z99.11 Dependence on respirator [ventilator] status; L03.115 Cellulitis of right lower limb; D50.9 Iron deficiency anemia, unspecified; E87.6 Hypokalemia; F11.10 Opioid abuse, uncomplicated; F17.210 Nicotine dependence, cigarettes, uncomplicated; G89.29 Other chronic pain; I25.2 Old myocardial infarction; I11.0 Hypertensive heart disease with heart failure; I95.0 Idiopathic hypotension; K02.9 Dental caries, unspecified; K44.9 Diaphragmatic hernia without obstruction or gangrene; K57.30 Diverticulosis of large intestine without perforation or abscess without bleeding; M40.209 Unspecified kyphosis, site unspecified; Z80.1 Family history of malignant neoplasm of trachea, bronchus and lung; Z87.11 Personal history of peptic ulcer disease; Z90.49 Acquired absence of other specified parts of digestive tract; Z90.710 Acquired absence of both cervix and uterus; Z20.822 Contact with and (suspected) exposure to COVID-19
CPT/HCPCS: 36415; 36600; 70450; 71045; 74022; 80048; 80053; 80202; 80307; 81003; 82140; 82272; 82607; 82728; 82803; 82962; 83540; 83550; 83605; 83690; 83735; 84100; 84132; 84145; 84478; 84484; 85014; 85018; 85025; 85651; 86140; 86850; 86900; 86923; 87040; 87070; 87081; 87205; 87324; 87635; 93005; 93306; 93356; 94002; 94003; 96361; 96374; 96375; G0378; J0610; J0696; J1650; J1940; J2250; J2405; J2543; J2550; J2704; J3010; J3370; J3411; J3480; C9113; J2920; J2930; J3475; J7030; J7040; J7050; P9016; U0003

== ENCOUNTER 2020-08-27 21:52 | Inpatient (IN) | payer MEDICARE ==
[~2020-08-27] VITALS: Ht 162.6 cm; Wt 55.2 kg
[~2020-08-27 21:52] MED LIST changes: +ATOR40TA78 PO; +BUPR1FIL5 TD; +FURO40TA6 PO; +POTA20PA25 PO; +PRED20TA PO
--- NOTE | 2020-08-27 21:55 | NUR ---
INITIAL PT CONTACT. PT BIBA C/O ALTERED MENTAL STATUS. FAMILY CALLED EMS STATING "SHE JUST ALL OF A SUDDEN STARTED ACTING FUNNY AND ALTERED LIKE THIS. SHE WAS RECENTLY HOSPITALISED FOR SAME. IT WAS HER ELECTROLYTES OR A UTI." HX ETOH AND OPIOID ABUSE. A&OX0. PT MUMBLING INAPPROPRIATE WORDS, UNABLE TO CONVERSE WITH STAFF, DOES NOT FOLLOW COMMANDS. PT RESTLESS AND AGITATED IN ROOM, UNABLE TO SIT STILL. PT PLACED ON CONTINUOUS PULSE OX AND CARDIAC MONITORING. EKG COMPLETE UPON ARRIVAL. ERP AT BEDSIDE.
--- NOTE | 2020-08-27 22:16 | NUR ---
TASK RN: ATTEMPTED PIV WITH NO SUCCESS. HOMA RN TO ATTEMPT US PIV.
[2020-08-27] MEDS ORDERED: SODIUM CHLORIDE FLUSH 10ML SYR IVF ONE (22:30)
[2020-08-27 22:52] LABS: ALBUMIN 3.7 g/dL (3.4-5.0); ANION GAP 8 mmol/L (5-15); CALCIUM 8.9 mg/dL (8.5-10.1); CHLORIDE 99 mmol/L (98-107)
[2020-08-27 22:53] LABS: BASOPHILS % (AUTO) 1 % (0-1); EOSINOPHILS % (AUTO) 2 % (1-7); LYMPHOCYTES % (AUTO) 36 % (22-44); MEAN CORPUSCULAR HEMOGLOBIN 26.2 pg (27.0-34.8); MEAN PLATELET VOLUME 8.9 fL (7.4-10.4); MONOCYTES % (AUTO) 6 % (2-9); NEUTROPHILS % (AUTO) 55 % (42-75); PLATELET COUNT 385 x10^3/uL (130-400); RED BLOOD COUNT 3.63 x10^6/uL (3.82-5.3); RED CELL DISTRIBUTION WIDTH 22.1 % (9.6-15.2); SALICYLATE LEVEL < 1.7 mg/dL (2.8-20.0)
[2020-08-27 22:54] LABS: ALANINE AMINOTRANSFERASE 32 U/L (12-78); ALKALINE PHOSPHATASE 97 U/L (45-117); BILIRUBIN,TOTAL 0.9 mg/dL (0.2-1.0); CREATININE 0.79 mg/dL (0.55-1.02); TOTAL PROTEIN 7.8 g/dL (6.4-8.2)
[2020-08-27] MEDS ORDERED: LORazepam 2 MG/ML, 1ML ONE (22:59)
[2020-08-27] MEDS ORDERED: LORazepam 2 MG/ML, 1ML IVPush PRN (23:00)
--- NOTE | 2020-08-27 23:00 | NUR ---
PT INCREASINGLY AGITATED IN ROOM, WILL NOT REMAIN IN BED, CONTINUALLY ATTEMPTING TO GET OUT OF BED. ERP AWARE, PT MEDICATED PER EMAR. SITTER AT BEDSIDE FOR PT SAFETY. WILL CONTINUE TO MONITOR.
[2020-08-27 23:08] LABS: MICROSCOPIC NOT IND
[2020-08-27 23:16] LABS: MD SCAN
[2020-08-27 23:20] LABS: AMPHETAMINE SCREEN, URINE Negative (Negative); BARBITURATE SCREEN, URINE Negative (Negative); BENZODIAZEPINE SCREEN, URINE Negative (Negative); CANNABINOID SCREEN, URINE Negative (Negative); COCAINE SCREEN, URINE Negative (Negative); METHADONE SCREEN, URINE Negative (Negative); OPIATE SCREEN, URINE Positive (Negative)
--- NOTE | 2020-08-27 23:30 | NUR ---
PT SITTING UPRIGHT ON GURNEY SLEEPING. PT O2 SAT AT 87% ON ROOM AIR, PT PLACED ON 2L O2 VIA NASAL CANNULA, O2 SAT NOW 98%. SITTER AT BEDSIDE
--- NOTE | 2020-08-28 00:29 | NUR ---
PT TO CT
--- NOTE | 2020-08-28 01:03 | NUR ---
PT RESTING CALMLY ON GURNEY WITH EYES CLOSED. BOB, OMAR. SITTER REMAINS AT BEDSIDE FOR PT SAFETY. PT DOES NOT HAVE ANY NEEDS AT THIS TIME. CALL LIGHT IN REACH.
[2020-08-28] MEDS ORDERED: NS + 40MEQ KCL 1,000 ML IV ONE (01:15)
--- NOTE | 2020-08-28 01:27 | NUR ---
TASK RN:MEDICATED PER EMAR WITH NS+40K FOR HYPOKALEMIA WITH ASSESSMENT PATIENT RESTING COMFORTABLY ON GURNEY, APPEARS TO BE DEEP ASLEEP. EVEN CHEST RISE NOTED AND VSS ON GREIGE MENDER
[2020-08-28] MEDS ORDERED: SODIUM CHLORIDE FLUSH 10ML SYR IVF PRN (01:30)
[2020-08-28] MEDS ORDERED: NS + 40MEQ KCL 1,000 ML IV SCH (01:30)
[2020-08-28] MEDS ORDERED: DOCUSATE 100 MG CAPSULE PO PRN (02:00)
[2020-08-28] MEDS ORDERED: LORazepam 2 MG/ML, 1ML IV PRN ×3 (02:00)
[2020-08-28] MEDS ORDERED: ACETAMINOPHEN 325 MG TABLET PO PRN (02:00)
[2020-08-28] MEDS ORDERED: hydrALAzine 20 MG/ML, 1ML IVPush PRN (02:00)
[2020-08-28] MEDS ORDERED: ONDANSETRON 2MG/ML, 2ML IVPush PRN (02:00)
--- NOTE | 2020-08-28 02:05 | NUR ---
Pt to be admitted to TELE2, room 411. Report called to
[2020-08-28 02:45] VITALS: BP 135/79
[2020-08-28 05:23] LABS: BASOPHILS % (AUTO) 1 % (0-1); EOSINOPHILS % (AUTO) 4 % (1-7); LYMPHOCYTES % (AUTO) 27 % (22-44); MEAN CORPUSCULAR HEMOGLOBIN 26.8 pg (27.0-34.8); MEAN CORPUSCULAR HGB CONC 32.2 g/dL (32.4-35.8); MEAN PLATELET VOLUME 8.7 fL (7.4-10.4); MONOCYTES % (AUTO) 13 % (2-9); NEUTROPHILS % (AUTO) 56 % (42-75); PLATELET COUNT 288 x10^3/uL (130-400); RED BLOOD COUNT 3.11 x10^6/uL (3.82-5.3); RED CELL DISTRIBUTION WIDTH 21.2 % (9.6-15.2)
[2020-08-28 05:30] LABS: MD NO
[2020-08-28 05:39] LABS: CHLORIDE 106 mmol/L (98-107)
[2020-08-28 05:48] LABS: ALANINE AMINOTRANSFERASE 22 U/L (12-78); ALBUMIN 2.6 g/dL (3.4-5.0); ALKALINE PHOSPHATASE 65 U/L (45-117); ANION GAP 5 mmol/L (5-15); BILIRUBIN,TOTAL 0.6 mg/dL (0.2-1.0); CALCIUM 7.9 mg/dL (8.5-10.1); CREATININE 0.47 mg/dL (0.55-1.02); TOTAL PROTEIN 5.4 g/dL (6.4-8.2)
[2020-08-28 06:18] VITALS: BP 158/76
[2020-08-28] MEDS ORDERED: POTASSIUM CHLORIDE 20 MEQ TAB.ER.PRT PO ONE (13:00)
[2020-08-28 13:43] VITALS: BP 146/89
== END 2020-08-28 14:55 | disposition left against medical advice (07) | DRG 93 ==
LOC: ED 08-28 01:18 → EDIP 08-28 02:22 → 4WST 08-28 02:28
PROVIDERS: ADMIT Family Medicine; ATTEND Hospitalist
DX: G92 Toxic encephalopathy (principal); E87.6 Hypokalemia; I11.0 Hypertensive heart disease with heart failure; T40.605A Adverse effect of unspecified narcotics, initial encounter; F17.200 Nicotine dependence, unspecified, uncomplicated; F03.90 Unspecified dementia, unspecified severity, without behavioral disturbance, psychotic disturbance, mood disturbance, and anxiety; F10.20 Alcohol dependence, uncomplicated; Y90.9 Presence of alcohol in blood, level not specified; F19.10 Other psychoactive substance abuse, uncomplicated; G89.29 Other chronic pain; M54.9 Dorsalgia, unspecified; I50.9 Heart failure, unspecified; J98.4 Other disorders of lung; Y92.098 Other place in other non-institutional residence as the place of occurrence of the external cause; Z71.41 Alcohol abuse counseling and surveillance of alcoholic
CPT/HCPCS: 36415; 70450; 71045; 80053; 80299; 80307; 80320; 80329; 81003; 82140; 85025; 93005; 96374; 99285; G0378; G0480; J2060; J3480